=== PATIENT | female | born 1955 | race Caucasian/White ===

== ENCOUNTER 2019-04-15 08:22 | Outpatient (CLI) | payer MEDICARE, SELFPAY ==
[2019-04-15 09:02] LABS: Basophils Absolute Auto 0.1 K/mm3 (0.0-0.1); Basophils Percent Auto 0.4 % (0.2-1.2); Eosinophils Absolute Auto 0.4 K/mm3 (0-0.3); Eosinophils Percent Auto 2.6 % (0-4.4); Hemoglobin 13.2 g/dL (12.0-15.0); Immature Granulocyte Absolute 0.07 K/mm3 (0.00-0.031); Immature Granulocyte Percent A 0.5 % (0-0.5); Lymphocytes Absolute Auto 3.87 K/mm3 (0.9-3.2); Mean Corpuscular Hemoglobin 28.9 pg (26-34); Mean Corpuscular Volume 87.5 fl (80-100); Mean Platelet Volume 9.9 fl (7.4-10.4); Monocytes Absolute Auto 1.7 K/mm3 (0.1-0.6); Monocytes Percent Auto 11.3 % (2.6-8.5); Neutrophils Absolute Auto 9.3 K/mm3 (1.3-6.7); Neutrophils Percent Auto 60.2 % (45.5-73.1); Platelet Count Result 388 k/mm3 (150-375); Red Blood Count 4.57 M/mm3 (4.2-5.4); Red Cell Distribution Width 14.6 % (11.5-14.5); White Blood Count 15.5 K/mm3 (4.5-10.0)
[2019-04-15 09:13] LABS: Alanine Aminotransferase 14 U/L (4-35); Alkaline Phosphatase 105 U/L (38-126); Aspartate Amino Transferase 22 U/L (14-36); Bilirubin,Total 0.4 mg/dL (0.2-1.3); Blood Urea Nitrogen 6 mg/dL (7-17); Calcium 9.5 mg/dL (8.4-10.2); Carbon Dioxide 29 mmol/L (22-30); Chloride 90 mmol/L (98-107); Cholesterol 146 mg/dL (0-200); Estimated Glomerular Filt Rate > 60; Glucose 102 mg/dL (65-105); HDL Direct 47 mg/dL; Potassium 4.2 mmol/L (3.4-5.0); Sodium 133 mmol/L (137-145); Triglycerides 129 mg/dL (<150)
[2019-04-15 09:24] LABS: LDL Cholesterol Direct 80 mg/dL
== END 2019-04-15 08:23 | disposition home or self-care (01) ==
PROVIDERS: PCP Internal Medicine; Visit Provider Internal Medicine
DX: E78.5 Hyperlipidemia, unspecified (principal); R73.03 Prediabetes; D75.1 Secondary polycythemia; I10 Essential (primary) hypertension; Z90.09 Acquired absence of other part of head and neck; Z79.899 Other long term (current) drug therapy
CPT/HCPCS: 36415; 80053; 80061; 83036; 84443; 85025

== ENCOUNTER 2019-05-07 08:54 | Outpatient (CLI) | payer MEDICARE, SELFPAY ==
--- NOTE | ~2019-05-07 | CT_ITS ---
EXAMINATION: CT chest wo con EXAM DATE: 05/07/2019 09:38 INDICATION: Lung nodule follow-up. TECHNIQUE: Spiral CT of the chest without contrast. Axial, coronal and sagittal images were reviewe d. Coronal maximum intensity pixel images of chest reviewed. The dose-length product (DLP) for this examination was 116.47 mGy-cm. The exposure was tailored according to patient size (auto mA exposur e control), and iterative reconstruction (ASIR) was used as additional dose reduction technique. Comp arison is made to prior examination from 12/14/2018. FINDINGS: Again there are scattered small pulmonary nodules up to 4 mm. The previously seen 1 cm med ial middle and lower lobe opacities have resolved. These were likely small foci of infection or posti nfectious. There is mild emphysema. There are no pleural or pericardial effusions. Tracheobronchia l tree is patent. There is no mediastinal, hilar or axillary lymphadenopathy. There is no pneumot horax. Heart normal in size. There is moderate coronary arterial calcification, arterial sclerosi s. Upper abdomen is unremarkable. There is moderate thoracic spondylosis without osteoblastic or o steolytic lesions identified. IMPRESSION: 1. Resolution of previously seen new larger pulmonary nodules. 2. Stable scattered granulomas. 3. Mild emphysema. Reviewed, dictated and finalized at location A.
[2019-05-07 10:03] LABS: Basophils Absolute Auto 0.1 K/mm3 (0.0-0.1); Basophils Percent Auto 0.3 % (0.2-1.2); Eosinophils Absolute Auto 0.2 K/mm3 (0-0.3); Eosinophils Percent Auto 1.4 % (0-4.4); Hematocrit 38.7 % (37.0-47.0); Hemoglobin 12.8 g/dL (12.0-15.0); Immature Granulocyte Absolute 0.09 K/mm3 (0.00-0.031); Immature Granulocyte Percent A 0.6 % (0-0.5); Lymphocytes Absolute Auto 4.68 K/mm3 (0.9-3.2); Lymphocytes Percent Auto 32.7 % (18.3-44.2); Mean Corpuscular HGB Conc 33.1 g/dl (32-36); Mean Corpuscular Hemoglobin 29.2 pg (26-34); Mean Corpuscular Volume 88.2 fl (80-100); Mean Platelet Volume 9.8 fl (7.4-10.4); Monocytes Absolute Auto 1.3 K/mm3 (0.1-0.6); Monocytes Percent Auto 8.9 % (2.6-8.5); Neutrophils Percent Auto 56.1 % (45.5-73.1); Platelet Count Result 417 k/mm3 (150-375); Red Blood Count 4.39 M/mm3 (4.2-5.4); Red Cell Distribution Width 14.6 % (11.5-14.5); White Blood Count 14.3 K/mm3 (4.5-10.0)
== END 2019-05-07 08:55 | disposition home or self-care (01) ==
PROVIDERS: PCP Internal Medicine; Visit Provider Nurse Practitioner Family
DX: D72.829 Elevated white blood cell count, unspecified (principal); R91.1 Solitary pulmonary nodule; J43.9 Emphysema, unspecified; R91.8 Other nonspecific abnormal finding of lung field
CPT/HCPCS: 36415; 71250; 85025

== ENCOUNTER 2019-08-21 10:11 | Outpatient (CLI) | payer MEDICARE, SELFPAY ==
[2019-08-21 11:01] LABS: Albumin Level 4.1 g/dL (3.5-5.1); Blood Urea Nitrogen 7 mg/dL (7-17); Calcium 9.3 mg/dL (8.4-10.2); Carbon Dioxide 29 mmol/L (22-30); Chloride 98 mmol/L (98-107); Estimated Glomerular Filt Rate > 60; Glucose 93 mg/dL (65-105); Phosphorus 3.9 mg/dL (2.5-4.5); Potassium 3.8 mmol/L (3.4-5.0); Sodium 134 mmol/L (137-145)
[2019-08-21 13:28] LABS: Creatinine Urine 125.2 mg/dL; Total Protein Urine Random 23 mg/dL
== END 2019-08-21 10:12 | disposition home or self-care (01) ==
LOC: ANHLAB 10:14
PROVIDERS: PCP Internal Medicine; Visit Provider Internal Medicine Nephrology
DX: E87.1 Hypo-osmolality and hyponatremia (principal); I10 Essential (primary) hypertension
CPT/HCPCS: 36415; 80069; 82570; 84156

== ENCOUNTER 2019-11-02 10:19 | Outpatient (CLI) | payer MEDICARE, SELFPAY ==
[2019-11-02 11:00] LABS: Cholesterol 172 mg/dL (0-200); HDL Direct 42 mg/dL; Triglycerides 185 mg/dL (<150)
[2019-11-02 11:24] LABS: LDL Cholesterol Direct 103 mg/dL
== END 2019-11-02 10:20 | disposition home or self-care (01) ==
PROVIDERS: PCP Internal Medicine; Visit Provider Internal Medicine
DX: E78.5 Hyperlipidemia, unspecified (principal)
CPT/HCPCS: 36415; 80061

== ENCOUNTER 2020-04-25 08:20 | Outpatient (CLI) | payer MEDICARE, SELFPAY ==
[2020-04-25 09:45] LABS: Alanine Aminotransferase 12 U/L (4-35); Albumin Level 3.9 g/dL (3.5-5.1); Alkaline Phosphatase 88 U/L (38-126); Aspartate Amino Transferase 19 U/L (14-36); Bilirubin,Total 0.3 mg/dL (0.2-1.3); Cholesterol 170 mg/dL (0-200); HDL Direct 42 mg/dL; Triglycerides 184 mg/dL (<150)
[2020-04-25 09:57] LABS: LDL Cholesterol Direct 99 mg/dL
[2020-04-25 11:04] LABS: Vitamin D 25 Hydroxy > 126.0 ng/mL
== END 2020-04-25 08:21 | disposition home or self-care (01) ==
LOC: ANHLAB 08:30
PROVIDERS: PCP Internal Medicine; Visit Provider Internal Medicine
DX: E78.5 Hyperlipidemia, unspecified (principal); Z90.09 Acquired absence of other part of head and neck; Z79.899 Other long term (current) drug therapy; E55.9 Vitamin D deficiency, unspecified
CPT/HCPCS: 36415; 80061; 80076; 82306; 84443

== ENCOUNTER 2020-07-29 10:07 | Outpatient (CLI) | payer MEDICARE, SELFPAY ==
--- NOTE | ~2020-07-29 | US_ITS ---
EXAMINATION: US carotid duplex BI DATE: 07/29/2020 10:44 INDICATION: Disturbance of skin sensation with right upper extremity numbness. TECHNIQUE: Grayscale, color Doppler, and pulsed Doppler images of the cervical carotid arteries were obtained. The degree of vessel stenosis is placed in one of the following categories: normal, <50%, 5 0-69%, >=70% but less than near-occlusion, near-occlusion, or total occlusion. Note that percent sten osis relative to normal distal artery lumen diameter is indirectly measured from velocity measurement s as described by Hung, et al. Radiology 2003; 229:340-346. COMPARISON: None. FINDINGS: RIGHT: The right common carotid artery (CCA) peak systolic velocity (PSV) is 83 cm/s. The right internal car otid artery (ICA) PSV is 91 cm/s. The right ICA end-diastolic velocity (EDV) is 23 cm/s. The right IC A/CCA PSV ratio is 1.1. Grayscale and color Doppler images yield an estimate of <50% diameter reducti on from plaque in the ICA. The external carotid artery (ECA) PSV is 92 cm/s. There is antegrade flow in the right vertebral artery. LEFT: The left CCA PSV is 56 cm/s. The left ICA PSV is 83 cm/s. The left ICA EDV is 33 cm/s. The left ICA/C CA PSV ratio is 1.5. Grayscale and color Doppler images yield an estimate of <50% diameter reduction from plaque in the ICA. The ECA PSV is 41 cm/s. There is antegrade flow in the left vertebral artery. IMPRESSION: 1. <50% stenosis in the right internal carotid artery. 2. <50% stenosis in the left internal carotid artery. Reviewed, dictated and finalized at location A.
== END 2020-07-29 10:08 | disposition home or self-care (01) ==
PROVIDERS: PCP Internal Medicine; Visit Provider Nurse Practitioner
DX: R20.0 Anesthesia of skin (principal); I65.23 Occlusion and stenosis of bilateral carotid arteries
CPT/HCPCS: 93880

== ENCOUNTER 2020-09-01 08:24 | Outpatient (CLI) | payer MEDICARE, SELFPAY ==
[2020-09-01 08:59] LABS: Albumin Level 3.9 g/dL (3.5-5.1); Anion Gap 8 mmol/L (8-16); Blood Urea Nitrogen 5 mg/dL (7-17); Carbon Dioxide 28 mmol/L (22-30); Chloride 103 mmol/L (98-107); Estimated Glomerular Filt Rate > 60; Glucose 96 mg/dL (65-105); Phosphorus 3.7 mg/dL (2.5-4.5); Potassium 3.6 mmol/L (3.4-5.0); Sodium 139 mmol/L (137-145)
== END 2020-09-01 08:25 | disposition home or self-care (01) ==
LOC: ANHLAB 08:31
PROVIDERS: PCP Internal Medicine; Visit Provider Internal Medicine Nephrology
DX: E87.1 Hypo-osmolality and hyponatremia (principal)
CPT/HCPCS: 36415; 80069

== ENCOUNTER → 2020-10-14 10:07 | Outpatient (CLI) | payer MEDICARE, SELFPAY ==
--- NOTE | ~2020-10-14 | XR_ITS ---
XR finger 3rd LT min 2V DATE: 10/14/2020 10:44 INDICATION: Third digit pain TECHNIQUE: 5 views COMPARISON: None FINDINGS: There is probable old mild fracture deformity of the middle phalanx of the third digit. No recent fracture or dislocation, periosteal reaction or bone destruction, subcutaneous emphysema or radiopaque soft tissue foreign body is noted. Joint spaces are preserved. No erosive changes are not ed. IMPRESSION: Probable mild old healed fracture deformity of the proximal shaft of the middle phalanx o f the third digit; no acute significant finding Reviewed, dictated and finalized at location A. IMPRESSION: Probable mild old healed fracture deformity of the proximal shaft o f the middle phalanx of the third digit; no acute significant finding
== END ==
PROVIDERS: PCP Internal Medicine; Visit Provider Nurse Practitioner
DX: M79.645 Pain in left finger(s) (principal)
CPT/HCPCS: 73140

== ENCOUNTER 2020-10-27 08:32 | Outpatient (CLI) | payer MEDICARE, SELFPAY ==
--- NOTE | ~2020-10-27 | MM_ITS ---
EXAMINATION: MM screening [facility] BI w jaylon HISTORY: Screening TECHNIQUE: Craniocaudal and mediolateral oblique 3-D tomosynthesis images were obtained and synthetic 2-D images were generated. CAD analysis was submitted and interpreted. COMPARISON: Comparison to multiple prior studies sequentially, with oldest reviewed study dated 05/22. BREAST PARENCHYMAL COMPOSITION: There are scattered areas of fibroglandular density. FINDINGS: There is no evidence of suspicious mass, calcification, or architectural distortion to sugg est malignancy in either breast. There has been no suspicious interval change. IMPRESSION: 1. No mammographic evidence of malignancy. 2. Recommend routine screening mammography in one year. BI-RADS Category 1: Negative Reviewed, dictated and finalized at location A.
== END 2020-10-27 08:33 | disposition home or self-care (01) ==
LOC: ANHIMG 08:36
PROVIDERS: PCP Internal Medicine; Visit Provider Obstetrics & Gynecology
DX: Z12.31 Encounter for screening mammogram for malignant neoplasm of breast (principal)
CPT/HCPCS: 77063; 77067

== ENCOUNTER 2020-12-22 08:13 | Outpatient (CLI) | payer MEDICARE, SELFPAY ==
[2020-12-22 08:47] LABS: Alanine Aminotransferase 12 U/L (4-35); Albumin Level 4.1 g/dL (3.5-5.1); Alkaline Phosphatase 90 U/L (38-126); Anion Gap 8 mmol/L (8-16); Aspartate Amino Transferase 19 U/L (14-36); Bilirubin,Total 0.3 mg/dL (0.2-1.3); Blood Urea Nitrogen 13 mg/dL (7-17); Calcium 9.4 mg/dL (8.4-10.2); Carbon Dioxide 27 mmol/L (22-30); Chloride 100 mmol/L (98-107); Cholesterol 149 mg/dL (0-200); Estimated Glomerular Filt Rate > 60; Glucose 96 mg/dL (65-110); HDL Direct 48 mg/dL; Sodium 135 mmol/L (137-145); Triglycerides 156 mg/dL (<150)
[2020-12-22 08:58] LABS: LDL Cholesterol Direct 74 mg/dL
[2020-12-22 09:22] LABS: Vitamin D 25 Hydroxy 95.1 ng/mL
== END 2020-12-22 08:14 | disposition home or self-care (01) ==
LOC: ANHLAB 08:18
PROVIDERS: PCP Internal Medicine; Visit Provider Internal Medicine
DX: E87.1 Hypo-osmolality and hyponatremia (principal); R73.03 Prediabetes; Z79.899 Other long term (current) drug therapy; E78.5 Hyperlipidemia, unspecified; E55.9 Vitamin D deficiency, unspecified
CPT/HCPCS: 36415; 80053; 80061; 82306; 83036

== ENCOUNTER → 2021-01-26 04:03 | Outpatient (CLI) | payer MEDICARE, SELFPAY ==
[2021-01-26 13:19] LABS: Influenza Control Positive
[2021-01-26 20:05] LABS: SARS-CoV-2 RNA PCR Negative
== END ==
PROVIDERS: PCP Internal Medicine; Visit Provider Internal Medicine
DX: R09.89 Other specified symptoms and signs involving the circulatory and respiratory systems (principal); Z20.822 Contact with and (suspected) exposure to COVID-19
CPT/HCPCS: 87804; C9803; U0003; U0005

== ENCOUNTER 2021-04-26 07:35 | Outpatient (CLI) | payer MEDICARE, SELFPAY ==
[2021-04-26 08:34] LABS: Anion Gap 7 mmol/L (8-16); Blood Urea Nitrogen 24 mg/dL (7-17); Calcium 9.2 mg/dL (8.4-10.2); Carbon Dioxide 25 mmol/L (22-30); Chloride 104 mmol/L (98-107); Estimated Glomerular Filt Rate > 60; Glucose 101 mg/dL (65-110); Potassium 4.9 mmol/L (3.4-5.0); Sodium 136 mmol/L (137-145)
[2021-04-26 08:53] LABS: Vitamin D 25 Hydroxy 76.7 ng/mL
== END 2021-04-26 07:36 | disposition home or self-care (01) ==
LOC: ANHLAB 07:40
PROVIDERS: PCP Internal Medicine; Visit Provider Internal Medicine
DX: R73.03 Prediabetes (principal); Z79.899 Other long term (current) drug therapy; E55.9 Vitamin D deficiency, unspecified
CPT/HCPCS: 36415; 80048; 82306; 83036

== ENCOUNTER → 2021-04-30 03:34 | Outpatient (CLI) | payer MEDICARE, SELFPAY ==
[2021-04-30 11:17] LABS: Influenza A QL RT-PCR Negative (Negative); Influenza B QL RT-PCR Negative (Negative); SARS-CoV-2 RNA PCR Negative
== END ==
PROVIDERS: PCP Internal Medicine; Visit Provider Internal Medicine
DX: R68.89 Other general symptoms and signs (principal); Z20.822 Contact with and (suspected) exposure to COVID-19
CPT/HCPCS: 87502; C9803; U0003; U0005

== ENCOUNTER 2021-05-07 09:23 | Outpatient (CLI) | payer MEDICARE, SELFPAY ==
[2021-05-08 02:05] LABS: Rheumatoid Factor < 8.6 IU/ML (<12)
[2021-05-12 11:48] LABS: Anti Cyclic Citrullinated Pept <16 Units (<20)
== END 2021-05-07 09:24 | disposition home or self-care (01) ==
PROVIDERS: PCP Internal Medicine; Visit Provider Internal Medicine
DX: M19.041 Primary osteoarthritis, right hand (principal); M19.042 Primary osteoarthritis, left hand
CPT/HCPCS: 36415; 86200; 86430

== ENCOUNTER 2021-05-11 09:46 | Outpatient (CLI) | payer MEDICARE, SELFPAY ==
--- NOTE | ~2021-05-11 | DEXA_ITS ---
Bone Density Report Name: JOE BEJARANO I Age: 65 Sex: Female Ethnicity: White Date of : 1955 Indication: postmenopausal; height loss; prior fracture; asthma or emphysema; Referring Provider: RANJEET CRUZ Study: Bone densitometry was performed. Exam Date: May 11, 2021 Accession number: [id number] Bone Density: Region BMD T-score Z-score Classification AP Spine (L1-L4) 0.976 -0.6 1.2 Normal Femoral Neck (Left) 0.836 -0.1 1.5 Normal Total Hip (Left) 0.941 0.0 1.3 Normal Total Hip Bilateral Avg 0.923 -0.2 1.2 Normal Femoral Neck (Right) 0.798 -0.5 1.2 Normal Total Hip (Right) 0.905 -0.3 1.0 Normal World Health Organization criteria for BMD impression classify patients as: Normal (T-score at or above -1.0), Osteopenia (T-score between -1.0 and -2.5), or Osteoporosis (T-score at or below -2.5). 10-year Fracture Risk: FRAX not reported because: All T-scores for Spine Total, Hip Total, Femoral Neck at or above -1.0 Prior hip or vertebral fracture Clinical Information Provided by Patient: Have had a previous hip or vertebral fracture Has had a low trauma fracture Smokes Has the following medical conditions: Asthma or Emphysema Patient maximum height was 62 Menopause Age: 51 No regular weight bearing exercise Drinks caffeinated beverages Onset of menses at age 10 Number of children 1 Impression: The patient has normal bone mass. The patient has risk factors, including: smoking, previous fracture. Discussion: INCREASED RISK OF FRACTURE DUE TO HISTORY OF FRACTURE. The patient's previous fracture puts the patient at high risk of a future fracture. In untreated patients, the risk of osteoporotic fracture increases approximately two-fold for each 1.0 SD decrease in T-score. Low bone density is not the only risk factor for fracture; also consider factors such as patient's age, frailty or poor health, risk of falling, risk of injury, previous osteoporotic fracture, family history of osteoporosis, cigarette smoking, low body weight, etc. Not everyone with a low trauma fracture has osteoporosis; osteomalacia and other metabolic bone disorders should also be considered. Patients who have osteoporosis should be evaluated for specific diseases and conditions (secondary causes) that may cause or contribute to bone loss and fracture risk. National Osteoporosis Foundation (NOF) recommends pharmacologic intervention for patients with a prior hip or vertebral fracture regardless of BMD T-score. The patient should follow a healthful lifestyle (good nutrition with adequate calcium and vitamin D, and appropriate weight-bearing exercise). Follow-Up: Consider a repeat BMD and Vertebral Fracture Assessment (VFA) exam in 2 years or sooner if medically necessary, to reassess this patient's status. Reported by: DO on 05/11
== END 2021-05-11 09:47 | disposition home or self-care (01) ==
PROVIDERS: PCP Internal Medicine; Visit Provider Internal Medicine
DX: Z78.0 Asymptomatic menopausal state (principal)
CPT/HCPCS: 77080

== ENCOUNTER 2021-05-18 13:02 | Outpatient (CLI) | payer MEDICARE, SELFPAY ==
--- NOTE | ~2021-05-18 | CT_ITS ---
EXAMINATION: CT lung screening DATE: 05/18/2021 13:33 INDICATION: Personal history of nicotine dependence, current smoker with 30 pack year history TECHNIQUE: Computed tomography (CT) of the chest was performed without intravenous contrast. The dose -length product (DLP) was 106.80 mGy-cm. Automated exposure control and iterative reconstruction tech [employer] were employed. COMPARISON: 05/07/2019 FINDINGS: There are multiple stable pulmonary nodules scattered throughout the lungs. The largest sarah sures 5 mm in the right lower lobe. There is mild emphysema. The lungs are free of acute opacities. T here is no pleural effusion or pneumothorax. The left thyroid lobe surgically absent. No pathological ly enlarged thoracic lymph nodes are identified. The heart size is normal. Calcified coronary artery atherosclerosis is noted. There is moderate thoracic spondylosis. IMPRESSION: 1. Lung-RADS category 2: Benign appearance or behavior. Continue annual screening with noncontrast lo w-dose chest CT in 12 months. Reviewed, dictated and finalized at location B. IMPRESSION: 1. Lung-RADS category 2: Benign appearance or behavior. Continue annual screeni ng with noncontrast low-dose chest CT in 12 months.
--- NOTE | ~2021-05-18 | XR_ITS ---
XR hip LT min 2V 05/18/2021 13:28 Indication: Left hip pain Procedure: 2 views left hip Comparison: 01/25/2017 Findings: No fracture, subluxation or dislocation. No significant soft tissue abnormality. No foreign bodies. Impression: 1: No acute bone or joint abnormality. Reviewed, dictated and finalized at location A. Impression: 1: No acute bone or joint abnormality.
== END 2021-05-18 13:03 | disposition home or self-care (01) ==
PROVIDERS: PCP Internal Medicine; Visit Provider Internal Medicine
DX: Z12.2 Encounter for screening for malignant neoplasm of respiratory organs (principal); F17.210 Nicotine dependence, cigarettes, uncomplicated
CPT/HCPCS: 71271; 73502

== ENCOUNTER 2021-11-08 08:03 | Outpatient (CLI) | payer MEDICARE, SELFPAY ==
[2021-11-08 09:00] LABS: Alanine Aminotransferase 16 U/L (6-35); Albumin Level 3.9 g/dL (3.5-5.1); Alkaline Phosphatase 94 U/L (38-126); Anion Gap 9 mmol/L (8-16); Aspartate Amino Transferase 24 U/L (14-36); Bilirubin,Total 0.3 mg/dL (0.2-1.3); Blood Urea Nitrogen 14 mg/dL (7-17); Calcium 9.2 mg/dL (8.4-10.2); Carbon Dioxide 22 mmol/L (22-30); Chloride 97 mmol/L (98-107); Cholesterol 156 mg/dL (0-200); Estimated Glomerular Filt Rate > 60; Glucose 102 mg/dL (65-110); HDL Direct 37 mg/dL; Potassium 4.1 mmol/L (3.4-5.0); Sodium 128 mmol/L (137-145); Triglycerides 254 mg/dL (<150)
[2021-11-08 09:11] LABS: LDL Cholesterol Direct 77 mg/dL
== END 2021-11-08 08:04 | disposition home or self-care (01) ==
LOC: ANHLAB 08:05
PROVIDERS: PCP Internal Medicine; Visit Provider Internal Medicine
DX: E87.1 Hypo-osmolality and hyponatremia (principal); R73.03 Prediabetes; Z79.899 Other long term (current) drug therapy; E78.5 Hyperlipidemia, unspecified
CPT/HCPCS: 36415; 80053; 80061; 83036

== ENCOUNTER 2022-03-04 15:14 | Outpatient (CLI) | payer MEDICARE, SELFPAY ==
--- NOTE | ~2022-03-04 | MM_ITS ---
EXAMINATION: MM screening [facility] BI w jaylon HISTORY: Screening mammogram TECHNIQUE: Craniocaudal and mediolateral oblique 3-D tomosynthesis images were obtained and synthetic 2-D images were generated. CAD analysis was submitted and interpreted. COMPARISON: 10/27/2020, 12/12/2017, 11/16/2015 bilateral screening mammogram examinations BREAST PARENCHYMAL COMPOSITION: There are scattered areas of fibroglandular density. FINDINGS: Scattered bilateral benign calcifications are again noted. There is no evidence of suspicio us mass, calcification, or architectural distortion to suggest malignancy in either breast. There has been no suspicious interval change. IMPRESSION: 1. No mammographic evidence of malignancy. 2. Recommend routine screening mammography in one year. BI-RADS Category 2: Benign finding(s). Reviewed, dictated and finalized at location B. TENDER
== END 2022-03-04 15:15 | disposition home or self-care (01) ==
LOC: ANHIMG 15:17
PROVIDERS: PCP Internal Medicine; Visit Provider Obstetrics & Gynecology
DX: Z12.31 Encounter for screening mammogram for malignant neoplasm of breast (principal)
CPT/HCPCS: 77063; 77067

== ENCOUNTER 2022-04-30 09:18 | Outpatient (CLI) | payer MEDICARE, SELFPAY ==
[2022-04-30 09:54] LABS: Alanine Aminotransferase 17 U/L (6-35); Albumin Level 4.3 g/dL (3.5-5.1); Alkaline Phosphatase 90 U/L (38-126); Anion Gap 3 mmol/L (8-16); Aspartate Amino Transferase 21 U/L (14-36); Bilirubin,Total 0.4 mg/dL (0.2-1.3); Blood Urea Nitrogen 13 mg/dL (7-17); Calcium 9.2 mg/dL (8.4-10.2); Carbon Dioxide 27 mmol/L (22-30); Chloride 102 mmol/L (98-107); Cholesterol 171 mg/dL (0-200); Estimated Glomerular Filt Rate > 60; Glucose 97 mg/dL (65-110); HDL Direct 44 mg/dL; Sodium 132 mmol/L (137-145); Triglycerides 232 mg/dL (<150)
[2022-04-30 10:01] LABS: LDL Cholesterol Direct 83 mg/dL
[2022-04-30 10:05] LABS: Vitamin D 25 Hydroxy 57.2 ng/mL
[2022-04-30 11:18] LABS: Hemoglobin A1C 5.9 % (<5.7)
== END 2022-04-30 09:19 | disposition home or self-care (01) ==
PROVIDERS: PCP Internal Medicine; Visit Provider Nurse Practitioner
DX: E78.5 Hyperlipidemia, unspecified (principal); R73.03 Prediabetes; E55.9 Vitamin D deficiency, unspecified
CPT/HCPCS: 36415; 80053; 80061; 82306; 83036

== ENCOUNTER 2022-05-19 10:17 | Outpatient (CLI) | payer MEDICARE, SELFPAY ==
--- NOTE | ~2022-05-19 | CT_ITS ---
EXAMINATION: CT lung screening DATE: 05/19/2022 10:36 INDICATION: Personal history of nicotine dependence, current smoker with 40 pack year history TECHNIQUE: Computed tomography (CT) of the chest was performed without intravenous contrast. The dose -length product (DLP) was 101.36 mGy-cm. Automated exposure control and iterative reconstruction tech [employer] were employed. COMPARISON: 05/18/2021 FINDINGS: Again seen are multiple stable pulmonary nodules scattered throughout the lungs. The larges t measures 5 mm in the right lower lobe. There is mild emphysema. No pleural effusion or pneumothorax . The lungs are free of acute opacities. There are changes of left hemithyroidectomy. No pathological ly enlarged thoracic lymph nodes are identified. The heart size is normal. Calcified coronary artery atherosclerosis is noted. There is moderate thoracic spondylosis. IMPRESSION: 1. Lung-RADS category 2: Benign appearance or behavior. Continue annual screening with noncontrast lo w-dose chest CT in 12 months. Reviewed, dictated and finalized at location L. IMPRESSION: 1. Lung-RADS category 2: Benign appearance or behavior. Continue annual screeni ng with noncontrast low-dose chest CT in 12 months.
== END 2022-05-19 10:18 | disposition home or self-care (01) ==
PROVIDERS: PCP Internal Medicine; Visit Provider Physician Assistant
DX: Z12.2 Encounter for screening for malignant neoplasm of respiratory organs (principal); F17.210 Nicotine dependence, cigarettes, uncomplicated
CPT/HCPCS: 71271

== ENCOUNTER 2022-11-16 14:20 | Outpatient (CLI) | payer MEDICARE, SELFPAY ==
[2022-11-16 14:57] LABS: Basophils Absolute Auto 0.1 K/mm3 (0.0-0.1); Basophils Percent Auto 0.5 % (0.2-1.2); Eosinophils Absolute Auto 0.3 K/mm3 (0-0.3); Eosinophils Percent Auto 2.3 % (0-4.4); Hematocrit 38.2 % (37.0-47.0); Hemoglobin 11.8 g/dL (12.0-15.0); Immature Granulocyte Absolute 0.06 K/mm3 (0.00-0.031); Immature Granulocyte Percent A 0.4 % (0-0.5); Lymphocytes Absolute Auto 4.43 K/mm3 (0.9-3.2); Lymphocytes Percent Auto 32.8 % (18.3-44.2); Mean Corpuscular HGB Conc 30.9 g/dl (32-36); Mean Corpuscular Hemoglobin 26.9 pg (26-34); Mean Platelet Volume 10.8 fl (7.4-10.4); Monocytes Absolute Auto 1.3 K/mm3 (0.1-0.6); Monocytes Percent Auto 9.3 % (2.6-8.5); Neutrophils Absolute Auto 7.4 K/mm3 (1.3-6.7); Neutrophils Percent Auto 54.7 % (45.5-73.1); Platelet Count Result 402 k/mm3 (150-375); Red Blood Count 4.39 M/mm3 (4.2-5.4); Red Cell Distribution Width 15.5 % (11.5-14.5); White Blood Count 13.5 K/mm3 (4.5-10.0)
[2022-11-16 15:23] LABS: CRP < 0.5 mg/dL (<1.0)
[2022-11-16 15:40] LABS: Erythrocyte Sedimentation Rate 17 mm/hr (0-20)
== END 2022-11-16 14:21 | disposition home or self-care (01) ==
LOC: ANHLAB 14:21
PROVIDERS: PCP Family Medicine; Visit Provider Student in an Organized Health Care Education/Training Program
DX: R51.9 Headache, unspecified (principal)
CPT/HCPCS: 36415; 85025; 85652; 86140; 86334

== ENCOUNTER 2022-12-03 08:14 | Outpatient (CLI) | payer MEDICARE, SELFPAY ==
--- NOTE | ~2022-12-03 | MR_ITS ---
EXAMINATION: MR brain/brain stem wo/w con DATE: 12/03/2022 09:09 INDICATION: Left temporal headache. TECHNIQUE: Magnetic resonance imaging (MRI) of the brain and brainstem was performed without and with 17 mL MultiHance intravenous contrast. COMPARISON: Brain MRI 02/14/2006 FINDINGS: There are scattered areas of nonspecific increased T2-weighted signal intensity in the cere bral white matter and katharine. There is no intracranial hemorrhage, acute infarction, or abnormal intrac ranial mass lesion. The ventricles are normal in size. There are likely changes of ocular lens replac ement surgeries. The mastoid air cells are normal. The paranasal sinuses are clear. IMPRESSION: 1. Mild nonspecific cerebral white matter disease and pontine disease, which likely represents chroni c small vessel ischemic disease. Reviewed, dictated and finalized at location A. IMPRESSION: 1. Mild nonspecific cerebral white matter disease and pontine disease, which sean wilson represents chronic small vessel ischemic disease.
== END 2022-12-03 08:15 | disposition home or self-care (01) ==
PROVIDERS: PCP Family Medicine; Visit Provider Student in an Organized Health Care Education/Training Program
DX: R51.9 Headache, unspecified (principal); R90.82 White matter disease, unspecified; G93.89 Other specified disorders of brain
CPT/HCPCS: 70553; A9577

== ENCOUNTER 2022-12-22 08:03 | Outpatient (CLI) | payer MEDICARE, SELFPAY ==
[2022-12-22 09:01] LABS: Alanine Aminotransferase 13 U/L (6-35); Albumin Level 4.2 g/dL (3.5-5.1); Alkaline Phosphatase 83 U/L (38-126); Anion Gap 8 mmol/L (8-16); Aspartate Amino Transferase 21 U/L (14-36); Bilirubin,Total 0.4 mg/dL (0.2-1.3); Blood Urea Nitrogen 20 mg/dL (7-17); Calcium 9.4 mg/dL (8.4-10.2); Carbon Dioxide 24 mmol/L (22-30); Chloride 101 mmol/L (98-107); Estimated Glomerular Filt Rate > 60; Glucose 104 mg/dL (65-110); Potassium 4.2 mmol/L (3.4-5.0); Sodium 133 mmol/L (137-145)
== END 2022-12-22 08:04 | disposition home or self-care (01) ==
PROVIDERS: PCP Family Medicine; Visit Provider Family Medicine
DX: E87.1 Hypo-osmolality and hyponatremia (principal)
CPT/HCPCS: 36415; 80053

== ENCOUNTER 2023-02-02 16:39 | Outpatient (CLI) | payer MEDICARE, SELFPAY ==
[2023-02-02 18:54] LABS: Strep Group A RT-PCR NOT DETECTED (Negative)
== END 2023-02-02 16:40 | disposition home or self-care (01) ==
PROVIDERS: PCP Family Medicine; Visit Provider Nurse Practitioner Family
DX: J02.9 Acute pharyngitis, unspecified (principal)
CPT/HCPCS: 87651; 87880

== ENCOUNTER 2023-04-06 11:50 | Outpatient (CLI) | payer MEDICARE, SELFPAY ==
--- NOTE | ~2023-04-06 | MM_ITS ---
EXAMINATION: MM screening [facility] BI w jaylon HISTORY: Screening mammogram TECHNIQUE: Craniocaudal and mediolateral oblique 3-D tomosynthesis images were obtained and synthetic 2-D images were generated. CAD analysis was submitted and interpreted. COMPARISON: 03/04/2022, 10/27/2020 bilateral screening mammogram examinations BREAST PARENCHYMAL COMPOSITION: There are scattered areas of fibroglandular density. FINDINGS: Scattered benign calcifications are again noted. There is no evidence of suspicious mass, c alcification, or architectural distortion to suggest malignancy in either breast. There has been no s uspicious interval change. IMPRESSION: 1. No mammographic evidence of malignancy. 2. Recommend routine screening mammography in one year. BI-RADS Category 2: Benign finding(s). Reviewed, dictated and finalized at location A. GER FRAUD
== END 2023-04-06 11:51 | disposition home or self-care (01) ==
PROVIDERS: PCP Family Medicine; Visit Provider Obstetrics & Gynecology
DX: Z12.31 Encounter for screening mammogram for malignant neoplasm of breast (principal)
CPT/HCPCS: 77063; 77067

== ENCOUNTER 2023-05-22 13:43 | Outpatient (CLI) | payer MEDICARE, SELFPAY ==
--- NOTE | ~2023-05-22 | CT_ITS ---
EXAMINATION: CT lung screening DATE: 05/22/2023 14:00 INDICATION: Personal history nicotine dependence, current smoker with 40 pack year history TECHNIQUE: Computed tomography (CT) of the chest was performed without intravenous contrast. The dose -length product (DLP) was 97.73 mGy-cm. Automated exposure control and iterative reconstruction techn [employer] were employed. COMPARISON: 05/19/2022 FINDINGS: Multiple stable pulmonary nodules are again seen scattered throughout the lungs. The larges t measures 5 mm in the right lower lobe. There is mild emphysema. No new pulmonary nodules are identi fied. No pleural effusion or pneumothorax. Lungs are free of focal airspace opacities. No pathologica lly enlarged thoracic lymph nodes are identified. The heart size is normal. There are changes of left hemithyroidectomy. There is moderate thoracic spondylosis. Calcified coronary artery atherosclerosis is noted. IMPRESSION: 1. Lung-RADS category 2: Benign appearance or behavior. Continue annual screening with noncontrast lo w-dose chest CT in 12 months. Reviewed, dictated and finalized at location F. IMPRESSION: 1. Lung-RADS category 2: Benign appearance or behavior. Continue annual screeni ng with noncontrast low-dose chest CT in 12 months.
== END 2023-05-22 13:44 | disposition home or self-care (01) ==
LOC: ANHIMG 13:45
PROVIDERS: PCP Family Medicine; Visit Provider Physician Assistant
DX: Z12.2 Encounter for screening for malignant neoplasm of respiratory organs (principal); Z87.891 Personal history of nicotine dependence
CPT/HCPCS: 71271

== ENCOUNTER 2023-05-29 08:28 | Outpatient (CLI) | payer MEDICARE, SELFPAY ==
[2023-05-29 09:07] LABS: Basophils Absolute Auto 0.1 K/mm3 (0.0-0.1); Basophils Percent Auto 0.5 % (0.2-1.2); Eosinophils Absolute Auto 0.2 K/mm3 (0-0.3); Eosinophils Percent Auto 2.1 % (0-4.4); Hematocrit 38.5 % (37.0-47.0); Hemoglobin 11.9 g/dL (12.0-15.0); Immature Granulocyte Absolute 0.04 K/mm3 (0.00-0.031); Immature Granulocyte Percent A 0.4 % (0-0.5); Lymphocytes Absolute Auto 4.01 K/mm3 (0.9-3.2); Lymphocytes Percent Auto 38.4 % (18.3-44.2); Mean Corpuscular HGB Conc 30.9 g/dl (32-36); Mean Corpuscular Hemoglobin 26.2 pg (26-34); Mean Corpuscular Volume 84.6 fl (80-100); Mean Platelet Volume 10.4 fl (7.4-10.4); Monocytes Absolute Auto 0.8 K/mm3 (0.1-0.6); Monocytes Percent Auto 7.9 % (2.6-8.5); Neutrophils Absolute Auto 5.3 K/mm3 (1.3-6.7); Neutrophils Percent Auto 50.7 % (45.5-73.1); Platelet Count Result 415 k/mm3 (150-375); Red Blood Count 4.55 M/mm3 (4.2-5.4); Red Cell Distribution Width 16.1 % (11.5-14.5); White Blood Count 10.5 K/mm3 (4.5-10.0)
[2023-05-29 09:18] LABS: Alanine Aminotransferase 14 U/L (6-35); Albumin Level 4.1 g/dL (3.5-5.1); Alkaline Phosphatase 72 U/L (38-126); Anion Gap 5 mmol/L (4-12); Aspartate Amino Transferase 20 U/L (14-36); Bilirubin,Total 0.3 mg/dL (0.2-1.3); Blood Urea Nitrogen 18 mg/dL (7-17); Calcium 9.5 mg/dL (8.4-10.2); Carbon Dioxide 28 mmol/L (22-30); Chloride 107 mmol/L (98-107); Cholesterol 225 mg/dL (0-200); Estimated Glomerular Filt Rate > 60; Glucose 106 mg/dL (65-110); HDL Direct 38 mg/dL; Sodium 140 mmol/L (137-145); Triglycerides 233 mg/dL (<150)
[2023-05-29 09:29] LABS: LDL Cholesterol Direct 145 mg/dL
[2023-05-29 10:50] LABS: Hemoglobin A1C 6.3 % (<5.7)
== END 2023-05-29 08:29 | disposition home or self-care (01) ==
PROVIDERS: PCP Family Medicine; Visit Provider Family Medicine
DX: R91.8 Other nonspecific abnormal finding of lung field (principal); E78.2 Mixed hyperlipidemia; Z79.899 Other long term (current) drug therapy
CPT/HCPCS: 36415; 80053; 80061; 83036; 85025

== ENCOUNTER 2023-06-03 07:49 | Outpatient (CLI) | payer MEDICARE, SELFPAY ==
--- NOTE | ~2023-06-03 | DEXA_ITS ---
Bone Density Report Name: JOE BEJARANO I Age: 68 Sex: Female Ethnicity: White Date of : 1955 Indication: postmenopausal; screening for osteoporosis; height loss; inflammatory bowel disease; history of glucocorticoids; prior fracture; cancer; asthma or emphysema; Referring Provider: FABI VUONG Study: Bone densitometry was performed. Exam Date: June 03, 2023 Accession number: [id number] Bone Density: Region BMD T-score Z-score Classification AP Spine(L1-L4) 0.987 -0.5 1.5 Normal Femoral Neck (Left) 0.775 -0.7 1.1 Normal Total Hip (Left) 0.918 -0.2 1.2 Normal Femoral Neck (Right) 0.817 -0.3 1.5 Normal Total Hip (Right) 0.981 0.3 1.8 Normal Total Hip Mean 0.949 0.1 1.5 Normal World Health Organization criteria for BMD impression classify patients as: Normal (T-score at or above -1.0), Osteopenia (T-score between -1.0 and -2.5), or Osteoporosis (T-score at or below -2.5). 10-year Fracture Risk: FRAX not reported because: All T-scores for Spine Total, Hip Total, Femoral Neck at or above -1.0 Prior hip or vertebral fracture Clinical Information Provided by Patient: Have had a previous hip or vertebral fracture Has had a low trauma fracture Smokes Has taken Glucocorticoids Has the following medical conditions: Asthma or Emphysema, Cancer, Inflammatory bowel diseases Patient maximum height was 62 Menopause Age: 51 No regular weight bearing exercise Drinks caffeinated beverages Onset of menses at age 10 Number of children 1 Missed period for more than 6 months in a row Impression: The patient has normal bone mass. The patient has risk factors, including: smoking, previous fracture, history of glucocorticoid therapy. Discussion: INCREASED RISK OF FRACTURE DUE TO HISTORY OF FRACTURE. The patient's previous fracture puts the patient at high risk of a future fracture. In untreated patients, the risk of osteoporotic fracture increases approximately two-fold for each 1.0 SD decrease in T-score. Low bone density is not the only risk factor for fracture; also consider factors such as patient's age, frailty or poor health, risk of falling, risk of injury, previous osteoporotic fracture, family history of osteoporosis, cigarette smoking, low body weight, etc. Not everyone with a low trauma fracture has osteoporosis; osteomalacia and other metabolic bone disorders should also be considered. Patients who have osteoporosis should be evaluated for specific diseases and conditions (secondary causes) that may cause or contribute to bone loss and fracture risk. National Osteoporosis Foundation (NOF) recommends pharmacologic intervention for patients with a prior hip or vertebral fracture regardless of BMD T-score. The patient should follow a healthful lifestyle (good nutrition with adequate calciu
== END 2023-06-03 07:50 | disposition home or self-care (01) ==
PROVIDERS: PCP Family Medicine; Visit Provider Family Medicine
DX: Z13.820 Encounter for screening for osteoporosis (principal); R29.890 Loss of height; Z78.0 Asymptomatic menopausal state; F17.210 Nicotine dependence, cigarettes, uncomplicated; Z92.241 Personal history of systemic steroid therapy; Z85.9 Personal history of malignant neoplasm, unspecified
CPT/HCPCS: 77080

== ENCOUNTER 2023-07-08 09:57 | Outpatient (CLI) | payer MEDICARE, SELFPAY ==
--- NOTE | ~2023-07-08 | XR_ITS ---
XR cervical spine 4-5V DATE: 07/08/2023 10:36 INDICATION: Chronic pain. No injury. TECHNIQUE: AP, open-mouth, lateral views COMPARISON: None FINDINGS: C1 and C2 are normally aligned and the odontoid process is intact. No fracture or dislocati on or locked facet or prevertebral soft tissue swelling is evident. Moderately severe degenerative disc disease at C5-6 and particularly C6-7. IMPRESSION: Moderately severe degenerative disease at C5-6 and particularly C6-7 Reviewed, dictated and finalized at location A. IMPRESSION: Moderately severe degenerative disease at C5-6 and particularly C6- 7
--- NOTE | ~2023-07-08 | XR_ITS ---
XR lumbar spine 2-3V DATE: 07/08/2023 10:36 INDICATION: Back pain. Radiculopathy. No injury. TECHNIQUE: AP, lateral, cone-down lateral lumbosacral views COMPARISON: 01/25/2017 lumbar spine FINDINGS: Osteopenia. Normal alignment of the lumbar spine. . The included lower thoracic and lumbar pedicles are intact. There is moderate degenerative disc disease at L3-4. There appears to be fusion at L5-S1, not definitely changed upon comparison with 01/25/2017. The sacroiliac joints are intact. There is extensive calcification of the abdominal aorta, without evidence of aneurysm. IMPRESSION: Fusion is suggested at the L5-S1 intervertebral disc space Moderately severe degenerative disc disease at L3-4 Osteopenia Reviewed, dictated and finalized at location A.
--- NOTE | ~2023-07-08 | XR_ITS ---
XR thoracic spine 3V DATE: 07/08/2023 10:36 INDICATION: Chronic pain. Radiculopathy. Clinical TECHNIQUE: AP, lateral, swimmer views COMPARISON: 01/25/2017 thoracic spine FINDINGS: Mild thoracic dextroscoliosis. There is [id number] degenerative spurring of the thoracic spine. No fracture or dislocation or bone destruction. The thoracic pedicles are intact. No paraspinal soft tissue thickening. IMPRESSION: Mild thoracic dextro scoliosis Minor degenerative spurring No fracture or bone destruction is evident Reviewed, dictated and finalized at location A.
== END 2023-07-08 09:58 | disposition home or self-care (01) ==
PROVIDERS: PCP Family Medicine; Visit Provider Pain Medicine Interventional Pain Medicine
DX: M47.22 Other spondylosis with radiculopathy, cervical region (principal); M47.23 Other spondylosis with radiculopathy, cervicothoracic region; F41.1 Generalized anxiety disorder; F33.1 Major depressive disorder, recurrent, moderate; J44.9 Chronic obstructive pulmonary disease, unspecified; G89.4 Chronic pain syndrome; M85.88 Other specified disorders of bone density and structure, other site; Z98.1 Arthrodesis status; M51.36 Other intervertebral disc degeneration, lumbar region; M50.323 Other cervical disc degeneration at C6-C7 level
CPT/HCPCS: 72050; 72072; 72100

== ENCOUNTER 2023-09-26 13:53 | Outpatient (CLI) | payer MEDICARE, SELFPAY ==
[2023-09-26 14:29] LABS: Anion Gap 12 mmol/L (4-12); Blood Urea Nitrogen 22 mg/dL (7-17); Calcium 9.1 mg/dL (8.4-10.2); Carbon Dioxide 22 mmol/L (22-30); Chloride 89 mmol/L (98-107); Estimated Glomerular Filt Rate 49; Glucose 99 mg/dL (65-110); Potassium 4.7 mmol/L (3.4-5.0); Sodium 123 mmol/L (137-145)
[2023-09-26 14:31] LABS: Appearance Urine Clear (Clear); Bacteria Urine None Seen /hpf; Bilirubin Urine Negative (Negative); Blood Urine Negative (Negative); Color Urine Yellow (Yellow); Glucose Urine UA Negative (Negative); Ketones Urine Negative (Negative); Leukocyte Esterase Ur Trace LEU/UL (Negative); Nitrate Urine Negative (Negative); Non Pathogenic Casts 0-2; Protein Urine Negative (Negative); RBC Urine 0-2 /hpf (0-2); Specific Grav Ur 1.012 (1.001-1.035); Squamous Epithelial Cell Urine None Seen /hpf (Few); Urobilinogen Urine 0.2 mg/dL (<2.0); pH Urine 5.5 (5.0-9.0)
[2023-09-26 14:34] LABS: Add Urine Microscopic? YES
== END 2023-09-26 13:54 | disposition home or self-care (01) ==
LOC: ANHLAB 13:56
PROVIDERS: PCP Family Medicine; Visit Provider Family Medicine
DX: N30.90 Cystitis, unspecified without hematuria (principal); E87.1 Hypo-osmolality and hyponatremia
CPT/HCPCS: 36415; 80048; 81001; 87086

== ENCOUNTER 2023-10-05 10:53 | Outpatient (CLI) | payer MEDICARE, SELFPAY ==
[2023-10-05 11:53] LABS: Anion Gap 11 mmol/L (4-12); Blood Urea Nitrogen 12 mg/dL (7-17); Calcium 9.4 mg/dL (8.4-10.2); Carbon Dioxide 22 mmol/L (22-30); Chloride 101 mmol/L (98-107); Estimated Glomerular Filt Rate 55; Glucose 107 mg/dL (65-110); Potassium 4.2 mmol/L (3.4-5.0); Sodium 134 mmol/L (137-145)
== END 2023-10-05 10:54 | disposition home or self-care (01) ==
LOC: ANHLAB 10:56
PROVIDERS: PCP Family Medicine; Visit Provider Family Medicine
DX: E87.1 Hypo-osmolality and hyponatremia (principal)
CPT/HCPCS: 36415; 80048

== ENCOUNTER 2023-10-27 07:21 | Outpatient (CLI) | payer MEDICARE, SELFPAY ==
[2023-10-27 08:05] LABS: Add Urine Microscopic? YES; Appearance Urine Cloudy (Clear); Bacteria Urine None Seen /hpf; Bilirubin Urine Negative (Negative); Blood Urine Negative (Negative); Color Urine Yellow (Yellow); Glucose Urine UA Negative (Negative); Ketones Urine Negative (Negative); Leukocyte Esterase Ur 2+ LEU/UL (Negative); Nitrate Urine Negative (Negative); Non Pathogenic Casts 0-2; Protein Urine Negative (Negative); RBC Urine 0-2 /hpf (0-2); Specific Grav Ur 1.012 (1.001-1.035); Squamous Epithelial Cell Urine Occasional /hpf (Few); WBC Urine 21-50 /hpf (0-3)
[2023-10-27 08:17] LABS: Anion Gap 10 mmol/L (4-12); Blood Urea Nitrogen 13 mg/dL (7-17); Calcium 8.8 mg/dL (8.4-10.2); Carbon Dioxide 24 mmol/L (22-30); Chloride 103 mmol/L (98-107); Estimated Glomerular Filt Rate > 60; Glucose 94 mg/dL (65-110); Sodium 137 mmol/L (137-145)
== END 2023-10-27 07:22 | disposition home or self-care (01) ==
PROVIDERS: PCP Family Medicine; Visit Provider Family Medicine
DX: N30.90 Cystitis, unspecified without hematuria (principal); E87.1 Hypo-osmolality and hyponatremia; Z79.899 Other long term (current) drug therapy
CPT/HCPCS: 36415; 80048; 81001; 87086

== ENCOUNTER 2023-11-13 08:17 | Outpatient (CLI) | payer MEDICARE, SELFPAY ==
[2023-11-13 08:41] LABS: Add Urine Microscopic? YES; Appearance Urine Clear (Clear); Bacteria Urine Rare /hpf; Bilirubin Urine Negative (Negative); Blood Urine Negative (Negative); Color Urine Yellow (Yellow); Glucose Urine UA Negative (Negative); Ketones Urine Negative (Negative); Leukocyte Esterase Ur 3+ LEU/UL (Negative); Nitrate Urine Negative (Negative); Non Pathogenic Casts 0-2; Protein Urine Negative (Negative); RBC Urine 0-2 /hpf (0-2); Specific Grav Ur 1.008 (1.001-1.035); Squamous Epithelial Cell Urine Occasional /hpf (Few); Urobilinogen Urine 0.2 mg/dL (<2.0); WBC Urine 51-100 /hpf (0-3); pH Urine 6.5 (5.0-9.0)
[2023-11-13 08:52] LABS: Anion Gap 7 mmol/L (4-12); Blood Urea Nitrogen 14 mg/dL (7-17); Calcium 9.2 mg/dL (8.4-10.2); Carbon Dioxide 29 mmol/L (22-30); Chloride 101 mmol/L (98-107); Estimated Glomerular Filt Rate > 60; Glucose 116 mg/dL (65-110); Sodium 137 mmol/L (137-145)
== END 2023-11-13 08:18 | disposition home or self-care (01) ==
LOC: ANHLAB 08:22
PROVIDERS: PCP Family Medicine; Visit Provider Family Medicine
DX: E87.1 Hypo-osmolality and hyponatremia (principal); D72.829 Elevated white blood cell count, unspecified; N30.90 Cystitis, unspecified without hematuria; Z79.899 Other long term (current) drug therapy
CPT/HCPCS: 36415; 80048; 81001; 83036; 87086

== ENCOUNTER 2023-12-12 11:14 | Outpatient (CLI) | payer MEDICARE, SELFPAY ==
[2023-12-12 11:44] LABS: Hematocrit 39.5 % (37.0-47.0); Hemoglobin 12.7 g/dL (12.0-15.0); Mean Corpuscular HGB Conc 32.2 g/dl (32-36); Mean Corpuscular Hemoglobin 28.4 pg (26-34); Mean Corpuscular Volume 88.4 fl (80-100); Mean Platelet Volume 10.3 fl (7.4-10.4); Platelet Count Result 450 k/mm3 (150-375); Red Blood Count 4.47 M/mm3 (4.2-5.4); Red Cell Distribution Width 15.5 % (11.5-14.5); White Blood Count 17.1 K/mm3 (4.5-10.0)
[2023-12-12 12:06] LABS: Alanine Aminotransferase 11 U/L (6-35); Albumin Level 4.5 g/dL (3.5-5.1); Alkaline Phosphatase 84 U/L (38-126); Anion Gap 11 mmol/L (4-12); Aspartate Amino Transferase 23 U/L (14-36); Bilirubin,Total 0.4 mg/dL (0.2-1.3); Blood Urea Nitrogen 19 mg/dL (7-17); Calcium 9.5 mg/dL (8.4-10.2); Carbon Dioxide 24 mmol/L (22-30); Chloride 99 mmol/L (98-107); Estimated Glomerular Filt Rate > 60; Glucose 102 mg/dL (65-110); Potassium 4.4 mmol/L (3.4-5.0); Sodium 134 mmol/L (137-145)
[2023-12-12 12:20] LABS: Add Urine Microscopic? YES; Appearance Urine Clear (Clear); Bacteria Urine None Seen /hpf; Bilirubin Urine Negative (Negative); Blood Urine Negative (Negative); Color Urine Yellow (Yellow); Glucose Urine UA Negative (Negative); Ketones Urine Negative (Negative); Leukocyte Esterase Ur Trace LEU/UL (Negative); Nitrate Urine Negative (Negative); Non Pathogenic Casts 0-2; Protein Urine Negative (Negative); RBC Urine 0-2 /hpf (0-2); Specific Grav Ur 1.007 (1.001-1.035); Squamous Epithelial Cell Urine None Seen /hpf (Few); Urobilinogen Urine 0.2 mg/dL (<2.0); WBC Urine 0-5 /hpf (0-3); pH Urine 5.5 (5.0-9.0)
== END 2023-12-12 11:15 | disposition home or self-care (01) ==
LOC: ANHLAB 11:17
PROVIDERS: PCP Family Medicine; Visit Provider Family Medicine
DX: N30.90 Cystitis, unspecified without hematuria (principal); Z79.899 Other long term (current) drug therapy; D75.1 Secondary polycythemia; E87.1 Hypo-osmolality and hyponatremia; I10 Essential (primary) hypertension; K21.9 Gastro-esophageal reflux disease without esophagitis; R91.8 Other nonspecific abnormal finding of lung field
CPT/HCPCS: 36415; 80053; 81001; 85027; 87086

== ENCOUNTER 2024-01-11 07:53 | Outpatient (CLI) | payer MEDICARE, SELFPAY | END 2024-01-11 07:54 | disposition home or self-care (01) | PROVIDERS: PCP Family Medicine; Visit Provider Family Medicine | DX: N30.90 Cystitis, unspecified without hematuria (principal); Z79.899 Other long term (current) drug therapy | CPT/HCPCS: 87086 ==

== ENCOUNTER 2024-03-26 15:05 | Outpatient (CLI) | payer MEDICARE, SELFPAY ==
--- OUTSIDE RECORDS SUMMARY | 2024-03-26 15:35 | XMS_ITS | Encounter Summary ---
Author Organization [facility] Address [address], [place] [address] Phone Care Team Providers Care Assistant Warehouse Manager Name Role Phone Tito Hoyos MD Primary Care Provider [phone] Reason for Visit * Reason Comments Med Refill Encounter Details Date Type Department Care Team (Late st Contact Info) Description 11/29/2019 Refill [facility] Nephrology and Hypertension [address] [place] [address], [address] [place], [place] [id number] Lisette Cao MD [address], [address] [place] [address] Social History Tobacco Use Types Packs/Day Years Used Date Smoking Tobacco: Every Day Smokeless Tobacco: Never Comments:Smoking History Pac ks/day: 1 pack a day Alcohol Use Standard Drinks/Week Comments No 0 (1 standard drink = 0.6 oz pur e alcohol) Sex and Gender Information Value Date Recorded Sex Assigned at Not on file Gender Identity Not on file Sexual Orientation Not on file documented as of this encounter Plan of Treatment Not on file documented as of this encounter Visit Diagnoses Not on filedocumented in this encounter Care Teams Assistant Warehouse Manager Relationship Specialty Start Date End Date Tito Hoyos MD [address] [place] [address] PCP - General Family Medicine 12/05/18 documented as of this encounter
--- OUTSIDE RECORDS SUMMARY | 2024-03-26 15:35 | XMS_ITS | Encounter Summary ---
Author Organization [facility] Address [address] [place] [address] Phone Care Team Providers Care Manufacturing Production Technician Name Role Phone Tito Hoyos MD Primary Care Provider [phone] Reason for Visit * Reason Comments Med Refill Encounter Details Date Type Department Care Team (Late st Contact Info) Description 06/28/2018 Refill [facility] Nephrology and Hypertension [facility], [place] [address] Lisette Cao MD [facility] [place] [place], [address] [place] [id number] Social History Tobacco Use Types Packs/Day Years [...] on filedocumented in this encounter Care Teams Manufacturing Production Technician Relationship Specialty Start Date End Date Tito Hoyos MD [address] [place] [address] PCP - General Family Medicine 12/05/18 documented as of this encounter
--- OUTSIDE RECORDS SUMMARY | 2024-03-26 15:35 | XMS_ITS | Clinical Summary ---
Author Organization [facility] Address [address] [place] [address] Phone Care Team Providers Care Extension Service Specialist Name Role Phone Farhad Marshall MD Primary Care Provider [phone] Rupal Taveras APRN, TELEPHONE ADVICE NURSE Unavailable [phone] Allergies Active Allergy Reactions Criticality Noted Date Comments Amoxicillin Unknown 12/29/2022 Cashew Nut (Anacardium Occid entale) Skin Test Unknown 12/29/2022 Citalopram Unknown 12/29/2022 Dexamethasone Unknown 12/29/2022 Ibuprofen Unknown 12/29/2022 Loratadine Unknown 12/29/2022 Peanut (Diagnostic) Unknown 12/29/2022 Penicillins Unknown 12/29/2022 Prednisone Unknown 12/29/2022 Pregabalin Unknown 12/29/2022 Varenicline Tartrate Hives 12/29/2022 Medications Topiramate 50 MG Tablet Take 50 mg by mouth 2 times daily. Active Metoprolol Succinate 50 MG Capsule ER 24 Hour Sprinkle Take by mouth. A ctive tiotropium (Spiriva HandiHaler) 18 MCG Capsule take 1 Puff by inhalation daily. Active furosemide (LASIX) 20 MG Tablet Take 20 mg by mouth daily. Active lisinopril (PRINIVIL, ZESTRIL) 20 MG Tablet Take 20 mg by mouth daily. Active aspirin 325 MG Tablet Take 325 mg by mouth daily. Active pantoprazole (PROTONIX) 40 MG Tablet Delayed Response Take 40 mg by mouth daily. Active montelukast (SINGULAIR) 10 MG Tablet Take 10 mg by mouth every evening. Active sodium chloride 1 GM Tablet Take 1 g by mouth daily. Active ALBUTEROL IN take by inhalation. Active HYDROcodone-magda taminophen (NORCO) 10-325 MG Tablet Take 1 Tablet by mouth every 6 hours as needed. Active ALPRAZolam (XANAX) 1 MG Tablet Take 1 mg by mouth 3 times daily. Active Family History Medical History Relation Name Comments Diabetes Father Diabetes Mother Relation Name Status Comments Father Mother Social History Tobacco Use Types Packs/Day Years Used Date Smoking Tobacco: Every Day Cigarettes 0.3 40 Smokeless Tobacco: Never Tobacco Cessation:Ready to Q uit: Yes Comments:6 daily Alcohol Use Standard Drinks/Week Comments Never 0 (1 standard drink = 0.6 oz pur e alcohol) Comments Unknown Sex and Gender Information Value Date Recorded Sex Assigned at Not on file Legal Sex Female 9:13 AM CDT Gender Identity Not on file Sexual Orientation Not on file Last Filed Vital Signs Vital Sign Reading Time Taken Comments Blood Pressure 120/74 04/17/2023 9:28 AM BUNGY JUMP MASTER Pulse 91 04/17/2023 9:28 AM BUNGY JUMP MASTER Temperature 36.4 ??C (97.6 ??F) 04/17/2023 9:28 AM CS T Respiratory Rate 18 04/17/2023 9:28 AM BUNGY JUMP MASTER Oxygen Saturation 96% 04/17/2023 9:28 AM BUNGY JUMP MASTER Inhaled Oxygen Concentration - - Weight 82.7 kg (182 lb 6.4 oz) 04/17/2023 9:28 A M BUNGY JUMP MASTER Height 154.9 cm (5' 1 ) 04/17/2023 9:28 AM BUNGY JUMP MASTER Body Mass Index 34.46 04/17/2023 9:28 AM BUNGY JUMP MASTER Plan of Treatment Health Maintenance Due Date Last Done Comments DEXA Bone Density 1955 Hepatitis C Virus (HCV) Screening 1955 Colonoscopy 05/19/1999 Colorectal Cancer Screening 05/19/1999 Cologuard 2004 Immunochemical Fecal Occult Blood 2004 Mammogram 2004 Pneumococcal Immunization (50+ years) (2 of 2 - PPSV23) 01/04/2016 11/09/2015 Zoster Immunization (2 of 2) 12/22/2022 10/27/2022 Influenza Immunization (#1) 2023 SARS-COV-2 Immunization ( season) 2023 11/20/2021, 06/11/2021, 12/07/2020, Additional history exists Respiratory Syncytial Virus (RSV) Immunization (Adult) (1 - 1-dose 75+ series) 2029 DTaP/Tdap/Td Immunization Discontinued 09/01/2022, 02/2010 TdaP Immunization Completed 09/01/2022 Hepatitis B Immunization Aged Out No longer eligible based on patient's age to complete this topic Meningococcal Immunization (ACWY) Aged Out No longer eligible based on patient's age to complete this topic Rotavirus Immunization Aged Out No lo nger eligible based on patient's age to complete this topic Insurance MEDICARE C [employer] Care Teams Extension Service Specialist Relationship Specialty Start Date End Date Farhad Marshall MD PCP - General Family Medicine 12/22/22 Rupal Taveras APRN, TELEPHONE ADVICE NURSE [address] [place] [address] Nurse Practitioner Advanced Practice Nurse 12/22/22
--- OUTSIDE RECORDS SUMMARY | 2024-03-26 15:35 | XMS_ITS | Clinical Summary ---
Author Organization [facility] Address [address], [place] [address] Phone Care Team Providers Care Trailer Mechanic Name Role Phone Tito Hoyos MD Primary Care Provider [phone] Allergies Active Allergy Reactions Criticality Noted Date Comments Dexamethasone Ibuprofen Penicillins Prednisone Pregabalin Varenicline Medications Medication Sig Dispensed Refills Start Date End Date Status atorvastatin (LIPITOR) 20 MG tablet 1 tab/cap qday 0 11/09/2015 Active aspirin 325 MG EC tablet 1 tab/cap qday 0 11/09/2015 Active albuterol HFA (PROAIR HFA) 108 (90 Base) MCG/ACT inhaler 2 puffs q 4 - 6hr PRN 0 11/09/2015 Active montelukast (SINGULAIR) 10 MG tablet 1 tab/cap qday 0 11/09/2015 Active ALPRAZolam (XANAX) 1 MG tablet 1 tab/cap qid 0 11/09/2015 Active sodium chloride 1 g tablet 1 tab/cap tid 0 11/09/2015 Active lisinopril (PRINIVIL,ZESTRIL) 10 MG tablet TAKE 1 TABLET BY MOUTH EVERY DAY 30 tablet 06/13/2018 Active raNITIdine (ZANTAC) 150 MG capsule 1 09/26/2018 Active carisoprodol (SOMA) 350 MG tablet TK 1 T PO TID 08/12/2019 Active famotidine (PEPCID) 40 MG tablet TK 1 T PO D 07/05/2019 Active HYDROcodone-acetamino phen (LORCET PLUS) 10-325 MG per tablet TK 1 T PO Q 4 H PRN P 08/12/2019 Active metoprolol tartrate (LOPRESSOR) 50 MG tablet TK 1 T PO Q 12 H 06/03/2019 Active furosemide (LASIX) 20 MG tablet TAKE 1 TABLET(20 MG) BY MOUTH TWICE DAILY 30 tablet 03/19/2021 Active Active Problems Problem Noted Date Diagnosed Date Chronic back pain 12/05/2018 Diabetes mellitus 12/05/2018 Hyponatremia 12/05/2018 Obesity 12/05/2018 Thyroid nodule 12/05/2018 Other fatigue 02/01/2017 Smoker 05/10/2016 Mixed anxiety and depressive disorder 03/07/2016 Hypo-osmolality and hyponatremia 11/09/2015 Chronic obstructive pulmonary disease 11/09/2015 Essential (primary) hypertension 11/09/2015 Other depressive episodes 11/09/2015 Overview (05/12/2018): Converted unresolved ICD9, potential mismatch. Gastro-esophageal reflux disease without esophag itis 11/09/2015 Fibromyalgia 11/09/2015 Other hyperlipidemia 11/09/2015 Overview (05/12/2018): Converted unresolved ICD9, potential mismatch. Other intervertebral disc degeneration of lumbar region 11/09/2015 Type 2 diabetes mellitus without complication Immunizations Name Administration Dates Next Due DTaP, Unspecified 02/27/2010 Pneumococcal Conjugate 13-Valent 11/09/2015 Family History Medical History Relation Comments Coronary arteriosclerosis Father Hypertensive disorder Father Cerebrovascular accident Mother Coronary arteriosclerosis Mother Diabetes mellitus Mother Hypertensive disorder Mother Coronary arteriosclerosis Sibling Hypertensive disorder Sibling Kidney disease Neg Hx Kidney stone Neg Hx Relation Status Comments Father Mother Sibling Social History Tobacco Use Types Packs/Day Years Used Date Smoking Tobacco: Every Day Smokeless Tobacco: Never Tobacco Cessation:Ready to Q uit: No; Counseling Given: Yes Comments:Smoking History Packs/day: 1 pack a day Alcohol Use Standard Drinks/Week Comments No 0 (1 standard drink = 0.6 oz pur e alcohol) Sex and Gender Information Value Date Recorded Sex Assigned at Not on file Gender Identity Not on file Sexual Orientation Not on file Last Filed Vital Signs Vital Sign Reading Time Taken Comments Blood Pressure 136/78 08/26/2019 11:28 AM CDT Pulse - - Temperature 36 ??C (96.8 ??F) 08/26/2019 11:28 AM CDT Respiratory Rate 18 08/26/2019 11:28 AM CDT Oxygen Saturation - - Inhaled Oxygen Concentration - - Weight 81.2 kg (179 lb) 08/26/2019 11:28 AM CDT Height 157.5 cm (5' 2 ) 08/26/2019 11:28 AM CDT Body Mass Index 32.74 08/26/2019 11:28 AM CDT Plan of Treatment Health Maintenance Due Date Last Done Comments Pneumococcal PPSV23/PCV13 65 + Years / Low and Medium Risk (2 of 3 - PPSV23 or PCV20) 05/19/2019 11/09/2015 Influenza Vaccine (#1) 2023 Advance Directives For more information, please contact: [phone] (Available ) Documents on File Type Date Recorded Patient Hand Ii Tube Bender Expl anation Power of Metal Patternmaker Apprentice 06/16/2018 3:03 PM Ely [email or web address] Care Teams Trailer Mechanic Relationship Specialty Start Date End Date Tito Hoyos MD [address] [place] [address] PCP - General Family Medicine 12/05/18
--- OUTSIDE RECORDS SUMMARY | 2024-03-26 15:35 | XMS_ITS | Encounter Summary ---
Author Organization [facility] Address [address], [place] [address] Phone Care Team Providers Care Pharmacy Picking Tech Name Role Phone Tito Hoyos MD Primary Care Provider [phone] Reason for Visit * Reason Comments Med Refill Encounter Details Date Type Department Care Team (Late st Contact Info) Description 03/18/2021 Refill [facility] Nephrology and Hypertension [address] [place] [address], [address] [place], [place] [id number] Lisette Cao MD [address] [facility], [address] [place] [address] Social History Tobacco Use Types Packs/Day Years [...] on filedocumented in this encounter Care Teams Pharmacy Picking Tech Relationship Specialty Start Date End Date Tito Hoyos MD [address] [place] [address] PCP - General Family Medicine 12/05/18 documented as of this encounter
--- OUTSIDE RECORDS SUMMARY | 2024-03-26 15:35 | XMS_ITS | Continuity of Care Document ---
Author Organization [facility] Address [address] [facility] [address] [place] [address] Phone Care Team Providers Care Flue Dust Laborer Name Role Phone Birch OD, Turner Unavailable Unavailable Procedures Procedure Date Eye Exam & Treatment Refraction Advance Directives Directive Yes / No Effective Date File Name No Information Encounters Encounter Description Practice Location Reason(s) For Visit Diagnoses Date Provider Providers Copied on Encounter Formerly [facility], [address], [place], [place], [id number], [place] tel:[phone] [facility] No Information [phone] Birch OD Turner. [address] , [address], [place], [address], [place]. tel:[phone] Family History Family Member Type Diagnosis Age At Onset No Information Payers Payer name Insurance type Covered libertarian ID Authoriza tion(s) Medicare [facility] [id number] Social History Type Description Quantity Date Captured [...]
--- OUTSIDE RECORDS SUMMARY | 2024-03-26 15:35 | XMS_ITS | Encounter Summary ---
Author Organization [facility] Address [address], [place] [address] Phone Care Team Providers Care Senior Ui Developer Name Role Phone Tito Hoyos MD Primary Care Provider [phone] Reason for Visit * Reason Comments Med Refill Encounter Details Date Type Department Care Team (Late st Contact Info) Description 06/13/2018 Refill [facility] Nephrology and Hypertension [address] [place] [address], [address] [place], [place] [id number] Lisette Cao MD [address] [facility], [address] [place] [address] Social History Tobacco Use Types Packs/Day Years [...] on filedocumented in this encounter Care Teams Senior Ui Developer Relationship Specialty Start Date End Date Tito Hoyos MD [address] [place] [address] PCP - General Family Medicine 12/05/18 documented as of this encounter
--- OUTSIDE RECORDS SUMMARY | 2024-03-26 15:35 | XMS_ITS | Clinical Summary ---
Author Organization [facility] Address [address] [place] [address] Care Team Providers Care Painting Supervisor Name Role Phone Farhad Marshall MD Primary Care Provider [phone] Allergies Active Allergy Reactions Criticality Noted Date Comments Cashew Nut Other (See Comments) 03/19/2024 Allergy skin test Citalopram Rash,Nausea and Vomiting Low 12/29/2022 Dexamethasone Rash,Nausea and Vomiting Low 12/30/19 Ibuprofen Rash,Nausea and Vomiting Low 12/29/2022 Loratadine Rash,Nausea and Vomiting Low 12/29/2022 Peanut Other (See Comments) 03/19/2024 Allergy skin test Penicillins Rash,Nausea and Vomiting Low 12/29/2022 Pregabalin Rash,Nausea and Vomiting Low 12/29/2022 Varenicline Hives High 12/29/2022 Medications metoprolol tartrate (LOPRESSOR) 50 mg tablet Take 50 mg by mouth 2 times daily. Active furosemide (LASIX) 20 mg tablet Take 20 mg by mouth daily. Active lisinopriL (PRINIVIL) 20 mg tablet Take 20 mg by mouth daily. Active aspirin (ECOTRIN EC) 325 mg Tablet, Delayed Release (E.C.) Take 325 mg by mouth daily. Active pantoprazole (PROTONIX) 40 mg Tablet, Delayed Release (E.C.) Take 40 mg by mouth daily. Active montelukast (SINGULAIR) 10 mg tablet Take 10 mg by mouth daily at bedtime. Active sodium chloride for inhalation (SODIUM CHLORIDE INHALATION) Take by inhalation. Active HYDROcodone-acet aminophen (NORCO) 10-325 mg Tablet Take 1 Tablet by mouth every 4 hours as needed for Pain, Moderate. Active ALPRAZolam (XANAX XR) 1 mg Extended Release 24 hour tablet Take 1 mg by mouth daily. Active atorvastatin (LIPITOR) 20 mg tablet Take 20 mg by mouth daily. Active topiramate (TOPAMAX) 100 mg tablet Take 100 mg by mouth 2 times daily. Active Active Problems No known active problems Encounters Date Type Department Care Team Description 03/21/2024 External Device Data STL ABSTRACTION Provider, Abstract 03/19/2024 1:30 PM DRAWER FITTER Office Visit [facility] Oncology and Hematology [place] [address] [place] [address] Eric Ricardo MD Leukocytosis, unspecified type (Primary Dx) from Last 3 Months Family History Medical History Relation Name Comments Cancer - Other Brother 1 Heart Disease Brother 1 Heart Disease Brother 2 Heart Disease Brother 3 Heart Disease Child Heart Disease Father Diabetes Mother Heart Disease Mother Relation Name Status Comments Brother 1 Brother 2 Brother 3 Alive Child Alive Father Mother Social History Tobacco Use Types Packs/Day Years Used Date Smoking Tobacco: Every Day Cigarettes 0.5 43 Smokeless Tobacco: Never Comments:On and off have danni t for years and months during the last 43 yrs of smoking Alcohol Use Standard Drinks/Week Comments Never 0 (1 standard drink = 0.6 oz pur e alcohol) Comments Unknown Sex and Gender Information Value Date Recorded Sex Assigned at Not on file Legal Sex Female 12:27 PM DRAWER FITTER Gender Identity Not on file Sexual Orientation Not on file Last Filed Vital Signs Vital Sign Reading Time Taken Comments Blood Pressure 121/81 03/19/2024 1:59 PM DRAWER FITTER Pulse 102 03/19/2024 1:59 PM DRAWER FITTER Temperature 36.8 ??C (98.3 ??F) 03/19/2024 1:59 PM CS T Respiratory Rate - - Oxygen Saturation 95% 03/19/2024 1:59 PM DRAWER FITTER Inhaled Oxygen Concentration - - Weight 71.2 kg (157 lb) 03/19/2024 1:59 PM DRAWER FITTER Height 154.9 cm (5' 1 ) 03/19/2024 1:59 PM DRAWER FITTER Body Mass Index 29.66 03/19/2024 1:59 PM DRAWER FITTER Plan of Treatment Upcoming Encounters Date Type Department Care Team (Late st Contact Info) Description 04/17/2024 10:00 AM DRAWER FITTER Office Visit [facility] Oncology and Hematology - [place] [address] [facility] [address] [place] [address] Eric Ricardo MD [address] [facility] [address] [place] [address] Health Maintenance Due Date Last Done Comments DIABETES ANNUAL FOOT EXAM 1972 DIABETES ANNUAL RETINAL EXAM 1972 DIABETES HBA1C Q 6 MONTHS 1972 DIABETES MICROALBUMIN ANNUAL SCREEN 1972 LDL CHOLESTEROL ANNUAL 1972 BREAST CANCER SCREENING 1994 COLORECTAL SCREENING 05/19/1999 Colorectal Cancer Screening 05/19/1999 FIT-DNA Q 3 years 05/19/1999 FIT/FOBT Q 1 year 05/19/1999 Flex Sig/CT Colonography Q 5 years 05/19/1999 Lung Cancer Screening 2004 ZOSTER VACCINE (1 of 2) 2004 DTAP/TDAP/TD VACCINES (1 - Tdap) 02/28/2010 02/27/19 11 RSV VACCINE (60+ or ) (1 - Risk 60-74 years 1-dose series) 2014 PNEUMOCOCCAL VACCINE 65+ YEARS (2 of 2 - PPSV23) 01/0311/09/2015 OSTEOPOROSIS SCREENING 05/19/2019 INFLUENZA VACCINE (#1) 2023 [place] Prev entative Visit/Annual Wellness Visit 02/28/2024 Insurance [facility] [address] [facility] Care Teams Painting Supervisor Relationship Specialty Start Date End Date Farhad Marshall MD [address] [place] [address] PCP - General Family Practice 01/19/24
--- OUTSIDE RECORDS SUMMARY | 2024-03-26 15:35 | XMS_ITS | Encounter Summary ---
Author Organization [facility] Address [address] [address] Phone Care Team Providers Care Leadership Program Associate Name Role Phone Tito Hoyos MD Primary Care Provider [phone] Reason for Visit * Reason Comments Med Refill Encounter Details Date Type Department Care Team (Late st Contact Info) Description 03/18/2021 Refill [facility] Nephrology and Hypertension [address] [place] [address], [address] [place], [place] [id number] Lisette Cao MD [address] [facility], [address] [place] [address] Social History Tobacco Use Types Packs/Day Years [...] on filedocumented in this encounter Care Teams Leadership Program Associate Relationship Specialty Start Date End Date Tito Hoyos MD [address] [place] [address] PCP - General Family Medicine 12/05/18 documented as of this encounter
--- OUTSIDE RECORDS SUMMARY | 2024-03-26 15:35 | XMS_ITS | Encounter Summary ---
Author Organization [facility] Address [address], [place] [address] Phone Care Team Providers Care Balancer Scale Name Role Phone Tito Hyoos MD Primary Care Provider [phone] Reason for Visit * Reason Comments Med Refill Encounter Details Date Type Department Care Team (Late st Contact Info) Description 12/26/2020 Refill [facility] Nephrology and Hypertension [address] [place] [address], [address] [place], [place] [phone] Lisette Cao MD [address] [facility], [address] [place] [address] Social History Tobacco Use Types Packs/Day Years [...] on filedocumented in this encounter Care Teams Balancer Scale Relationship Specialty Start Date End Date Tito Hoyos MD [address] [place] [address] PCP - General Family Medicine 12/05/18 documented as of this encounter
--- OUTSIDE RECORDS SUMMARY | 2024-03-26 15:35 | XMS_ITS | Encounter Summary ---
Author Organization [facility] Address [address] [address] Phone Care Team Providers Care Remote Medical Coder Name Role Phone Tito Hoyos MD Primary Care Provider [phone] Reason for Visit * Reason Comments Med Refill Encounter Details Date Type Department Care Team (Late st Contact Info) Description 07/18/2018 Refill [facility] Nephrology and Hypertension [address] [place] [address], [address] [place], [place] [phone] Lisette Cao MD [address] [facility], [address] [place] [address] Social History Tobacco Use Types Packs/Day Years [...] on filedocumented in this encounter Care Teams Remote Medical Coder Relationship Specialty Start Date End Date Tito Hoyos MD [address] [place] [address] PCP - General Family Medicine 12/05/18 documented as of this encounter
--- OUTSIDE RECORDS SUMMARY | 2024-03-26 15:35 | XMS_ITS | Encounter Summary ---
Author Organization [facility] Address [address] [place] [address] Phone Care Team Providers Care Hunter Skin Diver Name Role Phone Tito Hoyos MD Primary Care Provider [phone] Reason for Visit * Reason Comments Med Refill Encounter Details Date Type Department Care Team (Late st Contact Info) Description 06/29/2018 Refill [facility]pert[facility], [place] [address] Lisette Cao MD [facility], [address] [place] [address] Social History Tobacco Use Types Packs/Day Years [...] on filedocumented in this encounter Care Teams Hunter Skin Diver Relationship Specialty Start Date End Date Tito Hoyos MD [address] [place] [address] PCP - General Family Medicine 12/05/18 documented as of this encounter
--- OUTSIDE RECORDS SUMMARY | 2024-03-26 15:35 | XMS_ITS | Encounter Summary ---
Author Organization [facility] Address [address], [place] [address] Phone Care Team Providers Care Edger Tailer Name Role Phone Tito Hoyos MD Primary Care Provider [phone] Reason for Visit * Reason Comments Med Refill Encounter Details Date Type Department Care Team (Late st Contact Info) Description 07/05/2021 Refill [facility] Nephrology and Hypertension [address] [place] [address], [address] [place], [place] [phone] Lisette Cao MD [address] [facility], [address] [place] [address] Social History Tobacco Use Types Packs/Day Years [...] on filedocumented in this encounter Care Teams Edger Tailer Relationship Specialty Start Date End Date Tito Hoyos MD [address] [place] [address] PCP - General Family Medicine 12/05/18 documented as of this encounter
[2024-03-26 16:13] LABS: Basophils Absolute Auto 0.1 K/mm3 (0.0-0.1); Basophils Percent Auto 0.4 % (0.2-1.2); Eosinophils Absolute Auto 0.1 K/mm3 (0-0.3); Hematocrit 40.1 % (37.0-47.0); Hemoglobin 12.5 g/dL (12.0-15.0); Immature Granulocyte Absolute 0.03 K/mm3 (0.00-0.031); Immature Granulocyte Percent A 0.2 % (0-0.5); Lymphocytes Absolute Auto 3.84 K/mm3 (0.9-3.2); Lymphocytes Percent Auto 30.5 % (18.3-44.2); Mean Corpuscular HGB Conc 31.2 g/dl (32-36); Mean Corpuscular Hemoglobin 27.1 pg (26-34); Mean Platelet Volume 10.5 fl (7.4-10.4); Monocytes Absolute Auto 1.1 K/mm3 (0.1-0.6); Monocytes Percent Auto 8.5 % (2.6-8.5); Neutrophils Absolute Auto 7.5 K/mm3 (1.3-6.7); Neutrophils Percent Auto 59.4 % (45.5-73.1); Platelet Count Result 465 k/mm3 (150-375); Red Blood Count 4.61 M/mm3 (4.2-5.4); Red Cell Distribution Width 15.2 % (11.5-14.5); White Blood Count 12.6 K/mm3 (4.5-10.0)
[2024-03-26 17:14] LABS: Alanine Aminotransferase 14 U/L (6-35); Albumin Level 4.3 g/dL (3.5-5.1); Alkaline Phosphatase 82 U/L (38-126); Anion Gap 10 mmol/L (4-12); Aspartate Amino Transferase 23 U/L (14-36); Bilirubin,Total 0.3 mg/dL (0.2-1.3); Blood Urea Nitrogen 19 mg/dL (7-17); CRP < 0.5 mg/dL (<1.0); Calcium 9.8 mg/dL (8.4-10.2); Carbon Dioxide 24 mmol/L (22-30); Chloride 105 mmol/L (98-107); Estimated Glomerular Filt Rate > 60; Glucose 128 mg/dL (65-110); Potassium 4.4 mmol/L (3.4-5.0); Sodium 139 mmol/L (137-145)
[2024-03-26 17:19] LABS: Erythrocyte Sedimentation Rate 16 mm/hr (0-20)
== END 2024-03-26 15:06 | disposition home or self-care (01) ==
PROVIDERS: PCP Family Medicine; Visit Provider Internal Medicine Hematology & Oncology
DX: D72.829 Elevated white blood cell count, unspecified (principal)
CPT/HCPCS: 36415; 80053; 85025; 85652; 86140; 88184

== ENCOUNTER 2024-05-09 13:52 | Outpatient (CLI) | payer MEDICARE, SELFPAY ==
--- NOTE | ~2024-05-09 | MM_ITS ---
EXAMINATION: MM screening [facility] BI w jaylon HISTORY: Screening mammogram TECHNIQUE: Craniocaudal and mediolateral oblique 3-D tomosynthesis images were obtained and synthetic 2-D images were generated. CAD analysis was submitted and interpreted. COMPARISON: 04/06/2023, 03/04/2022, 10/27/2020 BREAST PARENCHYMAL COMPOSITION:Not Dense. There are scattered areas of fibroglandular density. FINDINGS: No suspicious mass, calcification, or architectural distortion are identified in either susanne ast to suggest malignancy. There has been no suspicious interval change. IMPRESSION: No mammographic evidence of malignancy. Recommend routine screening mammography in one year. BI-RADS Category 1: Negative Reviewed, dictated and finalized at location .
--- OUTSIDE RECORDS SUMMARY | 2024-05-09 15:42 | XMS_ITS | Encounter Summary ---
Author Organization [facility] Address [address], [place] [address] Phone Care Team Providers Care Rcis Name Role Phone Tito Hoyos MD Primary Care Provider [phone] Reason for Visit * Reason Comments Med Refill Encounter Details Date Type Department Care Team (Late st Contact Info) Description 06/13/2018 Refill [facility] Nephrology and Hypertension [address] [place] [address], [address] [place], [place] [phone] Lisette Cao MD [address] [facility], [address] [place] [address] Social History Tobacco Use Types Packs/Day Years [...] on filedocumented in this encounter Care Teams Rcis Relationship Specialty Start Date End Date Tito Hoyos MD [address] [place] [address] PCP - General Family Medicine 12/05/18 documented as of this encounter
--- OUTSIDE RECORDS SUMMARY | 2024-05-09 15:42 | XMS_ITS | Encounter Summary ---
Author Organization [facility] Address [address] [place] [address] Phone Care Team Providers Care Signaling Project Engineer Name Role Phone Tito Hoyos MD Primary Care Provider [phone] Reason for Visit * Reason Comments Med Refill Encounter Details Date Type Department Care Team (Late st Contact Info) Description 06/29/2018 Refill [facility] Nephrology and Hypertension [facility], [place] [address] Lisette Cao MD [facility], [address] [place] [address] Social History Tobacco Use Types Packs/Day Years [...] on filedocumented in this encounter Care Teams Signaling Project Engineer Relationship Specialty Start Date End Date Tito Hoyos MD [address] [place] [address] PCP - General Family Medicine 12/05/18 documented as of this encounter
--- OUTSIDE RECORDS SUMMARY | 2024-05-09 15:42 | XMS_ITS | Encounter Summary ---
Author Organization [facility] Address [address], [place] [address] Phone Care Team Providers Care Band Booker Name Role Phone Tito Hoyos MD Primary Care Provider [phone] Reason for Visit * Reason Comments Med Refill Encounter Details Date Type Department Care Team (Late st Contact Info) Description 03/18/2021 Refill [facility] Nephrology and Hypertension [address] [place] [address], [address] [place], [place] [id number] Lisette Cao MD [address] [facility], [address] [place] [address] Social History Tobacco Use Types Packs/Day Years [...] on filedocumented in this encounter Care Teams Band Booker Relationship Specialty Start Date End Date Tito Hoyos MD [address] [place] [address] PCP - General Family Medicine 12/05/18 documented as of this encounter
--- OUTSIDE RECORDS SUMMARY | 2024-05-09 15:42 | XMS_ITS | Encounter Summary ---
Author Organization [facility] Address [address], [place] [address] Phone Care Team Providers Care Operations Label Clerk Name Role Phone Tito Hoyos MD Primary Care Provider [phone] Reason for Visit * Reason Comments Med Refill Encounter Details Date Type Department Care Team (Late st Contact Info) Description 03/18/2021 Refill [facility] Nephrology and Hypertension [address] [place] [address], [address] [place], [place] [id number] Lisette Cao MD [address] [facility], [address] [place] [address] Social History Tobacco Use Types Packs/Day Years [...] on filedocumented in this encounter Care Teams Operations Label Clerk Relationship Specialty Start Date End Date Tito Hoyos MD [address] [place] [address] PCP - General Family Medicine 12/05/18 documented as of this encounter
--- OUTSIDE RECORDS SUMMARY | 2024-05-09 15:42 | XMS_ITS | Encounter Summary ---
Author Organization [facility] Address [address], [place] [address] Phone Care Team Providers Care Metal Mold Dresser Name Role Phone Tito Hoyos MD Primary Care Provider [phone] Reason for Visit * Reason Comments Med Refill Encounter Details Date Type Department Care Team (Late st Contact Info) Description 12/26/2020 Refill [facility] Nephrology and Hypertension [address] [place] [address], [address] [place], [place] [phone] Lisette Cao MD [address] [facility], [address] [place] [address] Social History Tobacco Use Types Packs/Day Years [...] on filedocumented in this encounter Care Teams Metal Mold Dresser Relationship Specialty Start Date End Date Tito Hoyos MD [address] [place] [address] PCP - General Family Medicine 12/05/18 documented as of this encounter
--- OUTSIDE RECORDS SUMMARY | 2024-05-09 15:42 | XMS_ITS | Clinical Summary ---
Author Organization [facility] Address [address] [place] [address] Care Team Providers Care Transplant Immunologist Name Role Phone Farhad Marshall MD Primary Care Provider [phone] Allergies Active Allergy Reactions Criticality Noted Date [...] Encounters Date Type Department Care Team Description 05/07/2024 External Device Data STL ABSTRACTION Provider, Abstract 05/04/2024 External Device Data STL ABSTRACTION Provider, Abstract 05/01/2024 External Device Data STL ABSTRACTION Provider, Abstract 05/01/2024 External Device Data STL ABSTRACTION Provider, Abstract 04/17/2024 10:00 AM TOOL AND DIE ASSEMBLER Telephone Check Up [facility] Oncology and Hematology - [address] [place] [address] Eric Ricardo MD Leukocytosis, unspecified type (Primary Dx) 04/17/2024 External Device Data STL ABSTRACTION Provider, Abstract 04/16/2024 Abstract [facility] Oncology and Hematology - D[address] [place] [address] Eric Ricardo MD 04/16/2024 Orders Only [facility] Oncology and Hematology - Dm [address] [place] [address] Eric Ricardo MD 03/29/2024 Orders Only [facility] Oncology and Hematology - Dm [address] [place] [address] Eric Ricardo MD 03/28/2024 Abstract [facility] Oncology and Hematology - D[address] [place] [address] Eric Ricardo MD 03/27/2024 External Device Data STL ABSTRACTION Provider, Abstract 03/27/2024 Orders Only [facility] Oncology and Hematology - D[address] [place] [address] Eric Ricardo MD 03/26/2024 External Device Data STL ABSTRACTION Provider, Abstract 03/21/2024 External Device Data STL ABSTRACTION Provider, Abstract 03/19/2024 1:30 PM TOOL AND DIE ASSEMBLER Office Visit [facility] Oncology and Hematology [address] [place] [address] Eric Ricardo MD Leukocytosis, unspecified [...] on file Legal Sex Female 12:27 PM TOOL AND DIE ASSEMBLER Gender Identity Not on file Sexual Orientation Not on file Last Filed Vital Signs Vital Sign Reading Time Taken Comments Blood Pressure 121/81 03/19/2024 1:59 PM TOOL AND DIE ASSEMBLER Pulse 102 03/19/2024 1:59 PM TOOL AND DIE ASSEMBLER Temperature 36.8 C (98.3 F) 03/19/2024 1:59 PM TOOL AND DIE ASSEMBLER Respiratory Rate - - Oxygen Saturation 95% 03/19/2024 1:59 PM TOOL AND DIE ASSEMBLER Inhaled Oxygen Concentration - - Weight 71.2 kg (157 lb) 03/19/2024 1:59 PM TOOL AND DIE ASSEMBLER Height 154.9 cm (5' 1 ) 03/19/2024 1:59 PM TOOL AND DIE ASSEMBLER Body Mass Index 29.66 03/19/2024 1:59 PM TOOL AND DIE ASSEMBLER Plan of Treatment Upcoming Encounters Date Type Department Care Team (Late st Contact Info) Description 07/19/2024 9:30 AM CDT Office Visit [facility] Oncology and Hematology [address] [place] [address] Eric Ricardo MD [address] [facility] [address] [place] [address] Health Maintenance Due Date Last [...] 60-74 years 1-dose series) 2014 PNEUMOCOCCAL VACCINE 50+ YEARS (2 of 2 - PPSV23) 01/0311/09/2015 OSTEOPOROSIS SCREENING 05/19/2019 INFLUENZA VACCINE (#1) 2023 [place] Prev entative Visit/Annual Wellness Visit 02/28/2024 Procedures Procedure Name Priority Date/Time Associated Diagnosis Comments FLOW CYTOMETRY REPORT Routine 03/27/2024 10:43 AM TOOL AND DIE ASSEMBLER COMPREHENSIVE METABOLIC PANEL Routine 03/27/2024 10:36 AM TOOL AND DIE ASSEMBLER COMPREHENSIVE METABOLIC PANEL Routine 03/26/2024 1:20 PM TOOL AND DIE ASSEMBLER CBC WITH DIFFERENTIAL Routine 03/26/2024 1:10 PM TOOL AND DIE ASSEMBLER COMPREHENSIVE METABOLIC PANEL Routine 03/26/2024 12:38 PM TOOL AND DIE ASSEMBLER from Last 3 Months Results * FLOW CYTOMETRY REPORT (03/27/2024 10:43 AM TOOL AND DIE ASSEMBLER) us Eric Ricardo MD PATHOLOGY/CYTOLOGY ORDERABLES F inal Result * COMPREHENSIVE METABOLIC PANEL (03/27/2024 10:36 AM TOOL AND DIE ASSEMBLER) Only the most recent of3 resultswithin the time period is included. Blood us Eric Ricardo MD CHEMISTRY ORDERABLES Final Resu lt * CBC WITH DIFFERENTIAL (03/26/2024 1:10 PM TOOL AND DIE ASSEMBLER) Blood us Eric Ricardo MD HEMATOLOGY ORDERABLES Final Res ult from Last 3 Months Insurance [facility] MCR Care Teams Transplant Immunologist Relationship Specialty Start Date End Date Farhad Marshall MD [address] [place] [address] PCP - General Family Practice 01/19/24
--- OUTSIDE RECORDS SUMMARY | 2024-05-09 15:42 | XMS_ITS | Encounter Summary ---
Author Organization [facility] Address [address], [place] [address] Phone Care Team Providers Care Trench Digger Helper Name Role Phone Tito Hoyos MD Primary Care Provider [phone] Reason for Visit * Reason Comments Med Refill Encounter Details Date Type Department Care Team (Late st Contact Info) Description 07/05/2021 [address]ill [facility] Nephrology and Hypertension [address] [place] [address], [address] [place], [place] [address] Lisette Cao MD [address] [facility], [address] [place] [address] Social History Tobacco Use Types Packs/Day Years [...] on filedocumented in this encounter Care Teams Trench Digger Helper Relationship Specialty Start Date End Date Tito Hoyos MD [address] [place] [address] PCP - General Family Medicine 12/05/18 documented as of this encounter
--- OUTSIDE RECORDS SUMMARY | 2024-05-09 15:42 | XMS_ITS | Encounter Summary ---
Author Organization [facility] Address [address], [place] [address] Phone Care Team Providers Care Perl Developer Name Role Phone Tito Hoyos MD Primary Care Provider [phone] Reason for Visit * Reason Comments Med Refill Encounter Details Date Type Department Care Team (Late st Contact Info) Description 07/18/2018 Refill [facility] Nephrology and Hypertension [address] [place] [address], [address] [place], [place] [address] Lisette Cao MD [address] [facility], [address] [place] [address] Social History Tobacco Use Types Packs/Day Years [...] on filedocumented in this encounter Care Teams Perl Developer Relationship Specialty Start Date End Date Tito Hoyos MD [address] [place] [address] PCP - General Family Medicine 12/05/18 documented as of this encounter
--- OUTSIDE RECORDS SUMMARY | 2024-05-09 15:42 | XMS_ITS | Clinical Summary ---
Author Organization [facility] Address [address] [place] [address] Phone Care Team Providers Care Enrollment Specialist Name Role Phone Farhad Marshall MD Primary Care Provider [phone] Rupal Taveras APRN, COMPRESS TRUCKER Unavailable [phone] Allergies Active Allergy Reactions Criticality Noted Date [...] Comments Blood Pressure 120/74 04/17/2023 9:28 AM AUTO FORMER MACHINE OPERATOR Pulse 91 04/17/2023 9:28 AM AUTO FORMER MACHINE OPERATOR Temperature 36.4 C (97.6 F) 04/17/2023 9:28 AM AUTO FORMER MACHINE OPERATOR Respiratory Rate 18 04/17/2023 9:28 AM AUTO FORMER MACHINE OPERATOR Oxygen Saturation 96% 04/17/2023 9:28 AM AUTO FORMER MACHINE OPERATOR Inhaled Oxygen Concentration - - Weight 82.7 kg (182 lb 6.4 oz) 04/17/2023 9:28 A M AUTO FORMER MACHINE OPERATOR Height 154.9 cm (5' 1 ) 04/17/2023 9:28 AM AUTO FORMER MACHINE OPERATOR Body Mass Index 34.46 04/17/2023 9:28 AM AUTO FORMER MACHINE OPERATOR Plan of Treatment Health Maintenance Due Date Last Done Comments DEXA Bone Density 1954 Hepatitis C Virus (HCV) Screening 1955 Mammogram 1954 Colonoscopy 05/19/1999 Colorectal Cancer Screening 05/19/1999 Cologuard 2004 Immunochemical Fecal Occult Blood 2004 Pneumococcal Immunization (50+ years) (2 of [...] topic Insurance MEDICARE C [employer] Care Teams Enrollment Specialist Relationship Specialty Start Date End Date Farhad Marshall MD PCP - General Family Medicine 12/22/22 Rupal Taveras, CYBER SOFTWARE ENGINEER, COMPRESS TRUCKER [address] [place] [address] Nurse Practitioner Advanced Practice Nurse 12/22/22
--- OUTSIDE RECORDS SUMMARY | 2024-05-09 15:42 | XMS_ITS | Continuity of Care Document ---
Author Organization [facility] Address [address] [facility] [address] [place] [address] Phone Care Team Providers Care Equipment Maintenance Superintendent Name Role Phone Birch OD, Turner Unavailable Unavailable Procedures Procedure Date Eye Exam & Treatment Refraction Advance Directives Directive Yes / No Effective Date File Name No Information Encounters Encounter Description Practice Location Reason(s) For Visit Diagnoses Date Provider Providers Copied on Encounter [facility] [address], [place], [place], [id number], [place] tel:[phone] [facility] No Information [phone] Birch OD Turner. [address] , [address], [place], [address], [place]. tel:[phone] Family History Family Member Type Diagnosis Age At Onset No Information Payers Payer name Insurance type Covered libertarian ID Authoriza tion(s) Medicare [facility] [id number] Social History Type Description Quantity Date Captured [...]
--- OUTSIDE RECORDS SUMMARY | 2024-05-09 15:42 | XMS_ITS | Encounter Summary ---
Author Organization [facility] Address [address], [place] [address] Phone Care Team Providers Care Boiler Blower Name Role Phone Tito Hoyos MD Primary Care Provider [phone] Reason for Visit * Reason Comments Med Refill Encounter Details Date Type Department Care Team (Late st Contact Info) Description 11/29/2019 Refill [facility] Nephrology and Hypertension [address] [place] [address], [address] [place], [place] [address] Lisette Cao MD [address] [facility], [address] [place] [address] Social History Tobacco Use Types Packs/Day Years [...] on filedocumented in this encounter Care Teams Boiler Blower Relationship Specialty Start Date End Date Tito Hoyos MD [address] [place] [address] PCP - General Family Medicine 12/05/18 documented as of this encounter
--- OUTSIDE RECORDS SUMMARY | 2024-05-09 15:42 | XMS_ITS | Clinical Summary ---
Author Organization [facility] Address [address], [place] [address] Phone Care Team Providers Care Corporate Learning Consultant Name Role Phone Tito Hoyos MD Primary Care Provider [phone] Allergies Active Allergy Reactions Criticality Noted Date [...] AM CDT Pulse - - Temperature 36 C (96.8 F) 08/26/2019 11:28 AM CDT Respiratory Rate 18 [...] Advance Directives For more information, please contact: [phone] (Available ) Documents on File Type Date Recorded Patient Power Electronics Engineer Expl anation Power of Deckhand Sponge Boat 06/16/2018 3:03 PM Ely [email or web address] Care Teams Corporate Learning Consultant Relationship Specialty Start Date End Date Tito Hoyos MD [address] [place] [address] PCP - General Family Medicine 12/05/18
--- OUTSIDE RECORDS SUMMARY | 2024-05-09 15:42 | XMS_ITS | Encounter Summary ---
Author Organization [facility] Address [address] [place] [address] Care Team Providers Care Aircraft Cylinder Mechanic Name Role Phone Farhad Marshall MD Primary Care Provider [phone] Encounter Details Date Type Department Care Team (Late st Contact Info) Description 05/07/2024 External Device Data STL ABSTRACTION Provider, Abstract NO ADDRESS ON FILE Social History Tobacco Use Types Packs/Day Years [...] on file Legal Sex Female 12:27 PM CONSTRUCTION QUALITY CONTROL MANAGER Gender Identity Not on file Sexual Orientation Not on file documented as of this encounter Plan of Treatment Upcoming Encounters Date Type Department Care Team (Late st Contact Info) Description 07/19/2024 9:30 AM CDT Office Visit [facility] Oncology and H[place]ology [place] [address] [place] [address] [facility] [address] [place] [address] Eric Ricardo MD [address] [facility] [address] [place] [address] documented as of this encounter Visit Diagnoses Not on filedocumented in this encounter Care Teams Aircraft Cylinder Mechanic Relationship Specialty Start Date End Date Farhad Marshall MD [address] [place] [id number] PCP - General Family Practice 01/19/24 documented as of this encounter
--- OUTSIDE RECORDS SUMMARY | 2024-05-09 15:42 | XMS_ITS | Encounter Summary ---
Author Organization [facility] Address [address] [place] [address] Phone Care Team Providers Care Citrix Consultant Name Role Phone Tito Hoyos MD Primary Care Provider [phone] Reason for Visit * Reason Comments Med Refill Encounter Details Date Type Department Care Team (Late st Contact Info) Description 06/28/2018 Refill [facility] Nephrology and Hypertension [facility], [place] [address] Lisette Cao MD [facility], [address] [place] [address] Social History Tobacco Use Types Packs/Day Years [...] on filedocumented in this encounter Care Teams Citrix Consultant Relationship Specialty Start Date End Date Tito Hoyos MD [address] [place] [address] PCP - General Family Medicine 12/05/18 documented as of this encounter
== END 2024-05-09 13:53 | disposition home or self-care (01) ==
PROVIDERS: PCP Family Medicine; Visit Provider Family Medicine
DX: Z12.31 Encounter for screening mammogram for malignant neoplasm of breast (principal)
CPT/HCPCS: 77063; 77067

== ENCOUNTER 2024-05-20 09:04 | Outpatient (CLI) | payer MEDICARE, SELFPAY ==
--- NOTE | ~2024-05-20 | US_ITS ---
EXAMINATION: US arterial duplex LE LT DATE: 05/20/2024 10:48 INDICATION: Peripheral vascular disease TECHNIQUE: Multiple grayscale and Doppler ultrasound images of the arteries of the bilateral lower li mbs were obtained. COMPARISON: None FINDINGS: Triphasic waveform with brisk systolic upstroke in the left external iliac, common femoral, profunda femoral and proximal to mid superficial femoral arteries. There is prominent atherosclerotic plaque i n the left common femoral artery with prominent increase in the peak systolic velocity of 165 cm/s re lative to the immediately more proximal external iliac artery peak systolic velocity of 75 cm/s indic ative of a hemodynamically significant stenosis. There is additional prominent atherosclerotic plaque at the proximal and mid left superficial femoral artery with further increase in peak systolic veloc ity to 321 cm/s in the proximal left superficial femoral artery, decreasing to 15 cm/s distal to the stenosis. Waveforms in the more distal left femoral, popliteal, posterior tibial, anterior tibial, pe roneal and dorsalis pedis arteries are monophasic with progressive delay in the systolic upstrokes li steve related to the more proximal stenosis. There are also progressively decreasing peak systolic ashu ocities measuring 24 cm/s in the mid superficial femoral artery, 65 cm/s in the distal superficial fe moral artery and progressively decreasing from 20 cm/s at the popliteal artery to 10 cm/s the dorsali s pedis artery. IMPRESSION: 1. Prominent atherosclerotic plaque and a few locations on grayscale imaging with associated prominen t increase in the peak systolic velocities in the left common femoral and proximal left superficial f emoral arteries consistent with hemodynamically significant stenosis. Reviewed, dictated and finalized at location B. IMPRESSION: 1. Prominent atherosclerotic plaque and a few locations on grayscale imaging wi th associated prominent increase in the peak systolic velocities in the left co mmon femoral and proximal left superficial femoral arteries consistent with hem odynamically significant stenosis.
--- NOTE | ~2024-05-20 | US_ITS ---
ULTRASOUND ANKLE BRACHIAL INDEX Ordering provider: Una Salvador APRN History: . I73.9 - Peripheral vascular disease, unspecified . Comparison: None. FINDINGS: Right brachial systolic blood pressure: 121 mmHg Left brachial systolic blood pressure: 128 mmHg Right ankle systolic blood pressure: 119 mmHg Left ankle systolic blood pressure: 53 mmHg Right ankle/arm index (COLTON): 0.93 Left ankle/arm index (COLTON): 0.41 Note regarding COLTON: --Normal= 1.0 or slightly greater. --Claudication (moderate stenosis or occlusive state)= 0.6 to 0.9. --Rest pain (severe occlusive states)= 0.5 or less. IMPRESSION: Normal right COLTON. Severe occlusive state in the left side. Reviewed, dictated and finalized at location A.
--- OUTSIDE RECORDS SUMMARY | 2024-05-20 09:52 | XMS_ITS | Encounter Summary ---
Author Organization [facility] Address [address] [address] Phone Care Team Providers Care Executive Chairman Name Role Phone Tito Hoyos MD Primary Care Provider [phone] Reason for Visit * Reason Comments Med Refill Encounter Details Date Type Department Care Team (Late st Contact Info) Description 07/05/2021 Refill [facility] Nephrology and Hypertension [address] [place] [address], [address] [place], [place] [address] Lisette Cao MD [address] [facility], [address] [place] [address] Social History Tobacco Use Types Packs/Day Years [...] on filedocumented in this encounter Care Teams Executive Chairman Relationship Specialty Start Date End Date Tito Hoyos MD [address] [place] [address] PCP - General Family Medicine 12/05/18 documented as of this encounter
--- OUTSIDE RECORDS SUMMARY | 2024-05-20 09:52 | XMS_ITS | Clinical Summary ---
Author Organization [facility] Address [address] [place] [address] Phone Care Team Providers Care Canopy Inspector Name Role Phone Farhad Marshall MD Primary Care Provider [phone] Ruapl Taveras APRN, ALTERATION WORKROOM SUPERVISOR Unavailable [phone] Allergies Active Allergy Reactions Criticality Noted Date [...] Comments Blood Pressure 120/74 04/17/2023 9:28 AM REHAB NURSING TECH Pulse 91 04/17/2023 9:28 AM REHAB NURSING TECH Temperature 36.4 C (97.6 F) 04/17/2023 9:28 AM REHAB NURSING TECH Respiratory Rate 18 04/17/2023 9:28 AM REHAB NURSING TECH Oxygen Saturation 96% 04/17/2023 9:28 AM REHAB NURSING TECH Inhaled Oxygen Concentration - - Weight 82.7 kg (182 lb 6.4 oz) 04/17/2023 9:28 A M REHAB NURSING TECH Height 154.9 cm (5' 1 ) 04/17/2023 9:28 AM REHAB NURSING TECH Body Mass Index 34.46 04/17/2023 9:28 AM REHAB NURSING TECH Plan of Treatment Health Maintenance Due Date [...] topic Insurance MEDICARE C [employer] Care Teams Canopy Inspector Relationship Specialty Start Date End Date Farhad Marshall MD PCP - General Family Medicine 12/22/22 Rupal Taveras, SENIOR JAVASCRIPT DEVELOPER, ALTERATION WORKROOM SUPERVISOR [address] [place] [address] Nurse Practitioner Advanced Practice Nurse 12/22/22
--- OUTSIDE RECORDS SUMMARY | 2024-05-20 09:52 | XMS_ITS | Encounter Summary ---
Author Organization [facility] Address [address], [place] [address] Phone Care Team Providers Care Sand Cutting Machine Operator Name Role Phone Tito Hoyos MD Primary Care Provider [phone] Reason for Visit * Reason Comments Med Refill Encounter Details Date Type Department Care Team (Late st Contact Info) Description 11/29/2019 Refill [facility] Nephrology and Hypertension [address] [place] [address], [address] [place], [place] [address] Lisette Cao MD [address] [facility], [address] [place] [address] Social History Tobacco Use Types Packs/Day Years [...] on filedocumented in this encounter Care Teams Sand Cutting Machine Operator Relationship Specialty Start Date End Date Tito Hoyos MD [address] [place] [address] PCP - General Family Medicine 12/05/18 documented as of this encounter
--- OUTSIDE RECORDS SUMMARY | 2024-05-20 09:52 | XMS_ITS | Encounter Summary ---
Author Organization [facility] Address [address], [place] [address] Phone Care Team Providers Care Director Internal Audit Name Role Phone Tito Hoyos MD Primary Care Provider [phone] Reason for Visit * Reason Comments Med Refill Encounter Details Date Type Department Care Team (Late st Contact Info) Description 03/18/2021 Refill [facility] Nephrology and Hypertension [address] [place] [address], [address] [place], [place] [address] Lisette Cao MD [address] [facility], [address] [place] [address] Social History Tobacco Use Types Packs/Day Years [...] on filedocumented in this encounter Care Teams Director Internal Audit Relationship Specialty Start Date End Date Tito Hoyos MD [address] [place] [address] PCP - General Family Medicine 12/05/18 documented as of this encounter
--- OUTSIDE RECORDS SUMMARY | 2024-05-20 09:52 | XMS_ITS | Encounter Summary ---
Author Organization [facility] Address [address] [place] [address] Phone Care Team Providers Care Press Operator Name Role Phone Tito Hoyos MD Primary Care Provider [phone] Reason for Visit * Reason Comments Med Refill Encounter Details Date Type Department Care Team (Late st Contact Info) Description 06/28/2018 Refill [facility] Nephrology and Hypertension [facility], [place] [address] Lisette Cao MD [facility], [address] [place] [address] Social History Tobacco Use Types Packs/Day Years [...] on filedocumented in this encounter Care Teams Press Operator Relationship Specialty Start Date End Date Tito Hoyos MD [address] [place] [address] PCP - General Family Medicine 12/05/18 documented as of this encounter
--- OUTSIDE RECORDS SUMMARY | 2024-05-20 09:52 | XMS_ITS | Encounter Summary ---
Author Organization [facility] Address [address], [place] [address] Phone Care Team Providers Care Wiper Blender Name Role Phone Tito Hoyos MD Primary Care Provider [phone] Reason for Visit * Reason Comments Med Refill Encounter Details Date Type Department Care Team (Late st Contact Info) Description 06/13/2018 Refill [facility]phrology and Hypertension [address] [place] [address], [address] [place], [place] [phone] Lisette Cao MD [address] [facility], [address] [place] [address] Social History Tobacco Use Types Packs/Day Years [...] on filedocumented in this encounter Care Teams Wiper Blender Relationship Specialty Start Date End Date Tito Hoyos MD [address] [place] [address] PCP - General Family Medicine 12/05/18 documented as of this encounter
--- OUTSIDE RECORDS SUMMARY | 2024-05-20 09:52 | XMS_ITS | Encounter Summary ---
Author Organization [facility] Address [address] [address] Phone Care Team Providers Care Animal Physiologist Name Role Phone Tito Hoyos MD Primary Care Provider [phone] Reason for Visit * Reason Comments Med Refill Encounter Details Date Type Department Care Team (Late st Contact Info) Description 03/18/2021 Refill [facility] Nephrology and Hypertension [address] [place] [address], [address] [place], [place] [id number] Lisette Cao MD [address] [facility], [address] [place] [address] Social History Tobacco Use Types Packs/Day Years [...] on filedocumented in this encounter Care Teams Animal Physiologist Relationship Specialty Start Date End Date Tito Hoyos MD [address] [place] [address] PCP - General Family Medicine 12/05/18 documented as of this encounter
--- OUTSIDE RECORDS SUMMARY | 2024-05-20 09:52 | XMS_ITS | Encounter Summary ---
Author Organization [facility] Address [address], [place] [address] Phone Care Team Providers Care Bench Scientist Name Role Phone Tito Hoyos MD Primary Care Provider [phone] Reason for Visit * Reason Comments Med Refill Encounter Details Date Type Department Care Team (Late st Contact Info) Description 12/26/2020 Refill [facility] Nephrology and Hypertension [address] [place] [address], [address] [place], [place] [id number] Lisette Cao MD [address] [facility], [address] [place] [address] Social History Tobacco Use Types Packs/Day Years [...] on filedocumented in this encounter Care Teams Bench Scientist Relationship Specialty Start Date End Date Tito Hoyos MD [address] [place] [address] PCP - General Family Medicine 12/05/18 documented as of this encounter
--- OUTSIDE RECORDS SUMMARY | 2024-05-20 09:52 | XMS_ITS | Continuity of Care Document ---
Author Organization [facility] Address [address] [facility] [address] [place] [address] Phone Care Team Providers Care Welt Rougher Name Role Phone Birch OD, Turner Unavailable Unavailable Procedures Procedure Date Eye Exam & Treatment Refraction Advance Directives Directive Yes / No Effective Date File Name No Information Encounters Encounter Description Practice Location Reason(s) For Visit Diagnoses Date Provider Providers Copied on Encounter [facility], [id number] [place] [address] [address], [place], [place], [id number], [place] tel:[phone] [facility] No Information 0 [phone] Birch OD Turner. [address] , [address], [place], [address], [place]. tel:[phone] Family History Family Member Type Diagnosis Age At Onset No Information Payers Payer name Insurance type Covered republican ID Authoriza tion(s) Medicare [facility] [id number] Social History Type Description Quantity Date Captured [...]
--- OUTSIDE RECORDS SUMMARY | 2024-05-20 09:52 | XMS_ITS | Encounter Summary ---
Author Organization [facility] Address [address] [address] Phone Care Team Providers Care Nuclear Waste Process Operator Name Role Phone Tito Hoyos MD Primary Care Provider [phone] Reason for Visit * Reason Comments Med Refill Encounter Details Date Type Department Care Team (Late st Contact Info) Description 07/18/2018 Refill [facility] Nephrology and Hypertension [address] [place] [address], [address] [place], [place] [id number] Lisette Cao MD [address] [facility], [address] [place] [address] Social History Tobacco Use Types Packs/Day Years [...] on filedocumented in this encounter Care Teams Nuclear Waste Process Operator Relationship Specialty Start Date End Date Tito Hoyos MD [address] [place] [address] PCP - General Family Medicine 12/05/18 documented as of this encounter
--- OUTSIDE RECORDS SUMMARY | 2024-05-20 09:52 | XMS_ITS | Clinical Summary ---
Author Organization [facility] Address [address] [place] [address] Care Team Providers Care Insulation Supervisor Name Role Phone Farhad Marshall MD Primary Care Provider [phone] Allergies Active Allergy Reactions Criticality Noted Date Comments Cashew Nut Other (See Comments) 03/19/2024 Allergy skin test Citalopram Rash,Nausea and Vomiting Low 12/29/2022 Dexamethasone Rash,Nausea and Vomiting Low 12/30/19 23 Ibuprofen Rash,Nausea and Vomiting Low 12/29/2022 Loratadine [...] Encounters Date Type Department Care Team Description 05/15/2024 External Device Data STL ABSTRACTION Provider, Abstract 05/08/2024 External Device Data STL ABSTRACTION Provider, Abstract 05/07/2024 External Device Data STL ABSTRACTION Provider, Abstract 05/04/2024 External Device Data STL ABSTRACTION Provider, Abstract 05/01/2024 External Device Data STL ABSTRACTION Provider, Abstract 05/01/2024 External Device Data STL ABSTRACTION Provider, Abstract 04/17/2024 10:00 AM WEB UI DEVELOPER Telephone Check Up [facility] Oncology and Hematology [facility] [address] [place] [address] Eric Ricardo MD Leukocytosis, unspecified type (Primary Dx) 04/17/2024 External Device Data STL ABSTRACTION Provider, Abstract 04/16/2024 Abstract [facility] Oncology and Hematology - [address] [place] [address] Eric Ricardo MD 04/16/2024 Orders Only [facility] Oncology and Hematology - [address] [place] [address] Eric Ricardo MD 03/29/2024 Orders Only [facility] Oncology and Hematology - [address] [place] [address] Eric Ricardo MD 03/28/2024 Abstract [facility] Oncology and Hematology - [address] [place] [address] Eric Ricardo MD 03/27/2024 External Device Data STL ABSTRACTION Provider, Abstract 03/27/2024 Orders Only [facility] Oncology and Hematology - [address] [place] [address] Eric Ricardo MD 03/26/2024 External Device Data STL ABSTRACTION Provider, Abstract 03/21/2024 External Device Data STL ABSTRACTION Provider, Abstract 03/19/2024 1:30 PM WEB UI DEVELOPER Office Visit [facility] Oncology and Hematology [facility] [address] [facility] [address] [place] [address] Eric Ricardo MD Leukocytosis, unspecified [...] on file Legal Sex Female 12:27 PM WEB UI DEVELOPER Gender Identity Not on file Sexual Orientation Not on file Last Filed Vital Signs Vital Sign Reading Time Taken Comments Blood Pressure 121/81 03/19/2024 1:59 PM WEB UI DEVELOPER Pulse 102 03/19/2024 1:59 PM WEB UI DEVELOPER Temperature 36.8 C (98.3 F) 03/19/2024 1:59 PM WEB UI DEVELOPER Respiratory Rate - - Oxygen Saturation 95% 03/19/2024 1:59 PM WEB UI DEVELOPER Inhaled Oxygen Concentration - - Weight 71.2 kg (157 lb) 03/19/2024 1:59 PM WEB UI DEVELOPER Height 154.9 cm (5' 1 ) 03/19/2024 1:59 PM WEB UI DEVELOPER Body Mass Index 29.66 03/19/2024 1:59 PM WEB UI DEVELOPER Plan of Treatment Upcoming Encounters Date Type Department Care Team (Late st Contact Info) Description 07/19/2024 9:30 AM CDT Office Visit [facility] Oncology and Hematology [address] [facility] [facility] [address] [place] [address] Eric Ricardo MD [address] [facility] [address] [place] [address] Health Maintenance Due Date Last [...] 05/19/2019 INFLUENZA VACCINE (#1) 2023 [place]) Prev entative Visit/Annual Wellness Visit 02/28/2024 Procedures Procedure Name Priority Date/Time Associated Diagnosis Comments FLOW CYTOMETRY REPORT Routine 03/27/2024 10:43 AM WEB UI DEVELOPER COMPREHENSIVE METABOLIC PANEL Routine 03/27/2024 10:36 AM WEB UI DEVELOPER COMPREHENSIVE METABOLIC PANEL Routine 03/26/2024 1:20 PM WEB UI DEVELOPER CBC WITH DIFFERENTIAL Routine 03/26/2024 1:10 PM WEB UI DEVELOPER COMPREHENSIVE METABOLIC PANEL Routine 03/26/2024 12:38 PM WEB UI DEVELOPER from Last 3 Months Results * FLOW CYTOMETRY REPORT (03/27/2024 10:43 AM WEB UI DEVELOPER) us Eric Ricardo MD PATHOLOGY/CYTOLOGY ORDERABLES F inal Result * COMPREHENSIVE METABOLIC PANEL (03/27/2024 10:36 AM WEB UI DEVELOPER) Only the most recent of3 resultswithin the time period is included. Blood us Eric Ricardo MD CHEMISTRY ORDERABLES Final Resu lt * CBC WITH DIFFERENTIAL (03/26/2024 1:10 PM WEB UI DEVELOPER) Blood Eric Ricardo MD HEMATOLOGY ORDERABLES Final Res ult from Last 3 Months Insurance [facility] MCR Care Teams Insulation Supervisor Relationship Specialty Start Date End Date Farhad Marshall MD [address] [place] [address] PCP - General Family Practice 01/19/24
--- OUTSIDE RECORDS SUMMARY | 2024-05-20 09:52 | XMS_ITS | Encounter Summary ---
Author Organization [facility] Address [address] [place] [address] Phone Care Team Providers Care Program Professional Name Role Phone Tito Hoyos MD Primary Care Provider [phone] Reason for Visit * Reason Comments Med Refill Encounter Details Date Type Department Care Team (Late st Contact Info) Description 06/29/2018 Refill [facility] Nephrology and Hypertension [facility] [facility], [place] [address] Lisette Cao MD [facility] [facility], [address] [place] [address] Social History Tobacco Use Types Packs/Day Years [...] on filedocumented in this encounter Care Teams Program Professional Relationship Specialty Start Date End Date Tito Hoyos MD [address] [place] [address] PCP - General Family Medicine 12/05/18 documented as of this encounter
--- OUTSIDE RECORDS SUMMARY | 2024-05-20 09:52 | XMS_ITS | Clinical Summary ---
Author Organization [facility] Address [address], [place] [address] Phone Care Team Providers Care Sales Representative Uniforms Name Role Phone Tito Hoyos MD Primary Care Provider Allergies Active Allergy Reactions Criticality Noted Date [...] Advance Directives For more information, please contact: [phone] (Available ) Documents on File Type Date Recorded Patient Lever Miller Expl anation Power of Supervisor Cab 06/16/2018 3:03 PM Ely [id number].[email or web address] Care Teams Sales Representative Uniforms Relationship Specialty Start Date End Date Tito Hoyos MD [address] [place] [address] PCP - General Family Medicine 12/05/18
== END 2024-05-20 09:05 | disposition home or self-care (01) ==
PROVIDERS: PCP Family Medicine; Visit Provider Nurse Practitioner Family
DX: I73.9 Peripheral vascular disease, unspecified (principal)
CPT/HCPCS: 93922; 93926

== ENCOUNTER 2024-05-22 09:04 | Outpatient (CLI) | payer MEDICARE, SELFPAY ==
--- NOTE | ~2024-05-22 | CT_ITS ---
EXAMINATION: CT lung screening DATE: 05/22/2024 09:24 INDICATION: Personal history of nicotine dependence TECHNIQUE: Computed tomography (CT) of the chest was performed without intravenous contrast. The dose -length product was 60.04 mGy-cm. Automated exposure control and iterative reconstruction technique w ere employed. COMPARISON: CT dated 05/22/2023 and 05/19/2022 FINDINGS: There is atherosclerosis of the aorta and coronary arteries. Heart size normal. No signific ant pleural or pericardial effusion. No thoracic lymphadenopathy. No endobronchial lesions. No pneumo thorax. There are small right lower lobe nodules measuring 5 mm or less. There is a 3 mm right middle lobe nodule unchanged. There are small scattered upper lobe nodules measuring 2 mm or less stable. N o new pulmonary nodules or masses. Moderate thoracic spondylosis. No lytic or blastic lesions. IMPRESSION: 1. Lung-RADS category 2: Benign appearance or behavior. Continue annual screening with noncontrast lo w-dose chest CT in 12 months. Reviewed, dictated and finalized at location A. IMPRESSION: 1. Lung-RADS category 2: Benign appearance or behavior. Continue annual screeni ng with noncontrast low-dose chest CT in 12 months.
--- OUTSIDE RECORDS SUMMARY | 2024-05-22 09:42 | XMS_ITS | Clinical Summary ---
Author Organization [facility] Address [address] [place] [address] Phone Care Team Providers Care Director Sales Training Name Role Phone Farhad Marshall MD Primary Care Provider [phone] Rupal Taveras APRN, FLAT SURFACER Unavailable [phone] Allergies Active Allergy Reactions Criticality Noted Date [...] Comments Blood Pressure 120/74 04/17/2023 9:28 AM ELECTRICAL CONTINUITY TESTER Pulse 91 04/17/2023 9:28 AM ELECTRICAL CONTINUITY TESTER Temperature 36.4 C (97.6 F) 04/17/2023 9:28 AM ELECTRICAL CONTINUITY TESTER Respiratory Rate 18 04/17/2023 9:28 AM ELECTRICAL CONTINUITY TESTER Oxygen Saturation 96% 04/17/2023 9:28 AM ELECTRICAL CONTINUITY TESTER Inhaled Oxygen Concentration - - Weight 82.7 kg (182 lb 6.4 oz) 04/17/2023 9:28 A M ELECTRICAL CONTINUITY TESTER Height 154.9 cm (5' 1 ) 04/17/2023 9:28 AM ELECTRICAL CONTINUITY TESTER Body Mass Index 34.46 04/17/2023 9:28 AM ELECTRICAL CONTINUITY TESTER Plan of Treatment Health Maintenance Due Date [...] topic Insurance MEDICARE C [employer] Care Teams Director Sales Training Relationship Specialty Start Date End Date Farhad Marshall MD PCP - General Family Medicine 12/22/22 Rupal Taveras, ROLL EDGE STITCHER HAND, FLAT SURFACER [address] [place] [address] Nurse Practitioner Advanced Practice Nurse 12/22/22
--- OUTSIDE RECORDS SUMMARY | 2024-05-22 09:42 | XMS_ITS | Clinical Summary ---
Author Organization [facility] Address [address] [place] [address] Care Team Providers Care Skidder Loader Name Role Phone Farhad Marshall MD Primary Care Provider [phone] Allergies Active Allergy Reactions Criticality Noted Date [...] STL ABSTRACTION Provider, Abstract 04/17/2024 10:00 AM POKER DEALER Telephone Check Up [facility] Oncology and Hematology [facility] [address] [place] [address] Eric Ricardo MD Leukocytosis, unspecified type (Primary Dx) 04/17/2024 External Device Data STL ABSTRACTION Provider, Abstract 04/16/2024 Abstract [facility] Oncology and Hematology - [address] [place] [address] Eric Ricardo MD 04/16/2024 Orders Only [facility] Oncology and Hematology - [address] [place] [address] Eric Ricardo MD 03/29/2024 Orders Only [facility] Oncology and Hematology - [address] [place] [address] Eric Ricardo MD 03/28/2024 Abstract [facility] Oncology and Hematology - [address] [place] [address] Eric Ricardo MD 03/27/2024 External Device Data STL ABSTRACTION Provider, Abstract 03/27/2024 Orders Only [facility] Oncology and Hematology - [address] [place] [address] Eric Ricardo MD 03/26/2024 External Device Data STL ABSTRACTION Provider, Abstract 03/21/2024 External Device Data STL ABSTRACTION Provider, Abstract 03/19/2024 1:30 PM POKER DEALER Office Visit [facility] Oncology and Hematology [facility] [address] [facility] [facility] [address] [place] [address] Eric Ricardo MD Leukocytosis, unspecified [...] on file Legal Sex Female 12:27 PM POKER DEALER Gender Identity Not on file Sexual Orientation Not on file Last Filed Vital Signs Vital Sign Reading Time Taken Comments Blood Pressure 121/81 03/19/2024 1:59 PM POKER DEALER Pulse 102 03/19/2024 1:59 PM POKER DEALER Temperature 36.8 C (98.3 F) 03/19/2024 1:59 PM POKER DEALER Respiratory Rate - - Oxygen Saturation 95% 03/19/2024 1:59 PM POKER DEALER Inhaled Oxygen Concentration - - Weight 71.2 kg (157 lb) 03/19/2024 1:59 PM POKER DEALER Height 154.9 cm (5' 1 ) 03/19/2024 1:59 PM POKER DEALER Body Mass Index 29.66 03/19/2024 1:59 PM POKER DEALER Plan of Treatment Upcoming Encounters Date Type Department Care Team (Late st Contact Info) Description 07/19/2024 9:30 AM CDT Office Visit [facility]cology and [facility]ematology [address] [facility] [address] [place] [address] Eric Ricardo MD [address] [facility] [address] [place] [address] Health Maintenance Due Date Last [...] 05/19/2019 INFLUENZA VACCINE (#1) 2023 [place]) Prev entative Visit/Annual Wellness Visit 02/28/2024 Procedures Procedure Name Priority Date/Time Associated Diagnosis Comments FLOW CYTOMETRY REPORT Routine 03/27/2024 10:43 AM POKER DEALER COMPREHENSIVE METABOLIC PANEL Routine 03/27/2024 10:36 AM POKER DEALER COMPREHENSIVE METABOLIC PANEL Routine 03/26/2024 1:20 PM POKER DEALER CBC WITH DIFFERENTIAL Routine 03/26/2024 1:10 PM POKER DEALER COMPREHENSIVE METABOLIC PANEL Routine 03/26/2024 12:38 PM POKER DEALER from Last 3 Months Results * FLOW CYTOMETRY REPORT (03/27/2024 10:43 AM POKER DEALER) us Eric Ricardo MD PATHOLOGY/CYTOLOGY ORDERABLES F inal Result * COMPREHENSIVE METABOLIC PANEL (03/27/2024 10:36 AM POKER DEALER) Only the most recent of3 resultswithin the time period is included. Blood us Eric Ricardo MD CHEMISTRY ORDERABLES Final Resu lt * CBC WITH DIFFERENTIAL (03/26/2024 1:10 PM POKER DEALER) Blood Eric Ricardo MD HEMATOLOGY ORDERABLES Final Res ult from Last 3 Months Insurance [facility] MCR Care Teams Skidder Loader Relationship Specialty Start Date End Date Farhad Marshall MD [address] [place] [address] PCP - General Family Practice 01/19/24
--- OUTSIDE RECORDS SUMMARY | 2024-05-22 09:42 | XMS_ITS | Encounter Summary ---
Author Organization [facility] Address [address] [address] Phone Care Team Providers Care Client Service Executive Name Role Phone Tito Hoyos MD Primary Care Provider [phone] Reason for Visit * Reason Comments Med Refill Encounter Details Date Type Department Care Team (Late st Contact Info) Description 07/18/2018 Refill [facility] Nephrology and Hypertension [address] [place] [address], [address] [place], [place] [id number] Lisette Cao MD [address] [facility], [address] [place] [address] Social History Tobacco Use Types Packs/Day Years [...] on filedocumented in this encounter Care Teams Client Service Executive Relationship Specialty Start Date End Date Tito Hoyos MD [address] [place] [address] PCP - General Family Medicine 12/05/18 documented as of this encounter
--- OUTSIDE RECORDS SUMMARY | 2024-05-22 09:42 | XMS_ITS | Encounter Summary ---
Author Organization [facility] Address [address], [place] [address] Phone Care Team Providers Care Lock Tender Name Role Phone Tito Hoyos MD Primary Care Provider [phone] Reason for Visit * Reason Comments Med Refill Encounter Details Date Type Department Care Team (Late st Contact Info) Description 03/18/2021 Refill [facility] Nephrology and Hypertension [address] [place] [address], [address] [place], [place] [address] Lisette Cao MD [address] [facility], [address] [place] [address] Social History Tobacco Use Types Packs/Day Years [...] on filedocumented in this encounter Care Teams Lock Tender Relationship Specialty Start Date End Date Tito Hoyos MD [address] [place] [address] PCP - General Family Medicine 12/05/18 documented as of this encounter
--- OUTSIDE RECORDS SUMMARY | 2024-05-22 09:42 | XMS_ITS | Encounter Summary ---
Author Organization [facility] Address [address], [place] [address] Phone Care Team Providers Care Electronic Gluer Name Role Phone Tito Hoyos MD Primary Care Provider [phone] Reason for Visit * Reason Comments Med Refill Encounter Details Date Type Department Care Team (Late st Contact Info) Description 06/13/[address] [facility] Nephrology and Hypertension [address] [place] [address], [address] [place], [place] [phone] Lisette Cao MD [address] [facility], [address] [place] [address] Social History Tobacco Use Types Packs/Day Years [...] on filedocumented in this encounter Care Teams Electronic Gluer Relationship Specialty Start Date End Date Tito Hoyos MD [address] [place] [address] PCP - General Family Medicine 12/05/18 documented as of this encounter
--- OUTSIDE RECORDS SUMMARY | 2024-05-22 09:42 | XMS_ITS | Encounter Summary ---
Author Organization [facility] Address [address] [place] [address] Phone Care Team Providers Care Wellness Instructor Name Role Phone Tito Hoyos MD Primary Care Provider [phone] Reason for Visit * Reason Comments Med Refill Encounter Details Date Type Department Care Team (Late st Contact Info) Description 06/29/2018 Refill [facility] Nephrology and Hypertension [facility], [place] [address] Lisette Cao MD [facility]4 [facility], [address] [place] [address] Social History Tobacco Use Types Packs/Day Years [...] on filedocumented in this encounter Care Teams Wellness Instructor Relationship Specialty Start Date End Date Tito Hoyos MD [address] [place] [address] PCP - General Family Medicine 12/05/18 documented as of this encounter
--- OUTSIDE RECORDS SUMMARY | 2024-05-22 09:42 | XMS_ITS | Encounter Summary ---
Author Organization [facility] Address [address] [address] Phone Care Team Providers Care Clock And Watch Hands Dipper Name Role Phone Tito Hoyos MD Primary Care Provider [phone] Reason for Visit * Reason Comments Med Refill Encounter Details Date Type Department Care Team (Late st Contact Info) Description 07/05/2021 Refill [facility] Nephrology and Hypertension [address] [place] [address], [address] [place], [place] [phone] Lisette Cao MD [address] [facility], [address] [place] [address] Social History Tobacco Use Types Packs/Day Years [...] on filedocumented in this encounter Care Teams Clock And Watch Hands Dipper Relationship Specialty Start Date End Date Tito Hoyos MD [address] [place] [address] PCP - General Family Medicine 12/05/18 documented as of this encounter
--- OUTSIDE RECORDS SUMMARY | 2024-05-22 09:42 | XMS_ITS | Encounter Summary ---
Author Organization [facility] Address [address], [place] [address] Phone Care Team Providers Care Solution Maker Name Role Phone Tito Hoyos MD Primary Care Provider [phone] Reason for Visit * Reason Comments Med Refill Encounter Details Date Type Department Care Team (Late st Contact Info) Description 03/18/2021 Refill [facility] Nephrology and Hypertension [address] [place] [address], [address] [place], [place] [phone] Lisette Cao MD [address] [facility], [address] [place] [address] Social History Tobacco Use Types Packs/Day Years [...] on filedocumented in this encounter Care Teams Solution Maker Relationship Specialty Start Date End Date Tito Hoyos MD [address] [place] [address] PCP - General Family Medicine 12/05/18 documented as of this encounter
--- OUTSIDE RECORDS SUMMARY | 2024-05-22 09:42 | XMS_ITS | Encounter Summary ---
Author Organization [facility] Address [address] [address] Phone Care Team Providers Care Ground Systems Engineer Name Role Phone Tito Hoyos MD Primary Care Provider [phone] Reason for Visit * Reason Comments Med Refill Encounter Details Date Type Department Care Team (Late st Contact Info) Description 11/29/2019 [address]ill [facility] Nephrology and Hypertension [address] [place] [address], [address] [place], [place] [phone] Lisette Cao MD [address] [facility], [address] [place] [address] Social History Tobacco Use Types Packs/Day Years [...] on filedocumented in this encounter Care Teams Ground Systems Engineer Relationship Specialty Start Date End Date Tito Hoyos MD [address] [place] [address] PCP - General Family Medicine 12/05/18 documented as of this encounter
--- OUTSIDE RECORDS SUMMARY | 2024-05-22 09:42 | XMS_ITS | Clinical Summary ---
Author Organization [facility] Address [address] [address] Phone Care Team Providers Care Order Entry Administrator Name Role Phone Tito Hoyos MD Primary Care Provider [phone] Allergies Active Allergy Reactions Criticality Noted Date [...] Advance Directives For more information, please contact: [phone] (Available ) Documents on File Type Date Recorded Patient Trim Setter Expl anation Power of Bill Clerk 06/16/2018 3:03 PM Ely [id number] Care Teams Order Entry Administrator Relationship Specialty Start Date End Date Tito Hoyos MD [address] [place] [address] PCP - General Family Medicine 12/05/18
--- OUTSIDE RECORDS SUMMARY | 2024-05-22 09:42 | XMS_ITS | Encounter Summary ---
Author Organization [facility] Address [address] [place] [address] Phone Care Team Providers Care Corporate Quality Engineer Name Role Phone Tito Hoyos MD Primary Care Provider [phone] Reason for Visit * Reason Comments Med Refill Encounter Details Date Type Department Care Team (Late st Contact Info) Description 06/28/2018 Refill [facility] Nephrology and Hypertension [facility], [place] [address] Lisette Cao MD [facility], [address] [place] [address] Social History Tobacco Use Types Packs/Day Years [...] on filedocumented in this encounter Care Teams Corporate Quality Engineer Relationship Specialty Start Date End Date Tito Hoyos MD [address] [place] [address] PCP - General Family Medicine 12/05/18 documented as of this encounter
--- OUTSIDE RECORDS SUMMARY | 2024-05-22 09:42 | XMS_ITS | Encounter Summary ---
Author Organization [facility] Address [address], [place] [address] Phone Care Team Providers Care Quality Assurance Supervisor Body Name Role Phone Tito Hoyos MD Primary Care Provider [phone] Reason for Visit * Reason Comments Med Refill Encounter Details Date Type Department Care Team (Late st Contact Info) Description 12/26/2020 Refill [facility] Nephrology and Hypertension [address] [place] [address], [address] [place], [place] [phone] Lisette Cao MD [address] [facility], [address] [place] [address] Social History Tobacco Use Types Packs/Day Years [...] on filedocumented in this encounter Care Teams Quality Assurance Supervisor Body Relationship Specialty Start Date End Date Tito Hoyos MD [address] [place] [address] PCP - General Family Medicine 12/05/18 documented as of this encounter
--- OUTSIDE RECORDS SUMMARY | 2024-05-22 09:42 | XMS_ITS | Continuity of Care Document ---
Author Organization [facility] Address [address] [facility] [address] [place] [address] Phone Care Team Providers Care Knot Borer Name Role Phone Birch OD, Turner Unavailable Unavailable Procedures Procedure Date Eye Exam & Treatment Refraction Advance Directives Directive Yes / No Effective Date File Name No Information Encounters Encounter Description Practice Location Reason(s) For Visit Diagnoses Date Provider Providers Copied on Encounter [facility], [address] [place] [address] [address], [place], [place], [id number], [place] tel:[phone] [facility] [place] No Information [phone] 4-201 0 Birch OD Turner. [address] , [address], [place], [address], [place]. tel:[phone] Family History Family Member Type Diagnosis Age At Onset No Information Payers Payer name Insurance type Covered alliance party ID Authoriza tion(s) Medicare [facility] [id number] Social History Type Description Quantity Date Captured [...]
== END 2024-05-22 09:05 | disposition home or self-care (01) ==
PROVIDERS: PCP Family Medicine; Visit Provider Physician Assistant
DX: Z12.2 Encounter for screening for malignant neoplasm of respiratory organs (principal); Z87.891 Personal history of nicotine dependence; R68.89 Other general symptoms and signs
CPT/HCPCS: 71271

== ENCOUNTER 2024-05-24 10:05 | Outpatient (CLI) | payer MEDICARE, MEDICAID, SELFPAY ==
--- NOTE | ~2024-05-24 | CT_ITS ---
EXAMINATION: CTA LE LT DATE: 05/24/2024 11:31 INDICATION: Peripheral vascular disease. Open wound to the left foot. TECHNIQUE: Computed tomographic angiography (CTA) of the abdominal, pelvis, and both lower extremitie s was performed with 150 mL Omnipaque 350 intravenous contrast. The dose-length product was mGy-cm. COMPARISON: None. FINDINGS: ABDOMINAL AORTA AND PELVIC VASCULATURE: Nonhemodynamically significant atherosclerotic plaque along the normal caliber abdominal aorta. Penet rating atherosclerotic ulcer with small curvilinear dissection flap along the right side of the infra renal abdominal aorta. Scattered atherosclerotic plaque with no hemodynamically significant stenosis along the lateral common, external and left internal iliac arteries. There is moderate stenosis at th e origin of the right internal iliac artery. RIGHT LOWER EXTREMITY: <50% stenosis along the right common femoral artery. 50% stenosis at the origin of the right superfic ial femoral artery with scattered mild <50% stenosis more distally along the right femoral artery. No significant stenosis along the right profunda femoral artery. Moderate 50-70% stenosis at the juncti on of the right superficial to proximal popliteal artery. Scattered mild <50% stenosis along the more distal popliteal, tibioperoneal trunk and posterior tibial artery. Atherosclerotic plaque which appe ars minimally significant at the origin of the right peroneal artery but which is too small for quant itative assessment which becomes atretic or distally with contrast becoming essentially indiscernible just peripheral to the ankle. There is probably ankle with the right anterior tibial and posterior t ibial arteries the former supplying the contrast enhanced dorsalis pedis artery. LEFT LOWER EXTREMITY: Moderate 50-70% stenosis at the distal left common femoral artery. Scattered mild plaque with <50% st enosis on the left profunda femoral artery. Multifocal plaque along the left superficial femoral goldie ry with 70% stenosis proximally and in the mid artery with intervening mild associated percent stenos is. There is L4-5 centimeters complete segmental occlusion of the distal left femoral artery which be gins 20 cm above level of the knee joint line which reconstitutes more distally via collaterals. Scat tered mild <50% stenosis along the [id number] left popliteal artery. There is a high bifurcation of the popliteal artery which occurs couple centimeters above level of the knee joint line. There is scattered atherosclerotic plaque with <50% stenosis at the tibioperoneal trunk and the anterior tibia l, posterior tibial and peroneal arteries with three-vessel runoff below the ankle. ADDITIONAL FINDINGS: Low-attenuation cysts at the lower poles of both kidneys larger on the right measuring 1.3 cm. Visual ized portions of bowels are normal. Bladder is normal. 2 cm fibroid versus thickened endometrial comp emilee at the fundus of the atrophic uterus. Bilateral adnexa are unremarkable. No free fluid in the pel vis. No pathologically enlarged or abdominal, pelvic or bilateral inguinal lymphadenopathy. Anterior fusion at L5-S1 and moderate spondylosis in the visualized cephalad lumbar spine. Severe lower lumbar facet osteoarthritis. IMPRESSION: 1. Access of atherosclerotic disease in the arteries of the upper abdomen, pelvis and bilateral lowe r limbs. This is most notable for regions of mild and moderate stenosis in both lower limbs as detail ed above and a 4 cm segmental occlusion of the distal left superficial femoral artery. 2. Penetrating atherosclerotic ulcer with small dissection flap at the right-sided the infrarenal abd ominal aorta. 3. 2 cm fibroid versus thickened endometrial complex at the fundus of the atrophic uterus. Correlate for abnormal vaginal bleeding and consider pelvic ultrasound for further evaluation. Reviewed, dictated and finalized at location B. IMPRESSION: 1. Access of atherosclerotic disease in the arteries of the upper abdomen, pel vis and bilateral lower limbs. This is most notable for regions of mild and mod erate stenosis in both lower limbs as detailed above and a 4 cm segmental occlu moni of the distal left superficial femoral artery. 2. Penetrating atherosclerotic ulcer with small dissection flap at the right-si ded the infrarenal abdominal aorta. 3. 2 cm fibroid versus thickened endometrial complex at the fundus of the atrop hic uterus. Correlate for abnormal vaginal bleeding and consider pelvic ultraso und for further evaluation.
--- NOTE | ~2024-05-24 | XR_ITS ---
XR toe 4th LT min 2V 05/24/2024 10:49 Indication: Left fourth toe wound Procedure: 4 views left fourth toe Comparison: No prior studies for comparison. Findings: There is anatomic alignment. No fracture or traumatic malalignment. Osteopenia. No erosive changes. There is mild soft tissue swelling of the fourth and fifth toes. Impression: 1: No acute bone or joint abnormality. If there is concern for osteomyelitis, further evaluation with MRI without and with contrast recommended. Reviewed, dictated and finalized at location A. Impression: 1: No acute bone or joint abnormality. If there is concern for osteomyelitis, f urther evaluation with MRI without and with contrast recommended.
[2024-05-24 10:52] LABS: Hematocrit 40.5 % (37.0-47.0); Mean Corpuscular HGB Conc 32.1 g/dl (32-36); Mean Corpuscular Hemoglobin 27.3 pg (26-34); Mean Corpuscular Volume 85.1 fl (80-100); Mean Platelet Volume 10.5 fl (7.4-10.4); Platelet Count Result 426 k/mm3 (150-375); Red Blood Count 4.76 M/mm3 (4.2-5.4); Red Cell Distribution Width 15.8 % (11.5-14.5); White Blood Count 14.7 K/mm3 (4.5-10.0)
[2024-05-24 11:01] LABS: Cholesterol 118 mg/dL (0-200); HDL Direct 56 mg/dL; Triglycerides 85 mg/dL (<150)
--- OUTSIDE RECORDS SUMMARY | 2024-05-24 11:01 | XMS_ITS | Encounter Summary ---
Author Organization [facility] Address [address] [address] Phone Care Team Providers Care Bus Mechanic Name Role Phone Tito Hoyos MD Primary Care Provider [phone] Reason for Visit * Reason Comments Med Refill Encounter Details Date Type Department Care Team (Late st Contact Info) Description 03/18/2021 Refill [facility] Nephrology and Hypertension [address] [place] [address], [address] [place], [place] [phone] Lisette Cao MD [address] [facility], [address] [place] [address] Social History Tobacco Use Types Packs/Day Years [...] on filedocumented in this encounter Care Teams Bus Mechanic Relationship Specialty Start Date End Date Tito Hoyos MD [address] [place] [address] PCP - General Family Medicine 12/05/18 documented as of this encounter
--- OUTSIDE RECORDS SUMMARY | 2024-05-24 11:01 | XMS_ITS | Encounter Summary ---
Author Organization [facility] Address [address] [address] Phone Care Team Providers Care Hospitality Team Member Name Role Phone Tito Hoyos MD Primary Care Provider [phone] Reason for Visit * Reason Comments Med Refill Encounter Details Date Type Department Care Team (Late st Contact Info) Description 11/29/2019 Refill [facility] Nephrology and Hypertension [address] [place] [address], [address] [place], [place] [phone] Lisette Cao MD [address] [facility], [address] [place] [address] Social History Tobacco Use Types Packs/Day Years [...] on filedocumented in this encounter Care Teams Hospitality Team Member Relationship Specialty Start Date End Date Tito Hoyos MD [address] [place] [address] PCP - General Family Medicine 12/05/18 documented as of this encounter
--- OUTSIDE RECORDS SUMMARY | 2024-05-24 11:01 | XMS_ITS | Encounter Summary ---
Author Organization [facility] Address [address], [place] [address] Phone Care Team Providers Care Compliance Administrator Name Role Phone Tito Hoyos MD Primary Care Provider [phone] Reason for Visit * Reason Comments Med Refill Encounter Details Date Type Department Care Team (Late st Contact Info) Description 03/18/2021 Refill [facility] Nephrology and Hypertension [address] [place] [address], [address] [place], [place] [phone] Lisette Cao MD [address] [facility], [address] [place] [address] Social History Tobacco Use Types Packs/Day Years [...] on filedocumented in this encounter Care Teams Compliance Administrator Relationship Specialty Start Date End Date Tito Hoyos MD [address] [place] [address] PCP - General Family Medicine 12/05/18 documented as of this encounter
--- OUTSIDE RECORDS SUMMARY | 2024-05-24 11:01 | XMS_ITS | Encounter Summary ---
Author Organization [facility] Address [address] [place] [address] Phone Care Team Providers Care Bible Teacher Name Role Phone Tito Hoyos MD Primary Care Provider [phone] Reason for Visit * Reason Comments Med Refill Encounter Details Date Type Department Care Team (Late st Contact Info) Description 06/28/2018 Refill [facility] Nephrology and Hypertension [facility], [place] [address] Lisette Cao MD [facility], [address] [place] [address] Social History Tobacco Use Types Packs/Day Years [...] on filedocumented in this encounter Care Teams Bible Teacher Relationship Specialty Start Date End Date Tito Hoyos MD [address] [place] [address] PCP - General Family Medicine 12/05/18 documented as of this encounter
--- OUTSIDE RECORDS SUMMARY | 2024-05-24 11:01 | XMS_ITS | Encounter Summary ---
Author Organization [facility] Address [address] [address] Phone Care Team Providers Care Home Health Occupational Therapist Name Role Phone Tito Hoyos MD Primary Care Provider [phone] Reason for Visit * Reason Comments Med Refill Encounter Details Date Type Department Care Team (Late st Contact Info) Description 07/18/2018 Refill [facility] Nephrology and Hypertension [address] [place] [address], [address] [place], [place] [address] Lisette Cao MD [address] [facility], [address] [place] [address] Social History Tobacco Use Types Packs/Day Years [...] on filedocumented in this encounter Care Teams Home Health Occupational Therapist Relationship Specialty Start Date End Date Tito Hoyos MD [address] [place] [address] PCP - General Family Medicine 12/05/18 documented as of this encounter
--- OUTSIDE RECORDS SUMMARY | 2024-05-24 11:01 | XMS_ITS | Encounter Summary ---
Author Organization [facility] Address [address], [place] [address] Phone Care Team Providers Care Title Agent Name Role Phone Tito Hoyos MD Primary Care Provider [phone] Reason for Visit * Reason Comments Med Refill Encounter Details Date Type Department Care Team (Late st Contact Info) Description 06/13/2018 Refill [facility] Nephrology and Hypertension [address] [place] [address], [address] [place], [place] [address] Lisette Cao MD [address] [facility], [address] [place] [address] Social History Tobacco Use Types Packs/Day Years [...] on filedocumented in this encounter Care Teams Title Agent Relationship Specialty Start Date End Date Tito Hoyos MD [address] [place] [address] PCP - General Family Medicine 12/05/18 documented as of this encounter
--- OUTSIDE RECORDS SUMMARY | 2024-05-24 11:01 | XMS_ITS | Clinical Summary ---
Author Organization [facility] Address [address] [address] Care Team Providers Care Materials Specialist Name Role Phone Farhad Marshall MD Primary Care Provider [phone] Allergies Active Allergy Reactions Criticality Noted Date [...] STL ABSTRACTION Provider, Abstract 04/17/2024 10:00 AM CLIENT SUCCESS MANAGER Telephone Check Up [facility] Oncology and Hematology [facility] [address] [place] [address] Eric Ricardo MD Leukocytosis, unspecified type (Primary Dx) 04/17/2024 External Device Data STL ABSTRACTION Provider, Abstract 04/16/2024 Abstract [facility] Oncology and Hematology - [address] [place] [address] Eric Ricardo MD 04/16/2024 Orders Only [facility] Oncology and Hematology - [address] [place] [address] Eric Ricardo MD 03/29/2024 Orders Only [facility] Oncology and Hematology - [address] [place] [address] Eric Ricardo MD 03/28/2024 Abstract [facility] Oncology and Hematology - [address] [place] [address] Eric Ricardo MD 03/27/2024 External Device Data STL ABSTRACTION Provider, Abstract 03/27/2024 Orders Only [facility] Oncology and Hematology - [address] [place] [address] Eric Ricardo MD 03/26/2024 External Device Data STL ABSTRACTION Provider, Abstract 03/21/2024 External Device Data STL ABSTRACTION Provider, Abstract 03/19/2024 1:30 PM CLIENT SUCCESS MANAGER Office Visit [facility] Oncology and Hematology [facility] [address] [facility] [address] [place] [address] Eric Ricardo MD Leukocytosis, unspecified [...] on file Legal Sex Female 12:27 PM CLIENT SUCCESS MANAGER Gender Identity Not on file Sexual Orientation Not on file Last Filed Vital Signs Vital Sign Reading Time Taken Comments Blood Pressure 121/81 03/19/2024 1:59 PM CLIENT SUCCESS MANAGER Pulse 102 03/19/2024 1:59 PM CLIENT SUCCESS MANAGER Temperature 36.8 C (98.3 F) 03/19/2024 1:59 PM CLIENT SUCCESS MANAGER Respiratory Rate - - Oxygen Saturation 95% 03/19/2024 1:59 PM CLIENT SUCCESS MANAGER Inhaled Oxygen Concentration - - Weight 71.2 kg (157 lb) 03/19/2024 1:59 PM CLIENT SUCCESS MANAGER Height 154.9 cm (5' 1 ) 03/19/2024 1:59 PM CLIENT SUCCESS MANAGER Body Mass Index 29.66 03/19/2024 1:59 PM CLIENT SUCCESS MANAGER Plan of Treatment Upcoming Encounters Date Type Department Care Team (Late st Contact Info) Description 07/19/2024 9:30 AM CDT Office Visit [facility] Oncology and Hematology [address] [facility] [address] [place] [address] Eric Ricardo MD [address] [facility] [address] [place] [address] Health Maintenance Due Date Last [...] 05/19/2019 INFLUENZA VACCINE (#1) 2023 [place] Prev entative Visit/Annual Wellness Visit 02/28/2024 Procedures Procedure Name Priority Date/Time Associated Diagnosis Comments FLOW CYTOMETRY REPORT Routine 03/27/2024 10:43 AM CLIENT SUCCESS MANAGER COMPREHENSIVE METABOLIC PANEL Routine 03/27/2024 10:36 AM CLIENT SUCCESS MANAGER COMPREHENSIVE METABOLIC PANEL Routine 03/26/2024 1:20 PM CLIENT SUCCESS MANAGER CBC WITH DIFFERENTIAL Routine 03/26/2024 1:10 PM CLIENT SUCCESS MANAGER COMPREHENSIVE METABOLIC PANEL Routine 03/26/2024 12:38 PM CLIENT SUCCESS MANAGER from Last 3 Months Results * FLOW CYTOMETRY REPORT (03/27/2024 10:43 AM CLIENT SUCCESS MANAGER) us Eric Ricardo MD PATHOLOGY/CYTOLOGY ORDERABLES F inal Result * COMPREHENSIVE METABOLIC PANEL (03/27/2024 10:36 AM CLIENT SUCCESS MANAGER) Only the most recent of3 resultswithin the time period is included. Blood us Eric Ricardo MD CHEMISTRY ORDERABLES Final Resu lt * CBC WITH DIFFERENTIAL (03/26/2024 1:10 PM CLIENT SUCCESS MANAGER) Blood Eric Ricardo MD HEMATOLOGY ORDERABLES Final Res ult from Last 3 Months Insurance [facility] Address: [address] [address] Care Teams Materials Specialist Relationship Specialty Start Date End Date Farhad Marshall MD [address] [place] [address] PCP - General Family Practice 01/19/24
--- OUTSIDE RECORDS SUMMARY | 2024-05-24 11:01 | XMS_ITS | Encounter Summary ---
Author Organization [facility] Address [address], [place] [address] Phone Care Team Providers Care Dish Maker Name Role Phone Tito Hoyos MD Primary Care Provider [phone] Reason for Visit * Reason Comments Med Refill Encounter Details Date Type Department Care Team (Late st Contact Info) Description 07/05/[address] [facility] Nephrology and Hypertension [address] [place] [address], [address] [place], [place] [phone] Lisette Cao MD [address] [facility], [address] [place] [address] Social History Tobacco Use Types Packs/Day Years [...] on filedocumented in this encounter Care Teams Dish Maker Relationship Specialty Start Date End Date Tito Hoyos MD [address] [place] [address] PCP - General Family Medicine 12/05/18 documented as of this encounter
--- OUTSIDE RECORDS SUMMARY | 2024-05-24 11:01 | XMS_ITS | Continuity of Care Document ---
Author Organization [facility] Address [address] [facility] [address] [place] [address] Phone Care Team Providers Care Vpk Teacher Name Role Phone Birch OD, Turner Unavailable Unavailable Procedures Procedure Date Eye Exam & Treatment Refraction Advance Directives Directive Yes / No Effective Date File Name No Information Encounters Encounter Description Practice Location Reason(s) For Visit Diagnoses Date Provider Providers Copied on Encounter [facility], [address], [place], [place], [id number], [place] tel:[phone] [facility] No Information 0 4-201 0 Birch OD Turner. [address] , [address], [place], [address], [place]. tel:[phone] Family History Family Member Type Diagnosis Age At Onset No Information Payers Payer name Insurance type Covered green party ID Authoriza tion(s) Medicare [facility] [id number] Social History Type Description Quantity Date Captured [...]
--- OUTSIDE RECORDS SUMMARY | 2024-05-24 11:01 | XMS_ITS | Encounter Summary ---
Author Organization [facility] Address [address] [place] [address] Phone Care Team Providers Care Roll Scale Man Name Role Phone Tito Hoyos MD Primary Care Provider [phone] Reason for Visit * Reason Comments Med Refill Encounter Details Date Type Department Care Team (Late st Contact Info) Description 06/29/2018 Refill [facility] Nephrology and Hypertension [facility] [facility], [place] [address] Lsiette Cao MD [facility], [address] [place] [address] Social History Tobacco Use Types Packs/Day Years [...] on filedocumented in this encounter Care Teams Roll Scale Man Relationship Specialty Start Date End Date Tito Hoyos MD [address] [place] [address] PCP - General Family Medicine 12/05/18 documented as of this encounter
--- OUTSIDE RECORDS SUMMARY | 2024-05-24 11:01 | XMS_ITS | Encounter Summary ---
Author Organization [facility] Address [address], [place] [address] Phone Care Team Providers Care Therapist Phys Name Role Phone Tito Hoyos MD Primary Care Provider [phone] Reason for Visit * Reason Comments Med Refill Encounter Details Date Type Department Care Team (Late st Contact Info) Description 12/26/2020 Refill [facility] Nephrology and Hypertension [address] [place] [address], [address] [place], [place] [phone] Lisette Cao MD [address] [facility], [address] [place] [address] Social History Tobacco Use Types Packs/Day Years [...] on filedocumented in this encounter Care Teams Therapist Phys Relationship Specialty Start Date End Date Tito Hoyos MD [address] [place] [address] PCP - General Family Medicine 12/05/18 documented as of this encounter
--- OUTSIDE RECORDS SUMMARY | 2024-05-24 11:01 | XMS_ITS | Clinical Summary ---
Author Organization [facility] Address [address], [place] [address] Phone Care Team Providers Care Senior Cytogenetics Laboratory Director Name Role Phone Tito Hoyos MD Primary Care Provider [phone] Allergies Active Allergy Reactions Criticality Noted Date [...] Advance Directives For more information, please contact: [phone] (Available ) Documents on File Type Date Recorded Patient Regional Sales Executive Expl anation Power of Supervisor Metal [employer]ans 06/16/2018 3:03 PM Ely [id number] Care Teams Senior Cytogenetics Laboratory Director Relationship Specialty Start Date End Date Tito Hoyos MD [address] [place] [address] PCP - General Family Medicine 12/05/18
--- OUTSIDE RECORDS SUMMARY | 2024-05-24 11:01 | XMS_ITS | Clinical Summary ---
Author Organization [facility] - [facility]Y [facility] Address [address] [place] [address] Phone Care Team Providers Care Tobacco Dipper Name Role Phone Farhad Marshall MD Primary Care Provider [phone] Rupal Taveras APRN, OIL WELL GUN PERFORATOR OPERATOR Unavailable [phone] Allergies Active Allergy Reactions Criticality Noted Date [...] Comments Blood Pressure 120/74 04/17/2023 9:28 AM SINGE MACHINE OPERATOR Pulse 91 04/17/2023 9:28 AM SINGE MACHINE OPERATOR Temperature 36.4 C (97.6 F) 04/17/2023 9:28 AM SINGE MACHINE OPERATOR Respiratory Rate 18 04/17/2023 9:28 AM SINGE MACHINE OPERATOR Oxygen Saturation 96% 04/17/2023 9:28 AM SINGE MACHINE OPERATOR Inhaled Oxygen Concentration - - Weight 82.7 kg (182 lb 6.4 oz) 04/17/2023 9:28 A M SINGE MACHINE OPERATOR Height 154.9 cm (5' 1 ) 04/17/2023 9:28 AM SINGE MACHINE OPERATOR Body Mass Index 34.46 04/17/2023 9:28 AM SINGE MACHINE OPERATOR Plan of Treatment Health Maintenance [...] topic Insurance MEDICARE C WELLCARE Care Teams Tobacco Dipper Relationship Specialty Start Date End Date Farhad Marshall MD PCP - General Family Medicine 12/22/22 Rupal Taveras, EVP AND CHIEF OPERATING OFFICER, OIL WELL GUN PERFORATOR OPERATOR [address] [place] [address] Nurse Practitioner Advanced Practice Nurse 12/22/22
[2024-05-24 11:11] LABS: LDL Cholesterol Direct 40 mg/dL
[2024-05-24 11:14] LABS: Estimated Glomerular Filt Rate 55
== END 2024-05-24 10:06 | disposition home or self-care (01) ==
PROVIDERS: PCP Family Medicine; Visit Provider Nurse Practitioner Family
DX: R68.89 Other general symptoms and signs (principal); Z79.899 Other long term (current) drug therapy; S91.109A Unspecified open wound of unspecified toe(s) without damage to nail, initial encounter; X58.XXXA Exposure to other specified factors, initial encounter; I70.0 Atherosclerosis of aorta
CPT/HCPCS: 36415; 73660; 73706; 80061; 83036; 85027; Q9967

== ENCOUNTER 2024-05-28 09:25 | Outpatient (RCR) | payer MEDICARE, SELFPAY ==
[2024-05-28 10:00] VITALS: BMI 28.8
== END 2024-08-12 08:57 | disposition home or self-care (01) ==
LOC: ANHWOC 09:25
PROVIDERS: PCP Family Medicine; Visit Provider Family Medicine
DX: S91.109D Unspecified open wound of unspecified toe(s) without damage to nail, subsequent encounter (principal)
CPT/HCPCS: 99214; G0463

== ENCOUNTER 2024-06-17 13:19 | Outpatient (CLI) | payer MEDICARE, SELFPAY ==
--- NOTE | ~2024-06-17 | US_ITS ---
US transvaginal Ordering provider: Una Salvador APRN History: . R93.89 - Abnormal findings on diagnostic imaging of other... . Comparison: None. Technique: endovaginal ultrasound of the pelvis (Doppler ultrasound interrogation techniques used as needed for this exam.) FINDINGS: CERVIX: Normal. UTERUS: Measures 4.1x 2x 4.2 cm in length which is within normal limits and is anteverted. Fibroid i s seen measuring 1.6 cm with central hypoechoic area which may be a necrotic changes.. ENDOMETRIUM: C ystic area seen in the endometrium. The endometrium with a cystic area measures 14 mm. Without the cy stic area measures 9.2 mm. . CUL DE SAC: No free fluid. RIGHT OVARY: Normal in size measuring 1.8x 0.9x 1.6 cm. Normal echotexture. Doppler vascular flow pre sent. LEFT OVARY: Normal in size measuring 1.1x 0.7x 1.3 cm. Normal echotexture. Doppler vascular flow pres ent. ADNEXA: Normal. No mass. IMPRESSION: Hypoechoic area in the endometrium which may be a cyst or fluid. Further evaluation to exclude endome trial carcinoma is advised. Fibroid uterus seen posteriorly with cystic area which may indicate necro sis.. Otherwise, normal pelvic ultrasound. Reviewed, dictated and finalized at location A. IMPRESSION: Hypoechoic area in the endometrium which may be a cyst or fluid. Further evalua tion to exclude endometrial carcinoma is advised. Fibroid uterus seen posterior ly with cystic area which may indicate necrosis.. Otherwise, normal pelvic ultr asound.
--- OUTSIDE RECORDS SUMMARY | 2024-06-17 14:59 | XMS_ITS | Encounter Summary ---
Author Organization [facility] Address [address] [address] Phone Care Team Providers Care Raw Scales Operator Name Role Phone Tito Hoyos MD Primary Care Provider [phone] Reason for Visit * Reason Comments Med Refill Encounter Details Date Type Department Care Team (Late st Contact Info) Description 12/26/2020 Refill [facility] Nephrology and Hypertension [address] [place] [address], [address] [place], [place] [id number] Lisette Cao MD [facility], [address] [place] [address] Social History Tobacco Use Types Packs/Day Years Used Date Smoking Tobacco: Every Day Smokeless Tobacco: Never Comments:Smoking History Pac ks/day: 1 pack a day Alcohol Use Standard Drinks/Week Comments No 0 (1 standard drink = 0.6 oz pur e alcohol) Comments Unknown Sex and Gender Information Value Date Recorded Sex Assigned at Not on file Legal Sex Female 9:35 AM MST Gender Identity Not on file Sexual Orientation Not on file documented as of this encounter Plan of Treatment Not on file documented as of this encounter Visit Diagnoses Not on filedocumented in this encounter Care Teams Raw Scales Operator Relationship Specialty Start Date End Date Tito Hoyos MD [address] [place] [address] PCP - General Family Medicine 12/05/18 documented as of this encounter
--- OUTSIDE RECORDS SUMMARY | 2024-06-17 14:59 | XMS_ITS | Encounter Summary ---
Author Organization [facility] Address [address] [address] Phone Care Team Providers Care Electronics Specialist Name Role Phone Tito Hoyos MD Primary Care Provider [phone] Reason for Visit * Reason Comments Med Refill Encounter Details Date Type Department Care Team (Late st Contact Info) Description 03/18/2021 Refill [facility] Nephrology and Hypertension [address] [place] [address], [address] [place], [place] [id number] Lisette Cao MD [facility], [address] [place] [address] Social History Tobacco Use Types Packs/Day Years [...] on filedocumented in this encounter Care Teams Electronics Specialist Relationship Specialty Start Date End Date Tito Hoyos MD [address] [place] [address] PCP - General Family Medicine 12/05/18 documented as of this encounter
--- OUTSIDE RECORDS SUMMARY | 2024-06-17 14:59 | XMS_ITS | Clinical Summary ---
Author Organization [facility] Address [address] [place] [address] Phone Care Team Providers Care Electrocardiograph Technician Name Role Phone Farhad Marshall MD Primary Care Provider [phone] Rupal Taveras APRN, FIRE ALARM REPAIRER Unavailable [phone] Allergies Active Allergy Reactions Criticality Noted Date [...] Comments Blood Pressure 120/74 04/17/2023 9:28 AM BEAMER HAND Pulse 91 04/17/2023 9:28 AM BEAMER HAND Temperature 36.4 C (97.6 F) 04/17/2023 9:28 AM BEAMER HAND Respiratory Rate 18 04/17/2023 9:28 AM BEAMER HAND Oxygen Saturation 96% 04/17/2023 9:28 AM BEAMER HAND Inhaled Oxygen Concentration - - Weight 82.7 kg (182 lb 6.4 oz) 04/17/2023 9:28 A M BEAMER HAND Height 154.9 cm (5' 1 ) 04/17/2023 9:28 AM BEAMER HAND Body Mass Index 34.46 04/17/2023 9:28 AM BEAMER HAND Plan of Treatment Health Maintenance Due Date [...] topic Insurance MEDICARE C WELLCARE Care Teams Electrocardiograph Technician Relationship Specialty Start Date End Date Farhad Marshall MD PCP - General Family Medicine 12/22/22 Rupal Taveras, CAMP COUNSELOR, FIRE ALARM REPAIRER [address] [place] [address] Nurse Practitioner Advanced Practice Nurse 12/22/22
--- OUTSIDE RECORDS SUMMARY | 2024-06-17 15:00 | XMS_ITS | Continuity of Care Document ---
Author Organization [facility] Address [address] [place] [address] Phone Care Team Providers Care Test Hole Driller Name Role Phone Birch OD, Turner Unavailable Unavailable Procedures Procedure Date Eye Exam & Treatment Refraction Advance Directives Directive Yes / No Effective Date File Name No Information Encounters Encounter Description Practice Location Reason(s) For Visit Diagnoses Date Provider Providers Copied on Encounter [facility], [id number] [place] [address] [address], [place], [place], [id number], [place] tel:[phone] [facility] No Information [phone] Birch OD Turner. [address] , [address], [place], [address], [place]. tel:[phone] Family History Family Member Type Diagnosis Age At Onset No Information Payers Payer name Insurance type Covered democrat ID Authoriza tion(s) Medicare [facility] [id number] Social History Type Description Quantity Date Captured [...]
--- OUTSIDE RECORDS SUMMARY | 2024-06-17 15:00 | XMS_ITS | Encounter Summary ---
Author Organization [facility] Address [address], [place] [address] Phone Care Team Providers Care Ground Systems Engineer Name Role Phone Tito Hoyos MD Primary Care Provider [phone] Reason for Visit * Reason Comments Med Refill Encounter Details Date Type Department Care Team (Late st Contact Info) Description 06/13/2018 Refill [facility] Nephrology and Hypertension [address] [place] [address], [address] [place], [place] [phone] Lisette Cao MD [address] [facility], [address] [place] [address] Social History Tobacco Use Types Packs/Day Years [...] Date Tito Hoyos MD [address] [place] [address] PCP - General Family Medicine 12/05/18 documented as of this encounter
--- OUTSIDE RECORDS SUMMARY | 2024-06-17 15:00 | XMS_ITS | Encounter Summary ---
Author Organization [facility] Address [address] [address] Phone Care Team Providers Care Road Driver Name Role Phone Tito Hoyos MD Primary Care Provider [phone] Reason for Visit * Reason Comments Med Refill Encounter Details Date Type Department Care Team (Late st Contact Info) Description 11/29/2019 Refill [facility] Nephrology and Hypertension [address] [place] [address], [address] [place], [place] [phone] Lisette Cao MD [address] [facility], [address] [place] [address] Social History Tobacco Use Types Packs/Day Years [...] on filedocumented in this encounter Care Teams Road Driver Relationship Specialty Start Date End Date Tito Hoyos MD [address] [place] [address] PCP - General Family Medicine 12/05/18 documented as of this encounter
--- OUTSIDE RECORDS SUMMARY | 2024-06-17 15:00 | XMS_ITS | Encounter Summary ---
Author Organization [facility] Address [address], [place] [address] Phone Care Team Providers Care Senior Database Programmer Name Role Phone Tito Hoyos MD Primary Care Provider [phone] Reason for Visit * Reason Comments Med Refill Encounter Details Date Type Department Care Team (Late st Contact Info) Description 06/29/2018 Refill [facility] Nephrology and Hypertension [facility], [place] [address] Lisette Cao MD [facility], [address] [place] [address] Social History Tobacco Use Types Packs/Day Years [...] filedocumented in this encounter Care Teams Senior Database Programmer Relationship Specialty Start Date End Date Tito Hoyos MD [address] [place] [address] PCP - General Family Medicine 12/05/18 documented as of this encounter
--- OUTSIDE RECORDS SUMMARY | 2024-06-17 15:00 | XMS_ITS | Encounter Summary ---
Author Organization [facility] Address [address], [place] [address] Phone Care Team Providers Care Learning Program Manager Name Role Phone Tito Hoyos MD Primary Care Provider [phone] Reason for Visit * Reason Comments Med Refill Encounter Details Date Type Department Care Team (Late st Contact Info) Description 07/18/2018 Refill [facility] Nephrology and Hypertension [address] [place] [address], [address] [place], [place] [phone] Lisette Cao MD [address] [facility], [address] [place] [address] Social History Tobacco Use Types Packs/Day Years [...] on filedocumented in this encounter Care Teams Learning Program Manager Relationship Specialty Start Date End Date Tito Hoyos MD [address] [place] [address] PCP - General Family Medicine 12/05/18 documented as of this encounter
--- OUTSIDE RECORDS SUMMARY | 2024-06-17 15:00 | XMS_ITS | Encounter Summary ---
Author Organization [facility] Address [address], [place] [address] Phone Care Team Providers Care Religion Teacher Name Role Phone Tito Hoyos MD Primary Care Provider [phone] Reason for Visit * Reason Comments Med Refill Encounter Details Date Type Department Care Team (Late st Contact Info) Description 03/18/2021 Refill [facility] Nephrology and Hypertension [address] [place] [address], [address] [place], [place] [phone] Lisette Cao MD [facility], [address] [place] [address] Social History Tobacco Use Types Packs/Day Years [...] on filedocumented in this encounter Care Teams Religion Teacher Relationship Specialty Start Date End Date Tito Hoyos MD [address] [place] [address] PCP - General Family Medicine 12/05/18 documented as of this encounter
--- OUTSIDE RECORDS SUMMARY | 2024-06-17 15:00 | XMS_ITS | Encounter Summary ---
Author Organization [facility] Address [address], [place] [address] Phone Care Team Providers Care Independent Video Producer Name Role Phone Tito Hoyos MD Primary Care Provider [phone] Reason for Visit * Reason Comments Med Refill Encounter Details Date Type Department Care Team (Late st Contact Info) Description 07/05/2021 Refill [facility] Nephrology and Hypertension [address] [place] [address], [address] [place], [place] [address] Lisette Cao MD [facility]4 [facility], [address] [place] [address] Social History Tobacco Use Types Packs/Day Years [...] on filedocumented in this encounter Care Teams Independent Video Producer Relationship Specialty Start Date End Date Tito Hoyos MD [address] [place] [address] PCP - General Family Medicine 12/05/18 documented as of this encounter
--- OUTSIDE RECORDS SUMMARY | 2024-06-17 15:00 | XMS_ITS | Clinical Summary ---
Author Organization [facility] Address [address] [place] [address] Care Team Providers Care Beauty Specialist Name Role Phone Farhad Marshall MD Primary Care Provider [phone] Allergies Active Allergy Reactions Criticality Noted Date [...] STL ABSTRACTION Provider, Abstract 04/17/2024 10:00 AM CONTENT WRITER Telephone Check Up [facility] Oncology and Hematology [facility] [address] [place] [address] Eric Ricardo MD Leukocytosis, unspecified type (Primary Dx) 04/17/2024 External Device Data STL ABSTRACTION Provider, Abstract 04/16/2024 Abstract [facility] Oncology and Hematology - [address] [place] [address] Eric Ricardo MD 04/16/2024 Orders Only [facility] Oncology and Hematology - [address] [place] [address] Eric Ricardo MD 03/29/2024 Orders Only [facility] Oncology and Hematology - [address] [place] [address] Eric Ricardo MD 03/28/2024 Abstract [facility] Oncology and Hematology - [address] [place] [address] Eric Ricardo MD 03/27/2024 External Device Data STL ABSTRACTION Provider, Abstract 03/27/2024 Orders Only [facility] Oncology and Hematology - [address] [place] [address] Eric Ricardo MD 03/26/2024 External Device Data STL ABSTRACTION Provider, Abstract 03/21/2024 External Device Data STL ABSTRACTION Provider, Abstract 03/19/2024 1:30 PM CONTENT WRITER Office Visit [facility] Oncology and Hematology [facility] [address] [facility] [address] [facility] [address] [place] [address] Eric Ricardo MD Leukocytosis, unspecified [...] on file Legal Sex Female 12:27 PM CONTENT WRITER Gender Identity Not on file Sexual Orientation Not on file Last Filed Vital Signs Vital Sign Reading Time Taken Comments Blood Pressure 121/81 03/19/2024 1:59 PM CONTENT WRITER Pulse 102 03/19/2024 1:59 PM CONTENT WRITER Temperature 36.8 C (98.3 F) 03/19/2024 1:59 PM CONTENT WRITER Respiratory Rate - - Oxygen Saturation 95% 03/19/2024 1:59 PM CONTENT WRITER Inhaled Oxygen Concentration - - Weight 71.2 kg (157 lb) 03/19/2024 1:59 PM CONTENT WRITER Height 154.9 cm (5' 1 ) 03/19/2024 1:59 PM CONTENT WRITER Body Mass Index 29.66 03/19/2024 1:59 PM CONTENT WRITER Plan of Treatment Upcoming Encounters Date Type Department Care Team (Late st Contact Info) Description 07/19/2024 9:30 AM CDT Office Visit [facility] Oncology and Hematology [address] [facility] [address] [place] [address] Eric Ricardo MD [address] [facility] [address] [place] [address] Health Maintenance Due Date Last [...] 05/19/2019 INFLUENZA VACCINE (#1) 2023 [place] Prev entative Visit/Annual Wellness Visit 02/28/2024 Procedures Procedure Name Priority Date/Time Associated Diagnosis Comments FLOW CYTOMETRY REPORT Routine 03/27/2024 10:43 AM CONTENT WRITER COMPREHENSIVE METABOLIC PANEL Routine 03/27/2024 10:36 AM CONTENT WRITER COMPREHENSIVE METABOLIC PANEL Routine 03/26/2024 1:20 PM CONTENT WRITER CBC WITH DIFFERENTIAL Routine 03/26/2024 1:10 PM CONTENT WRITER COMPREHENSIVE METABOLIC PANEL Routine 03/26/2024 12:38 PM CONTENT WRITER from Last 3 Months Results * FLOW CYTOMETRY REPORT (03/27/2024 10:43 AM CONTENT WRITER) us Eric Ricardo MD PATHOLOGY/CYTOLOGY ORDERABLES F inal Result * COMPREHENSIVE METABOLIC PANEL (03/27/2024 10:36 AM CONTENT WRITER) Only the most recent of3 resultswithin the time period is included. Blood us Eric Ricardo MD CHEMISTRY ORDERABLES Final Resu lt * CBC WITH DIFFERENTIAL (03/26/2024 1:10 PM CONTENT WRITER) Blood Eric Ricardo MD HEMATOLOGY ORDERABLES Final Res ult from Last 3 Months Insurance [facility] MCR Care Teams Beauty Specialist Relationship Specialty Start Date End Date Farhad Marshall MD [address] [place] [address] PCP - General Family Practice 01/19/24
--- OUTSIDE RECORDS SUMMARY | 2024-06-17 15:00 | XMS_ITS | Clinical Summary ---
Author Organization [facility] Address [address], [place] [address] Phone Care Team Providers Care Artists' Booking Representative Name Role Phone Tito Hoyos MD Primary Care Provider [phone] Allergies Active Allergy Reactions Criticality Noted Date Comments Dexamethasone Ibuprofen Penicillins Prednisone Pregabalin Varenicline Medications atorvastatin (LIPITOR) 20 MG tablet 1 tab/cap [...] 1 tab/cap tid 0 11/09/2015 Active lisinopril (PRINIVIL,ZESTRI L) 10 MG tablet TAKE 1 TABLET BY MOUTH EVERY DAY 30 tablet 06/13/2018 Active raNITIdine (ZANTAC) 150 MG capsule 1 09/26/2018 Active carisoprodol (SOMA) 350 MG tablet TK 1 T PO TID 08/12/2019 Active famotidine (PEPCID) 40 MG tablet TK 1 T PO D 07/05/2019 Active HYDROcodone-acet aminophen (LORCET PLUS) 10-325 MG per tablet TK [...] Type 2 diabetes mellitus without complication Immunizations Immunization Administration Dates Next Due DTaP, Unspecified 02/27/2010 [...] on file Legal Sex Female 9:35 AM [facility] Gender Identity Not on file Sexual Orientation [...] and Medium Risk (2 of 3 - PPSV23) 11/08/2016 11/09/2015 Influenza Vaccine (Season Ended) 2024 Insurance MEDICARE Advance Directives For more information, please contact: [phone] (7AM - 4PM [facility], 7 days a week) Documents on File Type Date Recorded Patient Test Fixture Assembler Expl anation Power of Transcripter 06/16/2018 3:03 PM Ely [id number] Care Teams Artists' Booking Representative Relationship Specialty Start Date End Date Tito Hoyos MD [address] [place] [address] PCP - General Family Medicine 12/05/18
--- OUTSIDE RECORDS SUMMARY | 2024-06-17 15:00 | XMS_ITS | Encounter Summary ---
Author Organization [facility] Address [address], [place] [address] Phone Care Team Providers Care Glove Pairer Name Role Phone Tito Hoyos MD Primary Care Provider [phone] Reason for Visit * Reason Comments Med Refill Encounter Details Date Type Department Care Team (Late st Contact Info) Description 06/28/2018 Refill [facility] Nephrology and Hypertension [facility], [place] [address] Lisette Cao MD [facility], [address] [place] [address] Social History Tobacco Use Types Packs/Day Years [...] on filedocumented in this encounter Care Teams Glove Pairer Relationship Specialty Start Date End Date Tito Hoyos MD [address] [place] [address] PCP - General Family Medicine 12/05/18 documented as of this encounter
== END 2024-06-17 13:20 | disposition home or self-care (01) ==
PROVIDERS: PCP Family Medicine; Visit Provider Nurse Practitioner Family
DX: R93.89 Abnormal findings on diagnostic imaging of other specified body structures (principal)
CPT/HCPCS: 76830

== ENCOUNTER 2024-06-18 15:53 | Outpatient (CLI) | payer MEDICARE, SELFPAY ==
[2024-06-18 16:22] LABS: Hematocrit 36.8 % (37.0-47.0); Hemoglobin 11.7 g/dL (12.0-15.0); Mean Corpuscular HGB Conc 31.8 g/dl (32-36); Mean Corpuscular Hemoglobin 27.3 pg (26-34); Mean Platelet Volume 9.9 fl (7.4-10.4); Platelet Count Result 481 k/mm3 (150-375); Red Blood Count 4.28 M/mm3 (4.2-5.4); Red Cell Distribution Width 16.2 % (11.5-14.5)
[2024-06-18 16:25] LABS: Add Urine Microscopic? NO; Appearance Urine Clear (Clear); Bilirubin Urine Negative (Negative); Blood Urine Negative (Negative); Color Urine Yellow (Yellow); Glucose Urine UA Negative (Negative); Ketones Urine Negative (Negative); Leukocyte Esterase Ur Negative LEU/UL (Negative); Nitrate Urine Negative (Negative); Protein Urine Negative (Negative); Specific Grav Ur 1.014 (1.001-1.035)
[2024-06-18 16:32] LABS: Alanine Aminotransferase 16 U/L (6-35); Albumin Level 4.6 g/dL (3.5-5.1); Alkaline Phosphatase 78 U/L (38-126); Anion Gap 13 mmol/L (4-12); Aspartate Amino Transferase 23 U/L (14-36); Bilirubin,Total 0.2 mg/dL (0.2-1.3); Blood Urea Nitrogen 20 mg/dL (7-17); Calcium 9.6 mg/dL (8.4-10.2); Carbon Dioxide 20 mmol/L (22-30); Chloride 102 mmol/L (98-107); Estimated Glomerular Filt Rate 60; Glucose 101 mg/dL (65-110); Potassium 4.6 mmol/L (3.4-5.0); Sodium 135 mmol/L (137-145)
--- OUTSIDE RECORDS SUMMARY | 2024-06-18 17:55 | XMS_ITS | Encounter Summary ---
Author Organization [facility] Address [address] [address] Phone Care Team Providers Care Immunochemist Name Role Phone Tito Hoyos MD Primary Care Provider [phone] Reason for Visit * Reason Comments Med Refill Encounter Details Date Type Department Care Team (Late st Contact Info) Description 06/28/2018 Refill [facility] Nephrology and Hypertension [facility], [place] [address] Lisette Cao MD [facility], [address] [place] [address] Social History Tobacco Use Types Packs/Day Years [...] on filedocumented in this encounter Care Teams Immunochemist Relationship Specialty Start Date End Date Tito Hoyos MD [address] [place] [address] PCP - General Family Medicine 12/05/18 documented as of this encounter
--- OUTSIDE RECORDS SUMMARY | 2024-06-18 17:55 | XMS_ITS | Encounter Summary ---
Author Organization [facility] Address [address] [address] Phone Care Team Providers Care Vending Technician Name Role Phone Tito Hoyos MD Primary Care Provider [phone] Reason for Visit * Reason Comments Med Refill Encounter Details Date Type Department Care Team (Late st Contact Info) Description 07/18/[address] [facility] Nephrology and Hypertension [address] [place] [address], [address] [place], [place] [address] Lisette Cao MD [address] [facility], [address] [place] [address] Social History Tobacco Use Types Packs/Day Years [...] on filedocumented in this encounter Care Teams Vending Technician Relationship Specialty Start Date End Date Tito Hoyos MD [address] [place] [address] PCP - General Family Medicine 12/05/18 documented as of this encounter
--- OUTSIDE RECORDS SUMMARY | 2024-06-18 17:55 | XMS_ITS | Encounter Summary ---
Author Organization [facility] Address [address], [place] [address] Phone Care Team Providers Care Etl Analyst Name Role Phone Tito Hoyos MD Primary Care Provider [phone] Reason for Visit * Reason Comments Med Refill Encounter Details Date Type Department Care Team (Late st Contact Info) Description 11/29/2019 Refill [facility] Nephrology and Hypertension [address] [place] [address], [address] [place], [place] [address] Lisette Cao MD [address] [facility], [address] [place] [address] Social History Tobacco Use Types Packs/Day Years [...] on filedocumented in this encounter Care Teams Etl Analyst Relationship Specialty Start Date End Date Tito Hoyos MD [address] [place] [address] PCP - General Family Medicine 12/05/18 documented as of this encounter
--- OUTSIDE RECORDS SUMMARY | 2024-06-18 17:55 | XMS_ITS | Clinical Summary ---
Author Organization [facility] Address [address] [place] [address] Phone Care Team Providers Care Wheelabrator Operator Name Role Phone Farhad Marshall MD Primary Care Provider [phone] Rupal Taveras APRN, EQUIPMENT OR MACHINERY CLEANER Unavailable [phone] Allergies Active Allergy Reactions Criticality Noted Date [...] Comments Blood Pressure 120/74 04/17/2023 9:28 AM ZINC PLATING MACHINE OPERATOR Pulse 91 04/17/2023 9:28 AM ZINC PLATING MACHINE OPERATOR Temperature 36.4 C (97.6 F) 04/17/2023 9:28 AM ZINC PLATING MACHINE OPERATOR Respiratory Rate 18 04/17/2023 9:28 AM ZINC PLATING MACHINE OPERATOR Oxygen Saturation 96% 04/17/2023 9:28 AM ZINC PLATING MACHINE OPERATOR Inhaled Oxygen Concentration - - Weight 82.7 kg (182 lb 6.4 oz) 04/17/2023 9:28 A M ZINC PLATING MACHINE OPERATOR Height 154.9 cm (5' 1 ) 04/17/2023 9:28 AM ZINC PLATING MACHINE OPERATOR Body Mass Index 34.46 04/17/2023 9:28 AM ZINC PLATING MACHINE OPERATOR Plan of Treatment Health Maintenance [...] complete this topic Insurance [place] [address] Care Teams Wheelabrator Operator Relationship Specialty Start Date End Date Farhad Marshall MD PCP - General Family Medicine 12/22/22 Rupal Taveras, MEDICAL RECORD CONSULTANT, EQUIPMENT OR MACHINERY CLEANER [address] [place] [address] Nurse Practitioner Advanced Practice Nurse 12/22/22
--- OUTSIDE RECORDS SUMMARY | 2024-06-18 17:55 | XMS_ITS | Continuity of Care Document ---
Author Organization [facility] Address [address] [facility] [address] [place] [address] Phone Care Team Providers Care Gambling Broker Name Role Phone Birch OD, Turner Unavailable Unavailable Procedures Procedure Date Eye Exam & Treatment Refraction Advance Directives Directive Yes / No Effective Date File Name No Information Encounters Encounter Description Practice Location Reason(s) For Visit Diagnoses Date Provider Providers Copied on Encounter [facility], [id number] [place] [address] [address], [place], [place], [id number], [place] tel:[phone] [facility] No Information [phone] Birch OD Turner. [address] , [address], [place], [address], [place]. tel:[phone] Family History Family Member Type Diagnosis Age At Onset No Information Payers Payer name Insurance type Covered constitution party ID Authoriza tion(s) Medicare [facility] [id number] Social History Type Description Quantity Date Captured [...]
--- OUTSIDE RECORDS SUMMARY | 2024-06-18 17:55 | XMS_ITS | Clinical Summary ---
Author Organization [facility] Address [address], [place] [address] Phone Care Team Providers Care Back Joiner Name Role Phone Tito Hoyos MD Primary Care Provider [phone] Allergies Active Allergy Reactions Criticality Noted Date [...] on file Legal Sex Female 9:35 AM [facility] Gender Identity Not on file Sexual [...] Advance Directives For more information, please contact: [phone] (7AM - 4PM [facility], 7 days a week) Documents on File Type Date Recorded Patient Conduit Mechanic Expl anation Power of Rate Manager 06/16/2018 3:03 PM Ely [email or web address] Care Teams Back Joiner Relationship Specialty Start Date End Date Tito Hoyos MD [address] [place] [address] PCP - General Family Medicine 12/05/18
--- OUTSIDE RECORDS SUMMARY | 2024-06-18 17:55 | XMS_ITS | Encounter Summary ---
Author Organization [facility] Address [address] [address] Phone Care Team Providers Care Senior Stereo Compiler Team Lead Name Role Phone Tito Hoyos MD Primary Care Provider [phone] Reason for Visit * Reason Comments Med Refill Encounter Details Date Type Department Care Team (Late st Contact Info) Description 07/05/2021 Refill [facility] Nephrology and Hypertension [address] [place] [address], [address] [place], [place] [phone] Lisette Cao MD [facility], [address] [place] [address] Social History Tobacco Use Types Packs/Day Years [...] filedocumented in this encounter Care Teams Senior Stereo Compiler Team Lead Relationship Specialty Start Date End Date Tito Hoyos MD [address] [place] [address] PCP - General Family Medicine 12/05/18 documented as of this encounter
--- OUTSIDE RECORDS SUMMARY | 2024-06-18 17:55 | XMS_ITS | Encounter Summary ---
Author Organization [facility] Address [address], [place] [address] Phone Care Team Providers Care Karate Instructor Name Role Phone Tito Hoyos MD Primary Care Provider [phone] Reason for Visit * Reason Comments Med Refill Encounter Details Date Type Department Care Team (Late st Contact Info) Description 03/18/2021 Refill [facility] Nephrology and Hypertension [address] [place] [address], [address] [place], [place] [phone] Lisette Cao MD [facility]4 [facility], [address] [place] [address] Social History Tobacco Use Types Packs/Day Years [...] on filedocumented in this encounter Care Teams Karate Instructor Relationship Specialty Start Date End Date Tito Hoyos MD [address] [place] [address] PCP - General Family Medicine 12/05/18 documented as of this encounter
--- OUTSIDE RECORDS SUMMARY | 2024-06-18 17:55 | XMS_ITS | Encounter Summary ---
Author Organization [facility] Address [address], [place] [address] Phone Care Team Providers Care Extraction Supervisor Name Role Phone Tito Hoyos MD Primary Care Provider [phone] Reason for Visit * Reason Comments Med Refill Encounter Details Date Type Department Care Team (Late st Contact Info) Description 12/26/2020 Refill [facility] Nephrology and Hypertension [address] [place] [address], [address] [place], [place] [phone] Lisette Cao MD [facility], [address] [place] [address] Social History Tobacco Use Types Packs/Day Years [...] on filedocumented in this encounter Care Teams Extraction Supervisor Relationship Specialty Start Date End Date Tito Hoyos MD [address] [place] [address] PCP - General Family Medicine 12/05/18 documented as of this encounter
--- OUTSIDE RECORDS SUMMARY | 2024-06-18 17:55 | XMS_ITS | Encounter Summary ---
Author Organization [facility] Address [address], [place] [address] Phone Care Team Providers Care Strip Polisher Name Role Phone Tito Hoyos MD Primary Care Provider [phone] Reason for Visit * Reason Comments Med Refill Encounter Details Date Type Department Care Team (Late st Contact Info) Description 06/13/2018 Refill [facility] Nephrology and Hypertension [address] [place] [address], [address] [place], [place] [phone] Lisette Cao MD [address] [facility], [address] [place] [address] Social History Tobacco Use Types Packs/Day Years [...] on filedocumented in this encounter Care Teams Strip Polisher Relationship Specialty Start Date End Date Tito Hoyos MD [address] [place] [address] PCP - General Family Medicine 12/05/18 documented as of this encounter
--- OUTSIDE RECORDS SUMMARY | 2024-06-18 17:55 | XMS_ITS | Encounter Summary ---
Author Organization [facility] Address [address], [place] [address] Phone Care Team Providers Care Outside Property Agent Name Role Phone Tito Hoyos MD Primary Care Provider [phone] Reason for Visit * Reason Comments Med Refill Encounter Details Date Type Department Care Team (Late st Contact Info) Description 06/29/2018 Refill [facility] Nephrology and Hypertension [facility], [place] [address] Lisette Cao MD [facility], [address] [place] [address] Social History Tobacco Use Types Packs/Day Years [...] on filedocumented in this encounter Care Teams Outside Property Agent Relationship Specialty Start Date End Date Tito Hoyos MD [address] [place] [address] PCP - General Family Medicine 12/05/18 documented as of this encounter
--- OUTSIDE RECORDS SUMMARY | 2024-06-18 17:55 | XMS_ITS | Encounter Summary ---
Author Organization [facility] Address [address], [place] [address] Phone Care Team Providers Care Therapeutic Recreation Leader Name Role Phone Tito Hoyos MD Primary Care Provider [phone] Reason for Visit * Reason Comments Med Refill Encounter Details Date Type Department Care Team (Late st Contact Info) Description 03/18/2021 Refill [facility] Nephrology and Hypertension [address] [place] [address], [address] [place], [place] [address] Lisette Cao MD [facility]4 [facility], [address] [place] [address] Social History Tobacco Use Types Packs/Day Years [...] on filedocumented in this encounter Care Teams Therapeutic Recreation Leader Relationship Specialty Start Date End Date Tito Hoyos MD [address] [place] [address] PCP - General Family Medicine 12/05/18 documented as of this encounter
--- OUTSIDE RECORDS SUMMARY | 2024-06-18 17:56 | XMS_ITS | Clinical Summary ---
Author Organization [facility] Address [address] [place] [address] Care Team Providers Care Certified Nurse Practitioner Name Role Phone Farhad Marshall MD Primary Care Provider [phone] Allergies Active Allergy Reactions Criticality Noted Date [...] STL ABSTRACTION Provider, Abstract 04/17/2024 10:00 AM PLASTIC INSTALLER Telephone Check Up [facility] Oncology and Hematology [facility] [address] [place] [address] Eric Ricardo MD Leukocytosis, unspecified type (Primary Dx) 04/17/2024 External Device Data STL ABSTRACTION Provider, Abstract 04/16/2024 Abstract [facility] Oncology and Hematology - [place] [address] [place] [address] Eric Ricardo MD 04/16/2024 Orders Only [facility] Oncology and Hematology - [place] [address] [place] [address] Eric Ricardo MD 03/29/2024 Orders Only [facility] Oncology and Hematology - [place] [address] [place] [address] Eric Ricardo MD 03/28/2024 Abstract [facility] Oncology and Hematology - [place] [address] [place] [address] Eric Ricardo MD 03/27/2024 External Device Data STL ABSTRACTION Provider, Abstract 03/27/2024 Orders Only [facility] Oncology and Hematology - [place] [address] [place] [address] Eric Ricardo MD 03/26/2024 External Device Data STL ABSTRACTION Provider, Abstract 03/21/2024 External Device Data STL ABSTRACTION Provider, Abstract from Last 3 Months Family History Medical [...] on file Legal Sex Female 12:27 PM PLASTIC INSTALLER Gender Identity Not on file Sexual Orientation Not on file Last Filed Vital Signs Vital Sign Reading Time Taken Comments Blood Pressure 121/81 03/19/2024 1:59 PM PLASTIC INSTALLER Pulse 102 03/19/2024 1:59 PM PLASTIC INSTALLER Temperature 36.8 C (98.3 F) 03/19/2024 1:59 PM PLASTIC INSTALLER Respiratory Rate - - Oxygen Saturation 95% 03/19/2024 1:59 PM PLASTIC INSTALLER Inhaled Oxygen Concentration - - Weight 71.2 kg (157 lb) 03/19/2024 1:59 PM PLASTIC INSTALLER Height 154.9 cm (5' 1 ) 03/19/2024 1:59 PM PLASTIC INSTALLER Body Mass Index 29.66 03/19/2024 1:59 PM PLASTIC INSTALLER Plan of Treatment Upcoming Encounters Date Type Department Care Team (Late st Contact Info) Description 07/19/2024 9:30 AM CDT Office Visit [facility] Oncology and Hematology - [place] [address] [facility] [address] [place] [address] Eric Ricardo MD [address] [facility] [address] [place] [address] Health Maintenance Due Date Last [...] 05/19/2019 INFLUENZA VACCINE (#1) 2023 [place] Prev entative Visit/Annual Wellness Visit 02/28/2024 Procedures Procedure Name Priority Date/Time Associated Diagnosis Comments FLOW CYTOMETRY REPORT Routine 03/27/2024 10:43 AM PLASTIC INSTALLER COMPREHENSIVE METABOLIC PANEL Routine 03/27/2024 10:36 AM PLASTIC INSTALLER COMPREHENSIVE METABOLIC PANEL Routine 03/26/2024 1:20 PM PLASTIC INSTALLER CBC WITH DIFFERENTIAL Routine 03/26/2024 1:10 PM PLASTIC INSTALLER COMPREHENSIVE METABOLIC PANEL Routine 03/26/2024 12:38 PM PLASTIC INSTALLER from Last 3 Months Results * FLOW CYTOMETRY REPORT (03/27/2024 10:43 AM PLASTIC INSTALLER) us Eric Ricardo MD PATHOLOGY/CYTOLOGY ORDERABLES F inal Result * COMPREHENSIVE METABOLIC PANEL (03/27/2024 10:36 AM PLASTIC INSTALLER) Only the most recent of3 resultswithin the time period is included. Blood us Eric Ricardo MD CHEMISTRY ORDERABLES Final Resu lt * CBC WITH DIFFERENTIAL (03/26/2024 1:10 PM PLASTIC INSTALLER) Blood us Eric Ricardo MD HEMATOLOGY ORDERABLES Final Res ult from Last 3 Months Insurance [facility] MCR Care Teams Certified Nurse Practitioner Relationship Specialty Start Date End Date Farhad Marshall MD [address] [place] [phone] PCP - General Family Practice 01/19/24
== END 2024-06-18 15:54 | disposition home or self-care (01) ==
PROVIDERS: PCP Family Medicine; Visit Provider Nurse Practitioner Family
DX: R39.9 Unspecified symptoms and signs involving the genitourinary system (principal); R41.0 Disorientation, unspecified; R91.8 Other nonspecific abnormal finding of lung field
CPT/HCPCS: 36415; 80053; 81003; 85027; 87086

== ENCOUNTER 2024-07-11 11:23 | Outpatient (CLI) | payer MEDICARE, SELFPAY ==
--- OUTSIDE RECORDS SUMMARY | 2024-07-11 11:31 | XMS_ITS | Encounter Summary ---
Author Organization [facility] Address [address], [place] [address] Phone Care Team Providers Care Recruiting Manager Name Role Phone Tito Hoyos MD Primary Care Provider [phone] Reason for Visit * Reason Comments Med Refill Encounter Details Date Type Department Care Team (Late st Contact Info) Description 12/26/2020 Refill [facility] Nephrology and Hypertension [address] [place] [address], [address] [place], [place] [address] Lisette Cao MD [facility]4 [facility], [address] [place] [address] Social History Tobacco Use Types Packs/Day Years [...] on filedocumented in this encounter Care Teams Recruiting Manager Relationship Specialty Start Date End Date Tito Hoyos MD [address] [place] [address] PCP - General Family Medicine 12/05/18 documented as of this encounter
--- OUTSIDE RECORDS SUMMARY | 2024-07-11 11:31 | XMS_ITS | Encounter Summary ---
Author Organization [facility] Address [address], [place] [address] Phone Care Team Providers Care Relay Operator Name Role Phone Tito Hoyos MD Primary Care Provider [phone] Reason for Visit * Reason Comments Med Refill Encounter Details Date Type Department Care Team (Late st Contact Info) Description 03/18/2021 Refill [facility] Nephrology and Hypertension [address] [place] [address], [address] [place], [place] [phone] Lisette Cao MD [facility], [address] [place] [address] Social History Tobacco Use Types Packs/Day Years [...] on filedocumented in this encounter Care Teams Relay Operator Relationship Specialty Start Date End Date Tito Hoyos MD [address] [place] [address] PCP - General Family Medicine 12/05/18 documented as of this encounter
--- OUTSIDE RECORDS SUMMARY | 2024-07-11 11:31 | XMS_ITS | Encounter Summary ---
Author Organization [facility] Address [address], [place] [address] Phone Care Team Providers Care Keypunch Operators Supervisor Name Role Phone Tito Hoyos MD Primary Care Provider [phone] Reason for Visit * Reason Comments Med Refill Encounter Details Date Type Department Care Team (Late st Contact Info) Description 07/05/2021 Refill [facility] Nephrology and Hypertension [address] [place] [address], [address] [place], [place] [phone] Lisette Cao MD [facility], [address] [place] [address] Social History Tobacco Use Types Packs/Day Years [...] on filedocumented in this encounter Care Teams Keypunch Operators Supervisor Relationship Specialty Start Date End Date Tito Hoyos MD [address] [place] [address] PCP - General Family Medicine 12/05/18 documented as of this encounter
--- OUTSIDE RECORDS SUMMARY | 2024-07-11 11:31 | XMS_ITS | Encounter Summary ---
Author Organization [facility] Address [address], [place] [address] Phone Care Team Providers Care Veterinary Epidemiologist Name Role Phone Tito Hoyos MD Primary Care Provider [phone] Reason for Visit * Reason Comments Med Refill Encounter Details Date Type Department Care Team (Late st Contact Info) Description 03/18/2021 Refill [facility] Nephrology and Hypertension [address] [place] [address], [address] [place], [place] [address] Lisette Cao MD [facility]4 [facility], [address] [place] [address] Social History Tobacco Use Types Packs/Day Years [...] on filedocumented in this encounter Care Teams Veterinary Epidemiologist Relationship Specialty Start Date End Date Tito Hoyos MD [address] [place] [address] PCP - General Family Medicine 12/05/18 documented as of this encounter
--- OUTSIDE RECORDS SUMMARY | 2024-07-11 11:31 | XMS_ITS | Encounter Summary ---
Author Organization [facility] Address [address], [place] [address] Phone Care Team Providers Care Executive Assistant To General Counsel Name Role Phone Tito Hoyos MD Primary Care Provider [phone] Reason for Visit * Reason Comments Med Refill Encounter Details Date Type Department Care Team (Late st Contact Info) Description 11/29/2019 Refill [facility] Nephrology and Hypertension [address] [place] [address], [address] [place], [place] [address] Lisette Cao MD [address] [facility], [address] [place] [address] Social History Tobacco Use Types Packs/Day Years [...] filedocumented in this encounter Care Teams Executive Assistant To General Counsel Relationship Specialty Start Date End Date Tito Hoyos MD [address] [place] [address] PCP - General Family Medicine 12/05/18 documented as of this encounter
--- OUTSIDE RECORDS SUMMARY | 2024-07-11 11:32 | XMS_ITS | Encounter Summary ---
Author Organization [facility] Address [address] [address] Phone Care Team Providers Care Other Sales Support Worker Name Role Phone Tito Hoyos MD Primary Care Provider [phone] Reason for Visit * Reason Comments Med Refill Encounter Details Date Type Department Care Team (Late st Contact Info) Description 06/13/2018 Refill [facility] Nephrology and Hypertension [address] [place] [address], [address] [place], [place] [id number] Lisette Cao MD [address] [facility], [address] [place] [address] Social History Tobacco Use Types Packs/Day Years [...] on filedocumented in this encounter Care Teams Other Sales Support Worker Relationship Specialty Start Date End Date Tito Hoyos MD [address] [place] [address] PCP - General Family Medicine 12/05/18 documented as of this encounter
--- OUTSIDE RECORDS SUMMARY | 2024-07-11 11:32 | XMS_ITS | Clinical Summary ---
Author Organization [facility] Address [address] [address] Phone Care Team Providers Care Organic Preparation Technician Name Role Phone Tito Hoyos MD Primary Care Provider [phone] Allergies Active Allergy Reactions Criticality Noted Date [...] on file Legal Sex Female 9:35 AM [facility] Gender Identity Not on file Sexual [...] Advance Directives For more information, please contact: [phone] (7AM - 4PM [facility], 7 days a week) Documents on File Type Date Recorded Patient Boiler Fireman Expl anation Power of Environment Coordinator 06/16/2018 3:03 PM Ely [email or web address] Care Teams Organic Preparation Technician Relationship Specialty Start Date End Date Tito Hoyos MD [address] [place] [address] PCP - General Family Medicine 12/05/18
--- OUTSIDE RECORDS SUMMARY | 2024-07-11 11:32 | XMS_ITS | Encounter Summary ---
Author Organization [facility] Address [address], [place] [address] Phone Care Team Providers Care Grounds Manager Name Role Phone Tito Hoyos MD Primary Care Provider [phone] Reason for Visit * Reason Comments Med Refill Encounter Details Date Type Department Care Team (Late st Contact Info) Description 06/28/2018 Refill [facility] Nephrology and Hypertension [facility], [place] [address] Lisette Cao MD [facility], [address] [place] [address] Social History Tobacco Use Types Packs/Day Years [...] on filedocumented in this encounter Care Teams Grounds Manager Relationship Specialty Start Date End Date Tito Hoyos MD [address] [place] [address] PCP - General Family Medicine 12/05/18 documented as of this encounter
--- OUTSIDE RECORDS SUMMARY | 2024-07-11 11:32 | XMS_ITS | Encounter Summary ---
Author Organization [facility] Address [address] [address] Phone Care Team Providers Care Retail Experience Specialist Name Role Phone Tito Hoyos MD Primary Care Provider [phone] Reason for Visit * Reason Comments Med Refill Encounter Details Date Type Department Care Team (Late st Contact Info) Description 07/18/2018 Refill [facility] Nephrology and Hypertension [address] [place] [address], [address] [place], [place] [id number] Lisette Cao MD [address] [facility], [address] [place] [address] Social History Tobacco Use Types Packs/Day Years [...] on filedocumented in this encounter Care Teams Retail Experience Specialist Relationship Specialty Start Date End Date Tito Hoyos MD [address] [place] [address] PCP - General Family Medicine 12/05/18 documented as of this encounter
--- OUTSIDE RECORDS SUMMARY | 2024-07-11 11:32 | XMS_ITS | Clinical Summary ---
Author Organization [facility] Address [address] [place] [address] Care Team Providers Care Lead Injection Mold Technician Name Role Phone Farhad Marshall MD Primary Care Provider [phone] Allergies Active Allergy Reactions Criticality Noted Date [...] STL ABSTRACTION Provider, Abstract 04/17/2024 10:00 AM PULP MIXER Telephone Check Up [facility] Oncology and Hematology [facility] [address] [place] [address] Eric Ricardo MD Leukocytosis, unspecified type (Primary Dx) 04/17/2024 External Device Data STL ABSTRACTION Provider, Abstract 04/16/2024 Abstract [facility] Oncology and Hematology [facility] [address] [place] [address] Eric Ricardo MD 04/16/2024 Orders Only [facility] Oncology and Hematology [facility] [address] [place] [address] Eric Ricardo MD from Last 3 Months Family History Medical [...] on file Legal Sex Female 12:27 PM PULP MIXER Gender Identity Not on file Sexual Orientation Not on file Last Filed Vital Signs Vital Sign Reading Time Taken Comments Blood Pressure 121/81 03/19/2024 1:59 PM PULP MIXER Pulse 102 03/19/2024 1:59 PM PULP MIXER Temperature 36.8 C (98.3 F) 03/19/2024 1:59 PM PULP MIXER Respiratory Rate - - Oxygen Saturation 95% 03/19/2024 1:59 PM PULP MIXER Inhaled Oxygen Concentration - - Weight 71.2 kg (157 lb) 03/19/2024 1:59 PM PULP MIXER Height 154.9 cm (5' 1 ) 03/19/2024 1:59 PM PULP MIXER Body Mass Index 29.66 03/19/2024 1:59 PM PULP MIXER Plan of Treatment Upcoming Encounters Date Type Department Care Team (Late st Contact Info) Description 07/19/2024 9:30 AM CDT Office Visit [facility] Oncology and Hematology [facility] [address] [facility] [address] [place] [address] Eric Ricardo MD [address] [facility] [address] [place] [address] Health Maintenance Due Date Last [...] 05/19/2019 INFLUENZA VACCINE (#1) 2023 [place] Prev entative Visit/Annual Wellness Visit 02/28/2024 Insurance [facility] MCR Care Teams Lead Injection Mold Technician Relationship Specialty Start Date End Date Farhad Marshall MD [address] [place] [address] PCP - General Family Practice 01/19/24
--- OUTSIDE RECORDS SUMMARY | 2024-07-11 11:32 | XMS_ITS | Continuity of Care Document ---
Author Organization [facility] Address [address] [facility] [address] [place] [address] Phone Care Team Providers Care Medical Billing Representative Name Role Phone Birch OD, Turner Unavailable Unavailable Procedures Procedure Date Eye Exam & Treatment Refraction Advance Directives Directive Yes / No Effective Date File Name No Information Encounters Encounter Description Practice Location Reason(s) For Visit Diagnoses Date Provider Providers Copied on Encounter [facility], [address], [place], [place], [id number], [place] tel:[phone] [facility] No Information 0 4-201 0 Birch OD Turner. [address] , [address], [place], [address], [place]. tel:[phone] Family History Family Member Type Diagnosis Age At Onset No Information Payers Payer name Insurance type Covered democrat ID Authoriza tion(s) Medicare [facility] [id number] Social History Type Description Quantity Date Captured [...]
--- OUTSIDE RECORDS SUMMARY | 2024-07-11 11:32 | XMS_ITS | Encounter Summary ---
Author Organization [facility] Address [address] [address] Phone Care Team Providers Care Workcell Operator Name Role Phone Tito Hoyos MD Primary Care Provider [phone] Reason for Visit * Reason Comments Med Refill Encounter Details Date Type Department Care Team (Late st Contact Info) Description 06/29/2018 Refill [facility] Nephrology and Hypertension [facility], [place] [address] Lisette Cao MD [facility]4 [facility], [address] [place] [address] Social History Tobacco Use Types Packs/Day Years [...] on filedocumented in this encounter Care Teams Workcell Operator Relationship Specialty Start Date End Date Tito Hoyos MD [address] [place] [address] PCP - General Family Medicine 12/05/18 documented as of this encounter
[2024-07-11 12:15] LABS: Basophils Absolute Auto 0.1 K/mm3 (0.0-0.1); Basophils Percent Auto 0.5 % (0.2-1.2); Eosinophils Absolute Auto 0.3 K/mm3 (0-0.3); Eosinophils Percent Auto 2.4 % (0-4.4); Hematocrit 34.2 % (37.0-47.0); Hemoglobin 10.9 g/dL (12.0-15.0); Immature Granulocyte Absolute 0.05 K/mm3 (0.00-0.031); Immature Granulocyte Percent A 0.4 % (0-0.5); Lymphocytes Absolute Auto 4.27 K/mm3 (0.9-3.2); Lymphocytes Percent Auto 35.1 % (18.3-44.2); Mean Corpuscular HGB Conc 31.9 g/dl (32-36); Mean Corpuscular Hemoglobin 26.8 pg (26-34); Mean Corpuscular Volume 84.2 fl (80-100); Mean Platelet Volume 9.2 fl (7.4-10.4); Monocytes Absolute Auto 1.2 K/mm3 (0.1-0.6); Monocytes Percent Auto 9.9 % (2.6-8.5); Neutrophils Absolute Auto 6.3 K/mm3 (1.3-6.7); Neutrophils Percent Auto 51.7 % (45.5-73.1); Platelet Count Result 428 k/mm3 (150-375); Red Blood Count 4.06 M/mm3 (4.2-5.4); Red Cell Distribution Width 15.2 % (11.5-14.5); White Blood Count 12.2 K/mm3 (4.5-10.0)
[2024-07-11 12:25] LABS: Anion Gap 9 mmol/L (4-12); Blood Urea Nitrogen 17 mg/dL (7-17); Calcium 9.1 mg/dL (8.4-10.2); Carbon Dioxide 21 mmol/L (22-30); Chloride 103 mmol/L (98-107); Estimated Glomerular Filt Rate > 60; Glucose 96 mg/dL (65-110); Potassium 4.1 mmol/L (3.4-5.0); Sodium 133 mmol/L (137-145)
== END 2024-07-11 11:24 | disposition home or self-care (01) ==
PROVIDERS: PCP Family Medicine; Visit Provider Internal Medicine Hematology & Oncology
DX: D72.829 Elevated white blood cell count, unspecified (principal)
CPT/HCPCS: 36415; 80048; 85025

== ENCOUNTER 2024-07-19 09:53 | Outpatient (CLI) | payer MEDICARE, SELFPAY ==
--- OUTSIDE RECORDS SUMMARY | 2024-07-19 09:58 | XMS_ITS | Encounter Summary ---
Author Organization [facility] Address [address], [place] [address] Phone Care Team Providers Care Pocket Marker Name Role Phone Tito Hoyos MD Primary Care Provider [phone] Reason for Visit * Reason Comments Med Refill Encounter Details Date Type Department Care Team (Late st Contact Info) Description 03/18/2021 Refill [facility] Nephrology and Hypertension [address] [place] [address], [address] [place], [place] [id number] Lisette Cao MD [facility], [address] [place] [address] Social History Tobacco Use Types Packs/Day Years [...] on filedocumented in this encounter Care Teams Pocket Marker Relationship Specialty Start Date End Date Tito Hoyos MD [address] [place] [address] PCP - General Family Medicine 12/05/18 documented as of this encounter
--- OUTSIDE RECORDS SUMMARY | 2024-07-19 09:58 | XMS_ITS | Continuity of Care Document ---
Author Organization [facility] Address [address] [facility] [address] [place] [address] Phone Care Team Providers Care Admitting Interviewer Name Role Phone Birch OD, Turner Unavailable Unavailable Procedures Procedure Date Eye Exam & Treatment Refraction Advance Directives Directive Yes / No Effective Date File Name No Information Encounters Encounter Description Practice Location Reason(s) For Visit Diagnoses Date Provider Providers Copied on Encounter [facility], [address] [place] [address] [address], [place], [place], [id number], [place] tel:[phone] [facility] No Information 0 4-201 0 Birch OD Turner. [address] , [address], [place], [address], [place]. tel:[phone] Family History Family Member Type Diagnosis Age At Onset No Information Payers Payer name Insurance type Covered democrat ID Authoriza tion(s) [place] [id number] Social History Type Description Quantity Date Captured [...]
--- OUTSIDE RECORDS SUMMARY | 2024-07-19 09:58 | XMS_ITS | Encounter Summary ---
Author Organization [facility] Address [address] [address] Phone Care Team Providers Care Aquatic Performer Name Role Phone Tito Hoyos MD Primary Care Provider [phone] Reason for Visit * Reason Comments Med Refill Encounter Details Date Type Department Care Team (Late st Contact Info) Description 06/13/2018 Refill [facility] Nephrology and Hypertension [address] [place] [address], [address] [place], [place] [address] Lisette Cao MD [address] [facility], [address] [place] [address] Social History Tobacco Use Types Packs/Day Years [...] on filedocumented in this encounter Care Teams Aquatic Performer Relationship Specialty Start Date End Date Tito Hoyos MD [address] [place] [address] PCP - General Family Medicine 12/05/18 documented as of this encounter
--- OUTSIDE RECORDS SUMMARY | 2024-07-19 09:58 | XMS_ITS | Clinical Summary ---
Author Organization [facility] Address [address] [place] [address] Care Team Providers Care Tax Examiner Name Role Phone Farhad Marshall MD Primary Care Provider [phone] Allergies Active Allergy Reactions Criticality Noted Date [...] Encounters Date Type Department Care Team Description 07/19/2024 9:30 AM CDT Office Visit [facility] Oncology and Hematology [facility] [address] [place] [address] Eric Ricardo MD Chronic anemia (Primary Dx) 07/17/2024 External Device Data STL ABSTRACTION Provider, Abstract 07/12/2024 Orders Only [facility] Oncology and [facility] [address] [place] [address] Eric Ricardo MD 05/15/2024 External Device Data STL ABSTRACTION Provider, [...] Day Cigarettes 0.5 43 Smokeless Tobacco: Never Tobacco Cessation:Ready to Q uit: Not Asked; Counseling Given: Not Answered Comments:On and off have quit for years and months during the last 43 yrs of smoking Alcohol Use Standard Drinks/Week Comments Never 0 (1 standard drink = 0.6 oz pur e alcohol) Comments Unknown Sex and Gender Information Value Date Recorded Sex Assigned at Not on file Legal Sex Female 12:27 PM MOLD WASHER Gender Identity Not on file Sexual Orientation Not on file Last Filed Vital Signs Vital Sign Reading Time Taken Comments Blood Pressure 127/82 07/19/2024 9:25 AM CDT Pulse 114 07/19/2024 9:25 AM CDT Temperature 36.6 C (97.9 F) 07/19/2024 9:25 AM CDT Respiratory Rate 15 07/19/2024 9:25 AM CDT Oxygen Saturation 96% 07/19/2024 9:25 AM CDT Inhaled Oxygen Concentration - - Weight 68.8 kg (151 lb 9.6 oz) 07/19/2024 9:25 A M CDT Height 154.9 cm (5' 1 ) 03/19/2024 1:59 PM MOLD WASHER Body Mass Index 28.64 03/19/2024 1:59 PM MOLD WASHER Plan of Treatment Upcoming Encounters Date Type Department Care Team (Late st Contact Info) Description 07/29/2024 4:30 PM CDT Telephone Check Up [facility] Oncology and Hematology [facility] [address] [facility] [address] [place] [address] Eric Ricardo MD [address] [facility] [address] [place] [address] Health Maintenance Due Date Last [...] 05/19/2019 INFLUENZA VACCINE (#1) 2023 [place] Prev entative Visit/Annual Wellness Visit 02/28/2024 Procedures Procedure Name Priority Date/Time Associated Diagnosis Comments BASIC METABOLIC PANEL Routine 07/11/2024 3:36 PM CDT from Last 3 Months Results * BASIC METABOLIC PANEL (07/11/2024 3:36 PM CDT) Blood Eric Ricardo MD CHEMISTRY ORDERABLES Final Resu lt from Last 3 Months Insurance [facility] MCR Care Teams Tax Examiner Relationship Specialty Start Date End Date Farhad Marshall MD [address] [place] [address] PCP - General Family Practice 01/19/24
--- OUTSIDE RECORDS SUMMARY | 2024-07-19 09:58 | XMS_ITS | Clinical Summary ---
Author Organization [facility] Address [address] [place] [address] Phone Care Team Providers Care End Lathe Operator Name Role Phone Farhad Marshall MD Primary Care Provider [phone] Rupal Taveras APRN, MAILING SPECIALIST Unavailable [phone] Allergies Active Allergy Reactions Criticality Noted Date [...] Comments Blood Pressure 120/74 04/17/2023 9:28 AM RECOVERY UNIT OPERATOR Pulse 91 04/17/2023 9:28 AM RECOVERY UNIT OPERATOR Temperature 36.4 C (97.6 F) 04/17/2023 9:28 AM RECOVERY UNIT OPERATOR Respiratory Rate 18 04/17/2023 9:28 AM RECOVERY UNIT OPERATOR Oxygen Saturation 96% 04/17/2023 9:28 AM RECOVERY UNIT OPERATOR Inhaled Oxygen Concentration - - Weight 82.7 kg (182 lb 6.4 oz) 04/17/2023 9:28 A M RECOVERY UNIT OPERATOR Height 154.9 cm (5' 1 ) 04/17/2023 9:28 AM RECOVERY UNIT OPERATOR Body Mass Index 34.46 04/17/2023 9:28 AM RECOVERY UNIT OPERATOR Plan of Treatment Health Maintenance Due [...] topic Insurance MEDICARE C [employer] Care Teams End Lathe Operator Relationship Specialty Start Date End Date Farhad Marshall MD PCP - General Family Medicine 12/22/22 Rupal Taveras, BUSINESS INTELLIGENCE ANALYST, MAILING SPECIALIST [address] [place] [address] Nurse Practitioner Advanced Practice Nurse 12/22/22
--- OUTSIDE RECORDS SUMMARY | 2024-07-19 09:58 | XMS_ITS | Encounter Summary ---
Author Organization [facility] Address [address], [place] [address] Phone Care Team Providers Care Shackler Name Role Phone Tito Hoyos MD Primary Care Provider [phone] Reason for Visit * Reason Comments Med Refill Encounter Details Date Type Department Care Team (Late st Contact Info) Description 12/26/2020 [facility]ill [facility] Nephrology [facility] Hypert[facility] [address] [place] [address], [address] [place], [place] [phone] Lisette Cao MD [facility]4 [facility], [address] [place] [address] Social History Tobacco Use Types Packs/Day Years [...] on filedocumented in this encounter Care Teams Shackler Relationship Specialty Start Date End Date Tito Hoyos MD [address] [place] [address] PCP - General Family Medicine 12/05/18 documented as of this encounter
--- OUTSIDE RECORDS SUMMARY | 2024-07-19 09:58 | XMS_ITS | Encounter Summary ---
Author Organization [facility] Address [address] [place] [address] Care Team Providers Care Diabetic Educator Name Role Phone Farhad Marshall MD Primary Care Provider [phone] Encounter Details Date Type Department Care Team (Late st Contact Info) Description 07/19/2024 9:30 AM CDT Office Visit [facility] Oncology and Hematology - [address]m [address] [facility] [address] [place] [address] Eric Ricardo MD [address] [facility] [address] [place] [address] Chronic anemia (Primary Dx) Social History Tobacco Use Types Packs/Day Years [...] on file Legal Sex Female 12:27 PM DEFENSIVE FIRE CONTROL SYSTEMS OPERATOR Gender Identity Not on file Sexual Orientation Not on file documented as of this encounter Last Filed Vital Signs Vital Sign Reading [...] oz) 07/19/2024 9:25 A M CDT Height - - Body Mass Index 28.64 03/19/2024 1:59 PM DEFENSIVE FIRE CONTROL SYSTEMS OPERATOR documented in this encounter Plan of Treatment Upcoming Encounters Date Type Department Care Team (Late st Contact Info) Description 07/29/2024 4:30 PM CDT Telephone Check Up [facility] Oncology and Hematology - [address] [facility] [address] [place] [address] Eric Ricardo MD [address] [facility] [address] [place] [address] Scheduled Orders Name Type Priority Associated Diagnoses Orde r Schedule FERRITIN Lab Routine Chronic anemia Expected: 07/19/2024, Expires: 07/19/2025 IRON, TIBC, AND PERCENT SATURATION Lab Routine Chronic anemia Expected: 07/19/2024, Expires: 07/19/2025 VITAMIN B12 AND FOLATE Lab Routine Chronic anemia Expected: 07/19/2024, Expires: 07/19/2025 CBC WITH DIFFERENTIAL Lab Stat Chronic anemia Expected: 10/11/2024, Expires: 07/19/2025 documented as of this encounter Visit Diagnoses Diagnosis Chronic anemia- Primary Anemia, unspecified documented in this encounter Care Teams Diabetic Educator Relationship Specialty Start Date End Date Farhad Marshall MD [address] [place] [address] PCP - General Family Practice 01/19/24 documented as of this encounter
--- OUTSIDE RECORDS SUMMARY | 2024-07-19 09:58 | XMS_ITS | Encounter Summary ---
Author Organization [facility] Address [address] [place] [address] Care Team Providers Care Receiving Dock Checker Name Role Phone Farhad Marshall MD Primary Care Provider [phone] Encounter Details Date Type Department Care Team (Late st Contact Info) Description 07/17/2024 External Device Data STL ABSTRACTION Provider, [...] on file Legal Sex Female 12:27 PM BULK PALLET BUILDER Gender Identity Not on file Sexual Orientation Not on file documented as of this encounter Plan of Treatment Upcoming Encounters Date Type Department Care Team (Late st Contact Info) Description 07/29/2024 4:30 PM CDT Telephone Check Up [facility] Oncology and Hematology - [address] [facility] [address] [place] [address] Eric Ricardo MD [address] [facility] [address] [place] [address] documented as of this encounter Visit Diagnoses Not on filedocumented in this encounter Care Teams Receiving Dock Checker Relationship Specialty Start Date End Date Farhad Marshall MD [address] [place] [phone] PCP - General Family Practice 01/19/24 documented as of this encounter
--- OUTSIDE RECORDS SUMMARY | 2024-07-19 09:58 | XMS_ITS | Encounter Summary ---
Author Organization [facility] Address [address], [place] [address] Phone Care Team Providers Care Staying Machine Operator Name Role Phone Tito Hoyos MD Primary Care Provider [phone] Reason for Visit * Reason Comments Med Refill Encounter Details Date Type Department Care Team (Late st Contact Info) Description 06/28/2018 Refill [facility] Nephrology and Hypertension [facility], [place] [address] Lisette Cao MD [facility]4 [facility], [address] [place] [address] Social History Tobacco Use Types Packs/Day Years [...] on filedocumented in this encounter Care Teams Staying Machine Operator Relationship Specialty Start Date End Date Tito Hoyos MD [address] [place] [address] PCP - General Family Medicine 12/05/18 documented as of this encounter
--- OUTSIDE RECORDS SUMMARY | 2024-07-19 09:58 | XMS_ITS | Encounter Summary ---
Author Organization [facility] Address [address], [place] [address] Phone Care Team Providers Care Land Surveyor Name Role Phone Tito Hoyos MD Primary Care Provider [phone] Reason for Visit * Reason Comments Med Refill Encounter Details Date Type Department Care Team (Late st Contact Info) Description 07/05/2021 Refill [facility] Nephrology and Hypertension [address] [place] [address], [address] [place], [place] [address] Lisette Cao MD [facility]4 [facility], [address] [place] [address] Social History Tobacco Use Types Packs/Day Years [...] on filedocumented in this encounter Care Teams Land Surveyor Relationship Specialty Start Date End Date Tito Hoyos MD [address] [place] [address] PCP - General Family Medicine 12/05/18 documented as of this encounter
--- OUTSIDE RECORDS SUMMARY | 2024-07-19 09:58 | XMS_ITS | Encounter Summary ---
Author Organization [facility] Address [address], [place] [address] Phone Care Team Providers Care News Specialist Name Role Phone Tito Hoyos MD Primary Care Provider [phone] Reason for Visit * Reason Comments Med Refill Encounter Details Date Type Department Care Team (Late st Contact Info) Description 03/18/2021 Refill [facility] Nephrology and Hypertension [address] [place] [address], [address] [place], [place] [address] Lisette Cao MD [facility]4 [facility], [address] [place] [address] Social History Tobacco Use Types Packs/Day Years [...] on filedocumented in this encounter Care Teams News Specialist Relationship Specialty Start Date End Date Tito Hoyos MD [address] [place] [address] PCP - General Family Medicine 12/05/18 documented as of this encounter
--- OUTSIDE RECORDS SUMMARY | 2024-07-19 09:58 | XMS_ITS | Encounter Summary ---
Author Organization [facility] Address [address] [place] [address] Phone Care Team Providers Care Aquatics Coordinator Name Role Phone Tito Hoyos MD Primary Care Provider [phone] Reason for Visit * Reason Comments Med Refill Encounter Details Date Type Department Care Team (Late st Contact Info) Description 07/18/2018 Refill [facility] Nephrology and Hypertension [address] [place] [address], [address] [place], [place] [id number] Lisette Cao MD [address] [facility], [address] [place] [address] Social History Tobacco Use Types Packs/Day Years [...] on filedocumented in this encounter Care Teams Aquatics Coordinator Relationship Specialty Start Date End Date Tito Hoyos MD [address] [place] [address] PCP - General Family Medicine 12/05/18 documented as of this encounter
--- OUTSIDE RECORDS SUMMARY | 2024-07-19 09:58 | XMS_ITS | Encounter Summary ---
Author Organization [facility] Address [address], [place] [address] Phone Care Team Providers Care Rural Route Mail Carrier Name Role Phone Tito Hoyos MD Primary Care Provider [phone] Reason for Visit * Reason Comments Med Refill Encounter Details Date Type Department Care Team (Late st Contact Info) Description 11/29/2019 Refill [facility] Nephrology and Hypertension [address] [place] [address], [address] [place], [place] [address] Lisette Cao MD [address] [facility], [address] [place] [address] Social History Tobacco Use Types Packs/Day Years [...] on filedocumented in this encounter Care Teams Rural Route Mail Carrier Relationship Specialty Start Date End Date Tito Hoyos MD [address] [place] [address] PCP - General Family Medicine 12/05/18 documented as of this encounter
--- OUTSIDE RECORDS SUMMARY | 2024-07-19 09:58 | XMS_ITS | Clinical Summary ---
Author Organization [facility] Address [address], [place] [address] Phone Care Team Providers Care University Counselor Name Role Phone Tito Hoyos MD Primary [...] on file Legal Sex Female 9:35 AM [facility] Gender Identity Not on file Sexual [...] Advance Directives For more information, please contact: [phone] (7AM - 4PM [facility]/[place], 7 days a week) Documents on File Type Date Recorded Patient Automotive Parts Manager Expl anation Power of Veneer Taping Machine Offbearer 06/16/2018 3:03 PM Ely [id number] Care Teams University Counselor Relationship Specialty Start Date End Date Tito Hoyos MD [address] [place] [address] PCP - General Family Medicine 12/05/18
--- OUTSIDE RECORDS SUMMARY | 2024-07-19 09:58 | XMS_ITS | Encounter Summary ---
Author Organization [facility] Address [address] [address] Phone Care Team Providers Care Color Drum Worker Name Role Phone Tito Hoyos MD Primary Care Provider [phone] Reason for Visit * Reason Comments Med Refill Encounter Details Date Type Department Care Team (Late st Contact Info) Description 06/29/2018 Refill [facility] Nephrology and Hypertension [facility]4 [facility], [place] [address] Lisette Cao MD [facility]4 [facility], [address] [place] [address] Social History Tobacco Use Types Packs/Day Years [...] on filedocumented in this encounter Care Teams Color Drum Worker Relationship Specialty Start Date End Date Tito Hoyos MD [address] [place] [address] PCP - General Family Medicine 12/05/18 documented as of this encounter
[2024-07-19 10:19] LABS: Basophils Absolute Auto 0.1 K/mm3 (0.0-0.1); Basophils Percent Auto 0.5 % (0.2-1.2); Eosinophils Absolute Auto 0.2 K/mm3 (0-0.3); Eosinophils Percent Auto 1.4 % (0-4.4); Hemoglobin 12.2 g/dL (12.0-15.0); Immature Granulocyte Absolute 0.06 K/mm3 (0.00-0.031); Immature Granulocyte Percent A 0.5 % (0-0.5); Lymphocytes Absolute Auto 3.25 K/mm3 (0.9-3.2); Lymphocytes Percent Auto 25.3 % (18.3-44.2); Mean Corpuscular HGB Conc 32.1 g/dl (32-36); Mean Corpuscular Hemoglobin 27.5 pg (26-34); Mean Corpuscular Volume 85.6 fl (80-100); Mean Platelet Volume 9.3 fl (7.4-10.4); Monocytes Absolute Auto 0.8 K/mm3 (0.1-0.6); Monocytes Percent Auto 6.4 % (2.6-8.5); Neutrophils Absolute Auto 8.5 K/mm3 (1.3-6.7); Neutrophils Percent Auto 65.9 % (45.5-73.1); Platelet Count Result 533 k/mm3 (150-375); Red Blood Count 4.44 M/mm3 (4.2-5.4); Red Cell Distribution Width 15.2 % (11.5-14.5); White Blood Count 12.8 K/mm3 (4.5-10.0)
[2024-07-19 12:01] LABS: Iron 44 ug/dL (37-170)
[2024-07-19 12:12] LABS: Percent Iron Saturation 9 % (20-50)
[2024-07-19 12:39] LABS: Ferritin 7.41 ng/mL (11.1-264)
[2024-07-19 19:06] LABS: Folic Acid 13.2 ng/mL (2.76->20)
== END 2024-07-19 09:54 | disposition home or self-care (01) ==
LOC: ANHLAB 09:55
PROVIDERS: PCP Family Medicine; Visit Provider Internal Medicine Hematology & Oncology
DX: D64.9 Anemia, unspecified (principal)
CPT/HCPCS: 36415; 82607; 82728; 82746; 83540; 83550; 85025

== ENCOUNTER 2024-11-26 08:33 | Outpatient (CLI) | payer MEDICARE, SELFPAY ==
--- OUTSIDE RECORDS SUMMARY | 2024-11-26 08:46 | XMS_ITS | Encounter Summary ---
Author Organization [facility] Address [address] [address] Phone Care Team Providers Care Account Representative Name Role Phone Tito Hoyos MD Primary Care Provider [phone] Reason for Visit * Reason Comments Med Refill Encounter Details Date Type Department Care Team (Late st Contact Info) Description 06/28/2018 Refill [facility] Nephrology and Hypertension [facility]4 [facility], [place] [address] Lisette Cao MD [facility]4 [facility], [address] [place] [address] Social History Tobacco Use Types Packs/Day Years [...] on filedocumented in this encounter Care Teams Account Representative Relationship Specialty Start Date End Date Tito Hoyos MD [address] [place] [address] PCP - General Family Medicine 12/05/18 documented as of this encounter
--- OUTSIDE RECORDS SUMMARY | 2024-11-26 08:46 | XMS_ITS | Clinical Summary ---
Author Organization [facility] Address [address] [place] [address] Phone Care Team Providers Care Mortgage Loan Coordinator Name Role Phone Farhad Marshall MD Primary Care Provider [phone] Rupal Taveras APRN, HONING MACHINE SET UP OPERATOR TOOL Unavailable [phone] Allergies Active Allergy Reactions Criticality Noted Date [...] Comments Blood Pressure 120/74 04/17/2023 9:28 AM BOX LINER Pulse 91 04/17/2023 9:28 AM BOX LINER Temperature 36.4 C (97.6 F) 04/17/2023 9:28 AM BOX LINER Respiratory Rate 18 04/17/2023 9:28 AM BOX LINER Oxygen Saturation 96% 04/17/2023 9:28 AM BOX LINER Inhaled Oxygen Concentration - - Weight 82.7 kg (182 lb 6.4 oz) 04/17/2023 9:28 A M BOX LINER Height 154.9 cm (5' 1) 04/17/2023 9:28 AM BOX LINER Body Mass Index 34.46 04/17/2023 9:28 AM BOX LINER Plan of Treatment Health Maintenance Due Date Last Done Comments DEXA Bone Density 1955 Hepatitis C Virus (HCV) Screening 1955 Mammogram 1955 Cologuard 05/19/1999 Colonoscopy 05/19/1999 Colorectal Cancer Screening 05/19/1999 Immunochemical Fecal Occult Blood 05/19/1999 Respiratory Syncytial Virus (RSV) Immunization (Adult) (1 - Risk 60-74 years 1-dose series) 2014 Pneumococcal Immunization (50+ years) (2 of 2 - PPSV23, PCV20, or PCV21) 01/04/2016 11/09/2015 Zoster Immunization (2 of 2) 12/22/2022 10/27/2022 Influenza Immunization (#1) 2024 SARS-COV-2 Immunization ( season) 2024 11/20/2021, 06/11/2021, 12/07/2020, Additional history exists DTaP/Tdap/Td Immunization Discontinued 09/01/2022, 02/2010 TdaP Immunization Completed 09/01/2022 Hepatitis B Immunization Aged Out No longer eligible based on patient's age to complete this topic Human Papillomavirus (HPV) Immunization Aged Out No longer eligible based on patient's age to complete this topic Meningococcal Immunization (ACWY) Aged Out No longer eligible based on patient's age to complete this topic Rotavirus Immunization Aged Out No lo nger eligible based on patient's age to complete this topic Insurance MEDICARE C [facility] Care Teams Mortgage Loan Coordinator Relationship Specialty Start Date End Date Farhad Marsahll MD PCP - General Family Medicine 12/22/22 Rupal Taveras, HOME OFFICE REPRESENTATIVE, HONING MACHINE SET UP OPERATOR TOOL [address] [place] [address] Nurse Practitioner Advanced Practice Nurse 12/22/22
--- OUTSIDE RECORDS SUMMARY | 2024-11-26 08:46 | XMS_ITS | Encounter Summary ---
Author Organization [facility] Address [address], [place] [address] Phone Care Team Providers Care Windows Architect Name Role Phone Tito Hoyos MD Primary Care Provider [phone] Reason for Visit * Reason Comments Med Refill Encounter Details Date Type Department Care Team (Late st Contact Info) Description 06/29/2018 Refill [facility] Nephrology and Hypertension [facility]4 [facility], [place] [address] Lisette Cao MD [facility]4 [facility], [address] [place] [address] Social History Tobacco Use Types Packs/Day Years [...] on filedocumented in this encounter Care Teams Windows Architect Relationship Specialty Start Date End Date Tito Hoyos MD [address] [place] [address] PCP - General Family Medicine 12/05/18 documented as of this encounter
--- OUTSIDE RECORDS SUMMARY | 2024-11-26 08:46 | XMS_ITS | Encounter Summary ---
Author Organization [facility] Address [address] [address] Phone Care Team Providers Care Binder Technician Name Role Phone Tito Hoyos MD Primary Care Provider [phone] Reason for Visit * Reason Comments Med Refill Encounter Details Date Type Department Care Team (Late st Contact Info) Description 07/05/2021 Refill [facility] Nephrology and Hypertension [address] [place] [address], [address] [place], [place] [address] Lisette Cao MD [facility]4 [facility], [address] [place] [address] Social History Tobacco Use Types Packs/Day Years [...] on filedocumented in this encounter Care Teams Binder Technician Relationship Specialty Start Date End Date Tito Hoyos MD [address] [place] [address] PCP - General Family Medicine 12/05/18 documented as of this encounter
--- OUTSIDE RECORDS SUMMARY | 2024-11-26 08:46 | XMS_ITS | Encounter Summary ---
Author Organization [facility] Address [address], [place] [address] Phone Care Team Providers Care Director Of Public Health Name Role Phone Tito Hoyos MD Primary Care Provider [phone] Reason for Visit * Reason Comments Med Refill Encounter Details Date Type Department Care Team (Late st Contact Info) Description 11/29/2019 Refill [facility] Nephrology and Hypertension [address] [place] [address], [address] [place], [place] [address] Lisette Cao MD [address] [facility], [address] [place] [address] Social History Tobacco Use Types Packs/Day Years [...] filedocumented in this encounter Care Teams Director Of Public Health Relationship Specialty Start Date End Date Tito Hoyos MD [address] [place] [address] PCP - General Family Medicine 12/05/18 documented as of this encounter
--- OUTSIDE RECORDS SUMMARY | 2024-11-26 08:46 | XMS_ITS | Encounter Summary ---
Author Organization [facility] Address [address] [address] Phone Care Team Providers Care Barrel Cleaner Name Role Phone Tito Hoyos MD Primary Care Provider [phone] Reason for Visit * Reason Comments Med Refill Encounter Details Date Type Department Care Team (Late st Contact Info) Description 12/26/2020 Refill [facility] Nephrology and Hypertension [address] [place] [address], [address] [place], [place] [address] Lisette Cao MD [facility], [address] [place] [address] Social History Tobacco Use Types Packs/Day Years [...] on filedocumented in this encounter Care Teams Barrel Cleaner Relationship Specialty Start Date End Date Tito Hoyos MD [address] [place] [address] PCP - General Family Medicine 12/05/18 documented as of this encounter
--- OUTSIDE RECORDS SUMMARY | 2024-11-26 08:46 | XMS_ITS | Encounter Summary ---
Author Organization [facility] Address [address], [place] [address] Phone Care Team Providers Care Assembly Hand Name Role Phone Tito Hoyos MD Primary Care Provider [phone] Reason for Visit * Reason Comments Med Refill Encounter Details Date Type Department Care Team (Late st Contact Info) Description 07/18/2018 Refill [facility] Nephrology and Hypertension [address] [place] [address], [address] [place], [place] [address] Lisette Cao MD [address] [facility], [address] [place] [address] Social History Tobacco Use Types Packs/Day Years [...] on filedocumented in this encounter Care Teams Assembly Hand Relationship Specialty Start Date End Date Tito Hoyos MD [address] [place] [address] PCP - General Family Medicine 12/05/18 documented as of this encounter
--- OUTSIDE RECORDS SUMMARY | 2024-11-26 08:46 | XMS_ITS | Encounter Summary ---
Author Organization [facility] Address [address], [place] [address] Phone Care Team Providers Care Loom Operator Apprentice Name Role Phone Tito Hoyos MD Primary Care Provider [phone] Reason for Visit * Reason Comments Med Refill Encounter Details Date Type Department Care Team (Late st Contact Info) Description 03/18/2021 Refill [facility] Nephrology and Hypertension [address] [place] [address], [address] [place], [place] [address] Lisette Cao MD [facility]4 [facility], [address] [place] [address] Social History Tobacco Use Types Packs/Day Years [...] on filedocumented in this encounter Care Teams Loom Operator Apprentice Relationship Specialty Start Date End Date Tito Hoyos MD [address] [place] [address] PCP - General Family Medicine 12/05/18 documented as of this encounter
--- OUTSIDE RECORDS SUMMARY | 2024-11-26 08:46 | XMS_ITS | Clinical Summary ---
Author Organization [facility] Address [address], [place] [address] Phone Care Team Providers Care Control Specialist Name Role Phone Tito Hoyos MD Primary Care Provider [phone] Allergies Active Allergy Reactions Criticality Noted Date [...] on file Legal Sex Female 9:35 AM [facility] Gender Identity Not on file Sexual [...] 11:28 AM CDT Height 157.5 cm (5' 2) 08/26/2019 11:28 AM CDT Body Mass Index 32.74 08/26/2019 11:28 AM CDT Plan of Treatment Health Maintenance Due Date Last Done Comments Pneumococcal PPSV23/PCV13 65 + Years / Low and Medium Risk (2 of 3 - PCV20 or PCV21) 11/08/2016 11/09/2015 Influenza Vaccine (#1) 2024 Insurance MEDICARE Advance Directives For more information, please contact: [phone] (7AM - 4PM [facility]/[place], 7 days a week) Documents on File Type Date Recorded Patient Cdl Company Driver Expl anation Power of Reinforcing Iron Worker Helper 06/16/2018 3:03 PM Ely [id number] Care Teams Control Specialist Relationship Specialty Start Date End Date Tito Hoyos MD [address] [place] [address] PCP - General Family Medicine 12/05/18
--- OUTSIDE RECORDS SUMMARY | 2024-11-26 08:46 | XMS_ITS | Encounter Summary ---
Author Organization [facility] Address [address], [place] [address] Phone Care Team Providers Care Ab Initio Etl Developer Name Role Phone Tito Hoyos MD Primary Care Provider [phone] Reason for Visit * Reason Comments Med Refill Encounter Details Date Type Department Care Team (Late st Contact Info) Description 03/18/2021 Refill [facility] Nephrology and Hypertension [address] [place] [address], [address] [place], [place] [address] Lisette Cao MD [facility]4 [facility], [address] [place] [address] Social History Tobacco Use Types Packs/Day Years [...] on filedocumented in this encounter Care Teams Ab Initio Etl Developer Relationship Specialty Start Date End Date Tito Hoyos MD [address] [place] [address] PCP - General Family Medicine 12/05/18 documented as of this encounter
--- OUTSIDE RECORDS SUMMARY | 2024-11-26 08:46 | XMS_ITS | Encounter Summary ---
Author Organization [facility] Address [address] [address] Phone Care Team Providers Care Security Infrastructure Engineer Name Role Phone Tito Hoyos MD Primary Care Provider [phone] Reason for Visit * Reason Comments Med Refill Encounter Details Date Type Department Care Team (Late st Contact Info) Description 06/13/2018 Refill [facility] Nephrology and Hypertension [address] [place] [address], [address] [place], [place] [address] Lisette Cao MD [address] [facility], [address] [place] [address] Social History Tobacco Use Types Packs/Day Years [...] on filedocumented in this encounter Care Teams Security Infrastructure Engineer Relationship Specialty Start Date End Date Tito Hoyos MD [address] [place] [address] PCP - General Family Medicine 12/05/18 documented as of this encounter
--- OUTSIDE RECORDS SUMMARY | 2024-11-26 08:47 | XMS_ITS | Clinical Summary ---
Author Organization [facility] Address [address] [place] [address] Care Team Providers Care Heat And Frost Insulator Name Role Phone Farhad Marshall MD Primary Care Provider [phone] Allergies Active Allergy Reactions Criticality Noted Date [...] Encounters Date Type Department Care Team Description 11/19/2024 External Device Data STL ABSTRACTION Provider, Abstract 11/12/2024 External Device Data STL ABSTRACTION Provider, Abstract 11/05/2024 External Device Data STL ABSTRACTION Provider, Abstract 10/24/2024 Telephone [facility] Oncology and Hematology - [address] [place] [address] Eric Ricardo MD labs for appt 10/16/2024 External Device Data STL ABSTRACTION Provider, Abstract 10/01/2024 External Device Data STL ABSTRACTION Provider, Abstract 09/11/2024 External Device Data STL ABSTRACTION Provider, Abstract 09/11/2024 External Device Data STL ABSTRACTION Provider, Abstract [...] on file Legal Sex Female 12:27 PM CHIEF BUSINESS DEVELOPMENT OFFICER Gender Identity Not on file Sexual Orientation [...] A M CDT Height 154.9 cm (5' 1) 03/19/2024 1:59 PM CHIEF BUSINESS DEVELOPMENT OFFICER Body Mass Index 28.64 03/19/2024 1:59 PM CHIEF BUSINESS DEVELOPMENT OFFICER Plan of Treatment Upcoming Encounters Date Type Department Care Team (Late st Contact Info) Description 01/03/2025 11:30 AM CHIEF BUSINESS DEVELOPMENT OFFICER Office Visit [facility] Oncology and Hematology - [place] [address] [facility] [address] [place] [address] Eric Ricardo MD [address] [facility] [address] [place] [address] Health Maintenance Due Date Last [...] years 1-dose series) 2014 PNEUMOCOCCAL VACCINE 50+ YEA RS (2 of 2 - PPSV23, PCV20, or PCV21) 01/04/2016 11/09/2015 OSTEOPOROSIS SCREENING 05/19/2019 INFLUENZA VACCINE (#1) [address] [facility] M[facility] Care Teams Heat And Frost Insulator Relationship Specialty Start Date End Date Fahrad Marshall MD [address] [place] [address] PCP - General Family Practice 01/19/24
[2024-11-26 09:17] LABS: Hematocrit 36.0 % (37.0-47.0); Hemoglobin 11.8 g/dL (12.0-15.0); Immature Granulocyte Percent A 0.4 % (0-0.5); Lymphocytes Absolute Auto 1.66 K/mm3 (0.9-3.2); Mean Corpuscular HGB Conc 32.8 g/dl (32-36); Mean Corpuscular Hemoglobin 28.4 pg (26-34); Mean Corpuscular Volume 86.7 fl (80-100); Nucleated Red Blood Cells Absolute Auto 0.000 K/mm3 (0.0-0.012); Nucleated Red Blood Cells Perc 0.0 % (0.0-0.2); Platelet Count Result 405 k/mm3 (150-375); Red Blood Count 4.15 M/mm3 (4.2-5.4); White Blood Count 10.3 K/mm3 (4.5-10.0)
[2024-11-26 09:43] LABS: Alanine Aminotransferase 14 U/L (6-35); Albumin Level 3.8 g/dL (3.5-5.1); Alkaline Phosphatase 80 U/L (38-126); Anion Gap 10 mmol/L (4-12); Aspartate Amino Transferase 25 U/L (14-36); Bilirubin,Total 0.3 mg/dL (0.2-1.3); Blood Urea Nitrogen 12 mg/dL (7-17); Calcium 8.9 mg/dL (8.4-10.2); Carbon Dioxide 21 mmol/L (22-30); Chloride 96 mmol/L (98-107); Estimated Glomerular Filt Rate > 60; Glucose 98 mg/dL (65-110); Hemoglobin A1C 6.0 % (<5.7); Potassium 3.9 mmol/L (3.4-5.0); Sodium 127 mmol/L (137-145); Total Protein 6.8 g/dL (6.3-8.2)
[2024-11-26 10:38] LABS: Vitamin B12 885.0 pg/mL (239-931)
== END 2024-11-26 08:34 | disposition home or self-care (01) ==
PROVIDERS: PCP Family Medicine; Visit Provider Family Medicine
DX: I10 Essential (primary) hypertension (principal); R73.03 Prediabetes; K21.9 Gastro-esophageal reflux disease without esophagitis; M79.7 Fibromyalgia; J44.9 Chronic obstructive pulmonary disease, unspecified; R91.8 Other nonspecific abnormal finding of lung field; E66.9 Obesity, unspecified; Z68.27 Body mass index [BMI] 27.0-27.9, adult; Z79.899 Other long term (current) drug therapy
CPT/HCPCS: 36415; 80053; 82306; 82607; 83036; 85025

== ENCOUNTER 2024-11-29 12:55 | Outpatient (CLI) | payer MEDICARE, SELFPAY ==
--- OUTSIDE RECORDS SUMMARY | 2009-04-02 07:30 | XMS_ITS | Continuity of Care Document ---
Author Organization [facility] Address [address] [place] [address] Phone Care Team Providers Care Diesel Engine Operator Name Role Phone Birch OD, Turner Unavailable Unavailable Procedures Procedure Date Eye Exam & Treatment Refraction Advance Directives Directive Yes / No Effective Date File Name No Information Encounters Encounter Description Practice Location Reason(s) For Visit Diagnoses Date Provider Providers Copied on Encounter Formerly [facility], [address], [place], [place], [id number], [place] tel:[phone] [facility] No Information [phone] Birch OD Turner. [address] , [address], [place], [address], [place]. tel:[phone] Family History Family Member Type Diagnosis Age At Onset No Information Payers Payer name Insurance type Covered green party ID Authoriza tion(s) Medicare [facility] [id number] Social History Type Description Quantity Date Captured [...]
--- NOTE | ~2024-11-29 | US_ITS ---
EXAMINATION: US soft tissue UE RT, 11/29/2024 13:15 CDT HISTORY: M79.89 - Other specified soft tissue disorders Comparison: None Technique: Adamson-scale and color Doppler images were obtained FINDINGS: Correlating with the palpable area there is a solid-appearing subcutaneous focus measuring 4.8 x 1 x 5.3 cm without abnormal flow. IMPRESSION: Probable large subcutaneous lipoma. If there is pain in this location or there remains clinical concern CT or MRI is recommended to assess Reviewed, dictated and finalized at location P. IMPRESSION: Probable large subcutaneous lipoma. If there is pain in this locati on or there remains clinical concern CT or MRI is recommended to assess
--- OUTSIDE RECORDS SUMMARY | 2024-11-29 13:01 | XMS_ITS | Encounter Summary ---
Author Organization [facility] Address [address] [address] Phone Care Team Providers Care Mica Washer Gluer Name Role Phone Tito Hoyos MD Primary Care Provider [phone] Reason for Visit * Reason Comments Med Refill Encounter Details Date Type Department Care Team (Late st Contact Info) Description 06/13/2018 Refill [facility] Nephrology and Hypertension [address] [place] [address], [address] [place], [place] [address] Lisette Cao MD [address] [facility], [address] [place] [address] Social History Tobacco Use Types Packs/Day Years [...] on filedocumented in this encounter Care Teams Mica Washer Gluer Relationship Specialty Start Date End Date Tito Hoyos MD [address] [place] [address] PCP - General Family Medicine 12/05/18 documented as of this encounter
--- OUTSIDE RECORDS SUMMARY | 2024-11-29 13:01 | XMS_ITS | Encounter Summary ---
Author Organization [facility] Address [address] [address] Phone Care Team Providers Care Sales And Service Agent Name Role Phone Tito Hoyos MD Primary Care Provider [phone] Reason for Visit * Reason Comments Med Refill Encounter Details Date Type Department Care Team (Late st Contact Info) Description 03/18/2021 Refill [facility] Nephrology and Hypertension [address] [place] [address], [address] [place], [place] [address] Lisette Cao MD [facility]4 [facility], [address] [place] [address] Social History Tobacco Use Types Packs/Day Years [...] on filedocumented in this encounter Care Teams Sales And Service Agent Relationship Specialty Start Date End Date Tito Hoyos MD [address] [place] [address] PCP - General Family Medicine 12/05/18 documented as of this encounter
--- OUTSIDE RECORDS SUMMARY | 2024-11-29 13:01 | XMS_ITS | Encounter Summary ---
Author Organization [facility] Address [address] [address] Phone Care Team Providers Care Radio Repair Teacher Name Role Phone Tito Hoyos MD Primary Care Provider [phone] Reason for Visit * Reason Comments Med Refill Encounter Details Date Type Department Care Team (Late st Contact Info) Description 06/29/2018 Refill [facility] Nephrology and Hypertension [facility]4 [facility], [place] [address] Lisette Cao MD [facility]4 [facility], [address] [place] [address] Social History Tobacco Use Types Packs/Day Years [...] on filedocumented in this encounter Care Teams Radio Repair Teacher Relationship Specialty Start Date End Date Tito Hoyos MD [address] [place] [address] PCP - General Family Medicine 12/05/18 documented as of this encounter
--- OUTSIDE RECORDS SUMMARY | 2024-11-29 13:01 | XMS_ITS | Clinical Summary ---
Author Organization [facility] Address [address], [place] [address] Phone Care Team Providers Care Systems Integration Engineer Name Role Phone Tito Hoyos MD Primary Care Provider [phone] Allergies Active Allergy Reactions Criticality Noted Date [...] on file Legal Sex Female 9:35 AM [facility] Gender Identity Not on file Sexual Orientation [...] Advance Directives For more information, please contact: [phone] (7AM - 4PM [facility]/[place], 7 days a week) Documents on File Type Date Recorded Patient Wash Rack Operator Expl anation Power of Branch Banker 06/16/2018 3:03 PM Ely [email or web address] Care Teams Systems Integration Engineer Relationship Specialty Start Date End Date Tito Hoyos MD [address] [place] [address] PCP - General Family Medicine 12/05/18
--- OUTSIDE RECORDS SUMMARY | 2024-11-29 13:01 | XMS_ITS | Encounter Summary ---
Author Organization [facility] Address [address], [place] [address] Phone Care Team Providers Care Oracle Reports Developer Name Role Phone Tito Hoyos MD Primary Care Provider [phone] Reason for Visit * Reason Comments Med Refill Encounter Details Date Type Department Care Team (Late st Contact Info) Description 11/29/2019 Refill [facility] Nephrology and Hypertension [address] [place] [address], [address] [place], [place] [address] Lisette Cao MD [address] [facility], [address] [place] [address] Social History Tobacco Use Types Packs/Day Years [...] on filedocumented in this encounter Care Teams Oracle Reports Developer Relationship Specialty Start Date End Date Tito Hoyos MD [address] [place] [address] PCP - General Family Medicine 12/05/18 documented as of this encounter
--- OUTSIDE RECORDS SUMMARY | 2024-11-29 13:01 | XMS_ITS | Encounter Summary ---
Author Organization [facility] Address [address], [place] [address] Phone Care Team Providers Care Solar Energy System Installer Helper Name Role Phone Tito Hoyos MD Primary Care Provider [phone] Reason for Visit * Reason Comments Med Refill Encounter Details Date Type Department Care Team (Late st Contact Info) Description 06/28/2018 Refill [facility] Nephrology and Hypertension [facility], [place] [address] Lisette Cao MD [facility]4 [facility], [address] [place] [address] Social History Tobacco Use Types Packs/Day Years [...] on filedocumented in this encounter Care Teams Solar Energy System Installer Helper Relationship Specialty Start Date End Date Tito Hoyos MD [address] [place] [address] PCP - General Family Medicine 12/05/18 documented as of this encounter
--- OUTSIDE RECORDS SUMMARY | 2024-11-29 13:01 | XMS_ITS | Encounter Summary ---
Author Organization [facility] Address [address] [address] Phone Care Team Providers Care Artificial Limb Fitter Name Role Phone Tito Hoyos MD Primary Care Provider [phone] Reason for Visit * Reason Comments Med Refill Encounter Details Date Type Department Care Team (Late st Contact Info) Description 07/18/2018 Refill [facility] Nephrology and Hypertension [address] [place] [address], [address] [place], [place] [id number] Lisette Cao MD [address] [facility], [address] [place] [address] Social History Tobacco Use Types Packs/Day Years [...] on filedocumented in this encounter Care Teams Artificial Limb Fitter Relationship Specialty Start Date End Date Tito Hoyos MD [address] [place] [address] PCP - General Family Medicine 12/05/18 documented as of this encounter
--- OUTSIDE RECORDS SUMMARY | 2024-11-29 13:01 | XMS_ITS | Encounter Summary ---
Author Organization [facility] Address [address], [place] [address] Phone Care Team Providers Care Water Resources Engineer Name Role Phone Tito Hoyos MD Primary Care Provider [phone] Reason for Visit * Reason Comments Med Refill Encounter Details Date Type Department Care Team (Late st Contact Info) Description 07/05/2021 Refill [facility] Nephrology and Hypertension [address] [place] [address], [address] [place], [place] [address] Lisette Cao MD [facility], [address] [place] [address] Social History Tobacco Use Types Packs/Day Years [...] on filedocumented in this encounter Care Teams Water Resources Engineer Relationship Specialty Start Date End Date Tito Hoyos MD [address] [place] [address] PCP - General Family Medicine 12/05/18 documented as of this encounter
--- OUTSIDE RECORDS SUMMARY | 2024-11-29 13:01 | XMS_ITS | Encounter Summary ---
Author Organization [facility] Address [address], [place] [address] Phone Care Team Providers Care Pavilion Cutter Name Role Phone Tito Hoyos MD Primary Care Provider [phone] Reason for Visit * Reason Comments Med Refill Encounter Details Date Type Department Care Team (Late st Contact Info) Description 03/18/2021 Refill [facility] Nephrology and Hypertension [address] [place] [address], [address] [place], [place] [id number] Lisette Cao MD [facility]4 [facility], [address] [place] [address] Social History Tobacco Use Types Packs/Day Years [...] on filedocumented in this encounter Care Teams Pavilion Cutter Relationship Specialty Start Date End Date Tito Hoyos MD [address] [place] [address] PCP - General Family Medicine 12/05/18 documented as of this encounter
--- OUTSIDE RECORDS SUMMARY | 2024-11-29 13:01 | XMS_ITS | Clinical Summary ---
Author Organization [facility] - [facility]UROLOGY [facility] Address [address] [place] [address] Phone Care Team Providers Care Salad Counter Attendant Name Role Phone Farhad Marshall MD Primary Care Provider [phone] Rupal Taveras APRN, CABLE SPLICER HELPER Unavailable [phone] Allergies Active Allergy Reactions Criticality Noted Date [...] Comments Blood Pressure 120/74 04/17/2023 9:28 AM BUTADIENE CONVERTOR OPERATOR Pulse 91 04/17/2023 9:28 AM BUTADIENE CONVERTOR OPERATOR Temperature 36.4 C (97.6 F) 04/17/2023 9:28 AM BUTADIENE CONVERTOR OPERATOR Respiratory Rate 18 04/17/2023 9:28 AM BUTADIENE CONVERTOR OPERATOR Oxygen Saturation 96% 04/17/2023 9:28 AM BUTADIENE CONVERTOR OPERATOR Inhaled Oxygen Concentration - - Weight 82.7 kg (182 lb 6.4 oz) 04/17/2023 9:28 A M BUTADIENE CONVERTOR OPERATOR Height 154.9 cm (5' 1) 04/17/2023 9:28 AM BUTADIENE CONVERTOR OPERATOR Body Mass Index 34.46 04/17/2023 9:28 AM BUTADIENE CONVERTOR OPERATOR Plan of Treatment Health Maintenance Due [...] to complete this topic Insurance MEDICARE C [employer] - [facility] [address] Care Teams Salad Counter Attendant Relationship Specialty Start Date End Date Farhad Marshall MD PCP - General Family Medicine 12/22/22 Rupal Taveras, LITIGATION SPECIALIST, CABLE SPLICER HELPER [address] [place] [address] Nurse Practitioner Advanced Practice Nurse 12/22/22
--- OUTSIDE RECORDS SUMMARY | 2024-11-29 13:01 | XMS_ITS | Clinical Summary ---
Author Organization [facility] Address [address] [place] [address] Care Team Providers Care Brim Flexer Name Role Phone Farhad Marshall MD Primary Care Provider [phone] Allergies Active Allergy Reactions Criticality Noted Date [...] Data STL ABSTRACTION Provider, Abstract 10/24/2024 Telephone [facility] Oncology and Hematology - [place] [address] [place] [address] Eric Ricardo MD labs for appt [...] on file Legal Sex Female 12:27 PM OTORHINOLARYNGOLOGIST Gender Identity Not on file Sexual Orientation [...] 154.9 cm (5' 1) 03/19/2024 1:59 PM OTORHINOLARYNGOLOGIST Body Mass Index 28.64 03/19/2024 1:59 PM OTORHINOLARYNGOLOGIST Plan of Treatment Upcoming Encounters Date Type Department Care Team (Late st Contact Info) Description 01/03/2025 11:30 AM OTORHINOLARYNGOLOGIST Office Visit [facility] Oncology and Hematology - [place] [address] [facility] [address] [place] [address] Eric Ricardo MD [address] [facility] [address] [place] [address] Health Maintenance Due Date Last [...] SCREENING 05/19/2019 INFLUENZA VACCINE (#1) 2024 Insurance [facility] Care Teams Brim Flexer Relationship Specialty Start Date End Date Farhad Marshall MD [address] [place] [address] PCP - General Family Practice 01/19/24
--- OUTSIDE RECORDS SUMMARY | 2024-11-29 13:01 | XMS_ITS | Encounter Summary ---
Author Organization [facility] Address [address], [place] [address] Phone Care Team Providers Care Housekeeper Cleaning Cooking Name Role Phone Tito Hoyos MD Primary Care Provider [phone] Reason for Visit * Reason Comments Med Refill Encounter Details Date Type Department Care Team (Late st Contact Info) Description 12/26/2020 Refill [facility] Nephrology and Hypertension [address] [place] [address], [address] [place], [place] [phone] Lisette Cao MD [facility]4 [facility], [address] [place] [address] Social History Tobacco Use Types Packs/Day Years [...] on filedocumented in this encounter Care Teams Housekeeper Cleaning Cooking Relationship Specialty Start Date End Date Tito Hoyos MD [address] [place] [address] PCP - General Family Medicine 12/05/18 documented as of this encounter
== END 2024-11-29 12:56 | disposition home or self-care (01) ==
PROVIDERS: PCP Family Medicine; Visit Provider Family Medicine
DX: M79.89 Other specified soft tissue disorders (principal); R29.898 Other symptoms and signs involving the musculoskeletal system
CPT/HCPCS: 76882

== ENCOUNTER 2025-01-01 10:57 | Outpatient (CLI) | payer MEDICARE, SELFPAY ==
--- OUTSIDE RECORDS SUMMARY | 2009-04-02 06:30 | XMS_ITS | Continuity of Care Document ---
Author Organization [facility] Address [address] [place] [address] Phone Care Team Providers Care Rail Washer Name Role Phone Birch OD, Turner Unavailable Unavailable Procedures Procedure Date Eye Exam & Treatment Refraction Advance Directives Directive Yes / No Effective Date File Name No Information Encounters Encounter Description Practice Location Reason(s) For Visit Diagnoses Date Provider Providers Copied on Encounter Located within [facility], [address], [place], [place], [id number], [place] tel:[phone] [facility] No Information [phone] Birch OD Turner. [address] , [address], [place], [address], [place]. tel:[phone] Family History Family Member Type Diagnosis Age At Onset No Information Payers Payer name Insurance type Covered green party ID Authoriza tion(s) Medicare [facility] [id number] Social History Type Description Quantity Date Captured Comments Sex Female Smoking Status No Information Chief Complaint And Reason For Visit No Information Reason For Referral Reason For Referral No Information History Of Present Illness Encounter Date Complaint History Of Prese nt Illness No Information Functional Status Date Functional Assessmen t No Information Instructions Date Instruction Additional Infor mation No Information Assessments Type Assessment Date No Information Patient Care Teams Name Effective Dates (start - stop) Status Members No Information
[2025-01-01 11:30] LABS: Hematocrit 41.2 % (37.0-47.0); Hemoglobin 13.2 g/dL (12.0-15.0); Mean Corpuscular HGB Conc 32.0 g/dl (32-36); Mean Corpuscular Hemoglobin 29.1 pg (26-34); Mean Corpuscular Volume 90.9 fl (80-100); Platelet Count Result 384 k/mm3 (150-375); Red Blood Count 4.53 M/mm3 (4.2-5.4); White Blood Count 14.7 K/mm3 (4.5-10.0)
[2025-01-01 17:20] LABS: Iron 164 ug/dL (37-170)
[2025-01-01 17:30] LABS: Percent Iron Saturation 45 % (20-50)
[2025-01-01 17:58] LABS: Ferritin 15.40 ng/mL (11.1-264)
[2025-01-01 18:21] LABS: Vitamin B12 > 1000.0 pg/mL (239-931)
--- OUTSIDE RECORDS SUMMARY | 2025-01-02 10:38 | XMS_ITS | Clinical Summary ---
Author Organization [facility] - [facility] Address [address] [place] [address] Phone Care Team Providers Care Monorail Car Operator Name Role Phone Farhad Marshall MD Primary Care Provider [phone] Rupal Taveras APRN, DEPARTMENT CLERK Unavailable [phone] Allergies Active Allergy Reactions Criticality Noted Date [...] Comments Blood Pressure 120/74 04/17/2023 9:28 AM WINDOWS SECURITY ANALYST Pulse 91 04/17/2023 9:28 AM WINDOWS SECURITY ANALYST Temperature 36.4 C (97.6 F) 04/17/2023 9:28 AM WINDOWS SECURITY ANALYST Respiratory Rate 18 04/17/2023 9:28 AM WINDOWS SECURITY ANALYST Oxygen Saturation 96% 04/17/2023 9:28 AM WINDOWS SECURITY ANALYST Inhaled Oxygen Concentration - - Weight 82.7 kg (182 lb 6.4 oz) 04/17/2023 9:28 A M WINDOWS SECURITY ANALYST Height 154.9 cm (5' 1) 04/17/2023 9:28 AM WINDOWS SECURITY ANALYST Body Mass Index 34.46 04/17/2023 9:28 AM WINDOWS SECURITY ANALYST Plan of Treatment Health Maintenance Due Date [...] Zoster Immunization (2 of 2) 12/22/2022 10/27/2022 Medicare Initial AWV [id number] 03/30/2023 Influenza Immunization (#1) 2024 SARS-COV-2 Immunization ( [...] to complete this topic Insurance [id number] Care Teams Monorail Car Operator Relationship Specialty Start Date End Date Farhad Marshall MD PCP - General Family Medicine 12/22/22 Rupal Taveras, INSPECTOR AND MENDER, DEPARTMENT CLERK [address] [place] [address] Nurse Practitioner Advanced Practice Nurse 12/22/22
--- OUTSIDE RECORDS SUMMARY | 2025-01-02 10:39 | XMS_ITS | Clinical Summary ---
Author Organization [facility] Address [address] [place] [address] Care Team Providers Care Furniture Dipper Name Role Phone Farhad Marshall MD Primary Care Provider [phone] Allergies Active Allergy Reactions Criticality Noted Date [...] Encounters Date Type Department Care Team Description 12/18/2024 External Device Data STL ABSTRACTION Provider, Abstract 12/18/2024 External Device Data STL ABSTRACTION Provider, Abstract 11/19/2024 External Device Data STL ABSTRACTION Provider, Abstract 11/12/2024 External Device Data STL ABSTRACTION Provider, Abstract 11/05/2024 External Device Data STL ABSTRACTION Provider, Abstract 10/24/2024 Telephone [facility] Oncology and Hematology - [address] [address] Eric Ricardo MD labs for appt 10/16/2024 [...] on file Legal Sex Female 12:27 PM FOOD BROKER Gender Identity Not on file Sexual Orientation [...] 154.9 cm (5' 1) 03/19/2024 1:59 PM FOOD BROKER Body Mass Index 28.64 03/19/2024 1:59 PM FOOD BROKER Plan of Treatment Upcoming Encounters Date Type Department Care Team (Late st Contact Info) Description 01/03/2025 11:30 AM FOOD BROKER Office Visit [facility] Oncology and Hematology - [place] [address] [facility] [address] [place] [address] Eric Ricardo MD [address] [facility] [address] [place] [address] Health Maintenance Due Date Last [...] 5 years 05/19/1999 Lung Cancer Screening 2004 RSV VACCINE (60+ or ) (1 - Risk 50-74 years 1-dose series) 2004 ZOSTER VACCINE (1 of 2) 2004 DTAP/TDAP/TD VACCINES (1 - Tdap) 02/28/2010 02/27/19 11 PNEUMOCOCCAL VACCINE 50+ YEA RS (2 of 2 - PPSV23, PCV20, or PCV21) 01/04/2016 11/09/2015 OSTEOPOROSIS SCREENING 05/19/2019 INFLUENZA VACCINE (#1) [address] [place] [address] [place] [address] Care Teams Furniture Dipper Relationship Specialty Start Date End Date Farhad Marshall MD [address] [place] [address] PCP - General Family Practice 01/19/24
== END 2025-01-01 10:58 | disposition home or self-care (01) ==
LOC: ANHLAB 10:58
PROVIDERS: PCP Family Medicine; Visit Provider Internal Medicine Hematology & Oncology
DX: D64.9 Anemia, unspecified (principal)
CPT/HCPCS: 36415; 82607; 82728; 82746; 83540; 83550; 85027

== ENCOUNTER 2025-02-10 16:02 | Outpatient (CLI) | payer MEDICARE, SELFPAY ==
--- NOTE | ~2025-02-10 | XR_ITS ---
XR thoracic spine 3V Indication: chronic pain and limited range of motion Comparison: None Findings: Moderate loss of vertebral height throughout, remote appearing superior endplate fracture of T12, no acute fracture or subluxation. Moderate loss of disc height throughout. Soft tissues unremarkable Impression: No acute abnormality. Reviewed, dictated and finalized at location P. P BLOWER Impression: No acute abnormality.
--- NOTE | ~2025-02-10 | XR_ITS ---
XR lumbar spine 2-3V Indication: chronic pain and limited range of motion Comparison: None Findings: Remote appearing superior endplate fractures of T12-L1, no acute fracture or subluxation Moderate loss of disc at L5-S1, T12-L1 and L1-L2. Soft tissues unremarkable Impression: No acute abnormality. Reviewed, dictated and finalized at location P. ER Impression: No acute abnormality.
--- NOTE | ~2025-02-10 | XR_ITS ---
XR_CERV2-3V_CR Indication: chronic pain and limited range of motion Comparison: None Findings: The vertebral heights are intact. No fracture or subluxation. Moderate loss of disc height at C5-C6 and C6-7. Soft tissues unremarkable Impression: No acute abnormality. Reviewed, dictated and finalized at location P. ITORY REPRESENTATIVE Impression: No acute abnormality.
--- NOTE | ~2025-02-10 | XR_ITS ---
XR shoulder RT min 2V HISTORY: chronic pain and limited range of motion . COMPARISON: None. FINDINGS: 3 views of the right shoulder demonstrate no acute fracture or dislocation. Acromioclavicular joint and glenohumeral joint are unremarkable. IMPRESSION: No acute fracture or dislocation. Reviewed, dictated and finalized at location S. L MAKER
--- NOTE | ~2025-02-10 | XR_ITS ---
EXAMINATION: XR shoulder LT min 2V, 02/10/2025 16:25 SLURRY BLENDER HISTORY: chronic pain and limited range of motion COMPARISON: No comparisons available. Findings: No acute fracture or malalignment. Moderate degenerative changes Soft tissues unremarkable. Impression: No acute fracture or malalignment. Reviewed, dictated and finalized at location P. RY BLENDER Impression: No acute fracture or malalignment.
--- OUTSIDE RECORDS SUMMARY | 2025-02-10 18:09 | XMS_ITS | Clinical Summary ---
Author Organization [facility] Address [address], [place] [address] Phone Care Team Providers Care Emt B Name Role Phone Tito Hoyos MD Primary Care Provider [phone] Allergies Active Allergy Reactions Criticality Noted Date [...] on file Legal Sex Female 9:35 AM [facility] Gender Identity Not on file [...] Advance Directives For more information, please contact: [phone] (7AM - 4PM [facility], 7 days a week) Documents on File Type Date Recorded Patient Lean Manager Expl anation Power of Heating And Cooling Technician 06/16/2018 3:03 PM Ely [email or web address] Care Teams Emt B Relationship Specialty Start Date End Date Tito Hoyos MD [address] [place] [address] PCP - General Family Medicine 12/05/18
--- OUTSIDE RECORDS SUMMARY | 2025-02-10 18:09 | XMS_ITS | Encounter Summary ---
Author Organization [facility] Address [address], [place] [address] Phone Care Team Providers Care Reception Specialist Name Role Phone Tito Hoyos MD Primary Care Provider [phone] Reason for Visit * Reason Comments Med Refill Encounter Details Date Type Department Care Team (Late st Contact Info) Description 07/18/2018 Refill [facility] Nephrology and Hypertension [address] [place] [address], [address] [place], [place] [address] Lisette Cao MD [address] [facility], [address] [place] [address] Social History Tobacco Use Types Packs/Day Years [...] on filedocumented in this encounter Care Teams Reception Specialist Relationship Specialty Start Date End Date Tito Hoyos MD [address] [place] [address] PCP - General Family Medicine 12/05/18 documented as of this encounter
--- OUTSIDE RECORDS SUMMARY | 2025-02-10 18:09 | XMS_ITS | Encounter Summary ---
Author Organization [facility] Address [address], [place] [address] Phone Care Team Providers Care Cargo Vessel Stewardess Name Role Phone Tito Hoyos MD Primary Care Provider [phone] Reason for Visit * Reason Comments Med Refill Encounter Details Date Type Department Care Team (Late st Contact Info) Description 06/28/[address] [facility] Nephrology and Hypertension [facility]4 [facility], [place] [address] Lisette Cao MD [facility]4 [facility], [address] [place] [address] Social History Tobacco Use Types Packs/Day Years [...] on filedocumented in this encounter Care Teams Cargo Vessel Stewardess Relationship Specialty Start Date End Date Tito Hoyos MD [address] [place] [address] PCP - General Family Medicine 12/05/18 documented as of this encounter
--- OUTSIDE RECORDS SUMMARY | 2025-02-10 18:09 | XMS_ITS | Encounter Summary ---
Author Organization [facility] Address [address] [address] Phone Care Team Providers Care Registered Dietitian Name Role Phone Tito Hoyos MD Primary Care Provider [phone] Reason for Visit * Reason Comments Med Refill Encounter Details Date Type Department Care Team (Late st Contact Info) Description 03/18/2021 Refill [facility] Nephrology and Hypertension [address] [place] [address], [address] [place], [place] [phone] Lisette Cao MD [facility]4 [facility], [address] [place] [address] Social History Tobacco Use Types Packs/Day Years [...] on filedocumented in this encounter Care Teams Registered Dietitian Relationship Specialty Start Date End Date Tito Hoyos MD [address] [place] [address] PCP - General Family Medicine 12/05/18 documented as of this encounter
--- OUTSIDE RECORDS SUMMARY | 2025-02-10 18:09 | XMS_ITS | Encounter Summary ---
Author Organization [facility] Address [address], [place] [address] Phone Care Team Providers Care Transit Mixer Operator Name Role Phone Tito Hoyos MD Primary Care Provider [phone] Reason for Visit * Reason Comments Med Refill Encounter Details Date Type Department Care Team (Late st Contact Info) Description 11/29/2019 Refill [facility] Nephrology and Hypertension [address] [place] [address], [address] [place], [place] [address] Lisette Cao MD [address] [facility], [address] [place] [address] Social History Tobacco Use Types Packs/Day Years [...] on filedocumented in this encounter Care Teams Transit Mixer Operator Relationship Specialty Start Date End Date Tito Hoyos MD [address] [place] [address] PCP - General Family Medicine 12/05/18 documented as of this encounter
--- OUTSIDE RECORDS SUMMARY | 2025-02-10 18:09 | XMS_ITS | Encounter Summary ---
Author Organization [facility] Address [address], [place] [address] Phone Care Team Providers Care Toll Testboard Worker Name Role Phone Tito Hoyos MD Primary Care Provider [phone] Reason for Visit * Reason Comments Med Refill Encounter Details Date Type Department Care Team (Late st Contact Info) Description 03/18/2021 Refill [facility] Nephrology and Hypertension [address] [place] [address], [address] [place], [place] [address] Lisette Cao MD [facility], [address] [place] [address] Social History Tobacco Use Types Packs/Day Years [...] on filedocumented in this encounter Care Teams Toll Testboard Worker Relationship Specialty Start Date End Date Tito Hoyos MD [address] [place] [address] PCP - General Family Medicine 12/05/18 documented as of this encounter
--- OUTSIDE RECORDS SUMMARY | 2025-02-10 18:09 | XMS_ITS | Data Portability ---
Author Organization [facility] Jesika Suresh Address [address] [place] [address] Care Team Providers Care Yarn Polishing Machine Operator Name Role Phone KOREY SMITH Airplane Electrician EV WADSWORTH Precision Machine Operator [facility] FABI MARSHALL Primary Care Provider [phone] Assessment No assessment recorded. Plan of Treatment Reminders Order Date Submit Date Provider Last Modified By Organization Details Last Modified Time Details Appointments None recorded. Lab carcinoembr yonic Ag, quant, serum or plasma 2024 025 IPXI [facility], [address] [facility], [address], [place], [address], 5 04:36:12 vaginal pathogens panel, HIPOLITO+probe, vaginal fluid 2024 025 IPXI [facility], [address] [facility], [address], [place], [address], 5 03:35:58 surgical pathology study - 69 yo F, smoker, with pelvic US showing fibroid with central hypoechoic area concerning for necrotic changes as well as a cystic area in the endometrium measuring 14 mm (endometriu m w/o cyst measures 9.2 mm). EMB performed to rule out endometrial cancer. 2024 025 JOSE A [facility], [address] [facility], [facility] [address], [place], [address], 5 14:47:14 cytology report, thin prep, smear or scraping, cervical or vaginal 2022 023 JOSE A [facility], [address] [facility], [facility] [address], [place], [address], 4 14:38:05 biopsy, colposcopy - 6:00, ECC 2021 022 [email or web address] [facility], [address] [facility], [address], [place], [address], 2 11:32:09 Referral gynecologis t referral - Pelvic US performed 06/17/24 showed 1.6 cm fibroid with central hypoechoic area concerning for necrotic changes as well as a cystic area in the endometrium measuring 14 mm (endometriu m w/o cyst measures 9.2 mm). No vaginal bleeding. EMB with atrophic endometrium and without atypia. History of +hr-HPV but negative HPV with most recent co-test in 2022. 2024 025 [email or web address] [facility], [address] [place] [address], [address], 5 10:52:36 Procedures None recorded. Surgeries None recorded. Imaging None recorded. Medication Orders None recorded. Patient TargetsNo targets recorded. 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 No vaginal bleeding. EMB with atrophic endometrium and without atypia. History of +hr-HPV but negative HPV with most recent co-test in 2022. Referring Physician: Ev Wadsworth, Family Medicine, Encounter Date: 08/14/2024 Results Created Date Observation Date Name Description Value Unit Range Abnormal Flag Note LastModifiedBy Organization Detail LastModifiedTime 11/05/19 22 11/08/2021 PATHO LOGY EMERSON mckeon Mater ial submi tted: . PART A: cervi x - CERVI INOCENCIO BIOPS Y 6:00. Modif iers: 6:00 PART B: endoc ervix - ENDOC ERVIC AL CURET TAGE Not Available [facility] ([facility]) [address] [facility], [place], [address], 11/08/2021 16:36:14 11/05/19 22 11/08/2021 PATHO LOGY REPOR Woodrow Moya t Diagn osis: Part A: CERVI INOCENCIO BIOPS Y 6:00: KOILO CYTOS IS CONSI STENT WITH HUMAN PAPIL LOMAV IRUS (HPV) EFFEC T. Part B: ENDOC ERVIC AL CURET TAGE: MINUT E FRAGM ENTS OF BENIG N ENDOC ERVIC AL GLAND S, MUCUS AND INFLA MMATI ON. CDE 11/08 1507 Local Not Available [facility] ([facility]) [address] [facility], [place], [address], 11/08/2021 16:36:14 11/05/19 22 11/08/2021 PATHO LOGY REPOR T Wellington Moya t Kirk ontiveros d: . Imani chatterjee MD, Patho logis t Not Available [facility] ([facility]) [address] [facility], [place], [address], 11/08/2021 16:36:14 11/05/19 22 11/08/2021 PATHO LOGY REPOR T . Commen t Gross descr iptio n: . 2 Conta iners , forma [place]-f illed , label ed with patie nt ident ifica tion. Part A: CERVI INOCENCIO BIOPS Y 6:00: MINUT E FRAGM ENT(S ) OF HERNANDES MUCOI D TISSU E MEASU RING 0.4 X 0.2 X 0.2 CM IN AGGRE GATE. SUBMI TTED RECEI ARCENIO IN CASSE TTE(S ) A1. Part B: ENDOC ERVIC AL CURET TAGE: MINUT E FRAGM ENT(S ) OF MUCUS AND HEMOR RHAGI C MATER IAL MEASU RING 1.0 X 0.5 X 0.2 CM IN AGGRE GATE. FILTE RED AND SUBMI TTED IN CASSE TTE(S ) B1. MCL/M CL 11/05 1057 Local Not Available [facility] ([facility]) [address] [facility], [place], [address], 11/08/2021 16:36:14 11/05/19 22 11/08/2021 PATHO LOGY REPOR T . Commen t Patho logis t provi ded ICD-1 0: B97.7 Not Available [facility] ([facility]) [address] [facility], [place], [address], 11/08/2021 16:36:14 11/05/19 22 11/08/2021 PATHO LOGY REPOR T . Commen t CPT . 04541 1, 47148 2 Not Available [facility] ([facility]) [address] [facility], [place], [address], 11/08/2021 16:36:14 02/25/20 23 03/01/2023 IGP, APTIM A HPV, RFX 16/18 ,45 diagnosis: Commen t NEGAT DAVID FOR INTRA EPITH ELIAL LESIO N OR MALIG JAMES . Not Available [facility] ([facility]) [address] [place], [address], 03/01/2023 14:38:05 02/25/20 23 03/01/2023 IGP, APTIM A HPV, RFX 16/18 ,45 specimen adequacy: Nita mckeon Satis facto ry for evalu ation . Endoc ervic al and/o r squam ous metap lasti c cells (endo cervi inocencio compo nent) are prese nt. Not Available [facility] ([facility]) [address] [place], [address], 03/01/2023 14:38:05 02/25/20 23 03/01/2023 IGP, APTIM A HPV, RFX 16/18 ,45 clinician provided ICD10: Nita mckeon R87.8 10 Not Available [facility] ([facility]) [address] [place], [address], 03/01/2023 14:38:05 02/25/20 23 03/01/2023 IGP, APTIM A HPV, RFX 16/18 ,45 performed by: Nita Combs ams, Estela mckeon (ASCP ) Not Available [facility] ([facility]) [address] [place], [address], 03/01/2023 14:38:05 02/25/20 23 03/01/2023 IGP, APTIM A HPV, RFX 16/18 ,45 . . Not Available [facility] ([facility]) [address] [place], [address], 03/01/2023 14:38:05 02/25/20 23 03/01/2023 IGP, APTIM A HPV, RFX 16/18 ,45 note: Nita mckeon The Pap smear is a scree taran test desian pablo to aid in the detec tion of maty ligna nt and malian hernandez condi tions of the uteri ne cervi x. It is not a diagn ostic proce dure and shoul d not be used as the sole means of detec ting cervi inocencio cance r. Both false -posi tive and false -nega tive repor ts do occur . Not Available [facility] ([facility]) [address] [place], [address], 03/01/2023 14:38:05 02/25/20 23 03/01/2023 IGP, APTIM A HPV, RFX 16/18 ,45 test methodology: Commen t This liqui d based ThinP rep(R ) pap test was odilon pablo with the use of an image guide bhargav villela. Not Available [facility] ([facility]) [address] [place], [address], 03/01/2023 14:38:05 02/25/20 23 03/01/2023 IGP, APTIM A HPV, RFX 16/18 ,45 HPV aptima Negati ve negati ve This nucle ic acid ampli ficat ion test detec ts fourt een high- risk HPV types (16,1 8,31, 33,35 ,39,4 5,51, 52,56 ,58,5 9,66, 68) witho ut diffe renti ation . Not Available [facility] ([facility]) [address] [place], [address], 03/01/2023 14:38:05 02/25/20 23 03/01/2023 IGP, APTIM A HPV, RFX 16/18 ,45 HPV genotype reflex Commen t Crite nancy not met, HPV Genot ype not perfo rmed. Not Available [facility] ([facility]) [address] [place], [address], 03/01/2023 14:38:05 08/09/19 25 08/09/2024 NUSWA B VAGIN ITIS PLUS (VG+) atopobium vaginae LOW - 0 score Not Available [facility] ([facility]) [address] [facility], [place], [address], 08/10/2024 03:35:58 08/09/19 25 08/09/2024 NUSWA B VAGIN ITIS PLUS (VG+) bvab 2 LOW - 0 score Not Available [facility] ([facility]) [address] [facility], [place], [address], 08/10/2024 03:35:58 08/09/19 25 08/09/2024 NUA B VAGIN ITIS PLUS (VG+) megasphaera 1 LOW - 0 score Calcu late total score by shayleein g the 3 indiv idual bacte rial vagin osis (BV) marke r score s toget her. Total score is inter prete d as follo ws: Total score 0-1: Indic ates the absen ce of BV. Total score 2: Indet ermin ate for BV. Addit ional clini inocencio data shoul d be evalu ated to estab gennaro a diagn osis. Total score 3-6: Indic ates the prese nce of BV. Not Available [facility] ([facility]) [address] [facility], [place], [address], 08/10/2024 03:35:58 08/09/19 25 08/09/2024 NUA B VAGIN ITIS PLUS (VG+) cristiana albicans, HIPOLITO NEGATI VE negati ve Not Available [facility] ([facility]) [address] [facility], [place], [address], 08/10/2024 03:35:58 08/09/19 25 08/09/2024 NUSWA B VAGIN ITIS PLUS (VG+) cristiana glabrata, HIPOLITO NEGATI VE negati ve Not Available [facility] ([facility]) [address] [facility], [place], [address], 08/10/2024 03:35:58 08/09/19 25 08/09/2024 NUA B VAGIN ITIS PLUS (VG+) trich vag by HIPOLITO NEGATI VE negati ve Not Available [facility] ([facility]) [address] [facility], [place], [address], 08/10/2024 03:35:58 08/09/19 25 08/09/2024 NUA B VAGIN ITIS PLUS (VG+) chlamydia trachomatis, HIPOLITO NEGATI VE negati ve Not Available [facility] ([facility]) [address] [facility], [place], [address], 08/10/2024 03:35:58 08/09/19 25 08/09/2024 NUA B VAGIN ITIS PLUS (VG+) neisseria gonorrhoeae, HIPOLITO NEGATI VE negati ve Not Available [facility] ([facility]) [address] [facility], [place], [address], 08/10/2024 03:35:58 08/09/19 25 08/13/2024 PATHO LOGY REPOR T . COMMEN T Mater ial submi tted: . endom etriu m - EMB Not Available [facility] ([facility]) [address] [facility], [place], [address], 08/13/2024 14:47:14 08/09/1908/13/2024 PATHO LOGY REPOR T . COMMEN T Clini mayi provi ded ICD-1 0: N85.8 Not Available [facility] ([facility]) [address] [facility], [place], [address], 08/13/2024 14:47:14 08/09/1908/13/2024 PATHO LOGY REPOR T . COMMEN T Diagn osis: EMB: STRIP S OF ATROP HIC ENDOM ETRIU M. NO ATYPI A. GXA 08/13 1057 Local Not Available [facility] ([facility]) [address] [facility], [place], [address], 08/13/2024 14:47:14 08/09/19 25 08/13/2024 PATHO LOGY REPOR T . COMMEN T Kirk ontiveros d: . Curt bowman MD, Patho logis t Not Available [facility] ([facility]) [address] [facility], [place], [address], 08/13/2024 14:47:14 08/09/1908/13/2024 PATHO LOGY REPOR T . COMMEN T Gross descr iptio n: . 1 Conta iner, forma [place]-f illed , label ed with patie nt ident ifica tion. EMB: SCANT FRAGM ENT(S ) OF MUCUS AND HEMOR RHAGI C MATER IAL MEASU RING 1.0 X 0.3 X 0.1 CM IN AGGRE GATE. FILTE RED AND SUBMI TTED IN CASSE TTE(S ) A1. /Bhargav QUIÑONES 08/12 0139 Local Not Available [facility] ([facility]) [address] [facility], [place], [address], 08/13/2024 14:47:14 08/09/19 25 08/13/2024 PATHO LOGY REPOR T . COMMEN T Patho logis t provi ded ICD-1 0: N95.0 Not Available [facility] ([facility]) [address] [facility], [place], [address], 08/13/2024 14:47:14 08/09/19 25 08/13/2024 PATHO LOGY REPOR T . COMMEN T CPT . 84623 1 Not Available [facility] ([facility]) [address] [facility], [place], [address], 08/13/2024 14:47:14 08/15/19 25 08/17/2024 CEA cea 1.1 NG/mL 0.0-4. 7 Nonsm okers <3.9 Smoke rs <5.6 Tiffanie Diagn ostic s Elect tiffanie milum inesc ence Immun oassa y (ECLI A) Value s obtai bev with diffe rent assay metho ds or kits canno t be used inter ortiz eably . Resul ts canno t be inter prete d as absol isabel evide nce of the prese nce or absen ce of fox mendez se. Not Available [facility] ([facility]) [address] [facility], [place], [address], 08/17/2024 04:36:12 03/05/19 23 03/04/2022 MAMMO , scree taran, digit al, bilat eral No observ ation record ed. [address], [place], [address], 03/07/2022 11:17:13 04/06/19 24 04/06/2023 MAMMO , scree taran, digit al, bilat eral No observ ation record ed. [address], [place], [address], 04/07/2023 11:38:58 08/08/19 25 06/17/2024 US, trans vagin al No observ ation record ed. BARCODE Not Available 2024 15:00:01 Result Notes None recorded. Problems Name Problem SNOMED Code Status Onset Date Resolution Date Notes Provider Name and Address Organization Details Recorded Time Abnormal cervical Papanicol aou smear 839236467 Active LGSIL Yanira Coello MD Attn: Edwige g,[address] [facility], [place], [address], [facility] 6 11:06:03 Obesity 869844655 Active Yanira Coello MD Attn: Accountin g,[address] [facility], [place], [address], [place] - [facility] 6 11:06:03 Cervicova ginal cytology: Low grade squamous intraepit helial lesion 142208143 Active Yanira Coello MD Attn: Accountin g,[address] [facility], [place], [address], [place] - [facility] 6 11:06:03 On examinati on - pain Active Yanira Coello MD Attn: Accountin g,[address] [place], [address], [facility] - [facility] 6 11:06:03 Low grade squamous intraepit helial lesion on cervical Papanicol aou smear 088246218922 05 Active Yanira Coello MD Attn: Accountin g,[address] [place], [address], [place] [facility] 6 11:06:03 Endometri um thickened 971061376 Active Yanira Coello MD Attn: Accountin g,[address] [place], [address], [facility] - [facility] 6 11:06:03 Essential hypertens ion 40708135 Active Yanira Coello MD Attn: Accountin g,[address] [place], [address], [place] [facility] 6 15:45:51 Diabetes mellitus 45817014 Active off of metformin e Yanira Coello MD Attn: Accountin g,[address] [place], [address], [place] - [facility] 8 12:30:03 Hyperlipi demia 10034880 Active Yanira Coello MD Attn: Accountin g,[address] [place], [address], [place] [facility] 6 15:45:51 Chronic obstructi ve pulmonary disease 31591415 Active with pulmonary nodule -stable -CT chest 06/14-Dr.H tasha Coello MD Attn: Edwige young,[address] [place], [address], [place] [facility] 8 14:41:06 Chronic back pain 434665985 Active seeing who prescribe d Xanax /vicodin/ soma Yanira Coello MD Attn: Edwige young,[address] [place], [address], [place] [facility] 7 10:04:04 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 /Dr.Sriha Nash Coello MD Attn: Edwige young,[address] [place], [address], [place] [facility] 7 17:18:46 Thyroid nodule 187837496 Active s/p partial thyroidec ryne Coello MD Attn: Edwige young,[address] [place], [address], [place] [facility] 7 17:08:30 Mixed anxiety and depressiv e disorder 762655343 Active 2016 Yanira Coello MD Attn: Edwige young,[address] [place], [address], [place] [facility] 7 17:09:20 Smoker 01056327 Active 2016 Yanira Coello MD Attn: Edwige hannah,[address] [place], [address], [place] [facility] 7 14:56:57 Human papilloma virus infection 506515258 Active 2021 EV WADSWORTH MD Attn: Edwige hannah,[address] [place], [address], [place] - [facility] 2 10:25:44 Problem Notes None recorded. Procedures Surgical History Date Name Laterality Status Provider Name and Address Organization Details Recorded Time 08/09/19 25 Endometrial Biopsy completed EV WADSWORTH MD Attn: Accounting,[address] [facility], [place], [address], [facility] 08/08/2024 09:48:45 04/06/19 24 Date of Last Mammogram completed Sunitha Isidro [place] [facility] 08/07/2024 15:28:46 02/25/20 23 Date of Last Pap Smear completed Sunitha Isidro [place] [facility] 08/07/2024 15:28:14 11/05/19 22 Colposcopy completed EV WADSWORTH MD Attn: Accounting,[address] [facility], [place], [address], [facility] - [facility] 11/04/2021 10:28:13 11/05/19 22 colposcopy completed Sunitha Isidro [place] 11/04/2021 09:07:42 02/27/19 21 Other completed Sunitha Isidro [place] 10/28/2021 10:00:51 01/03/20 17 Colposcopy completed Sunitha Isidro [place] 01/02/2017 14:10:43 12/17/19 16 Colposcopy completed Jhoana Vuews [place] 12/17/2015 13:27:27 12/17/19 16 Endometrial Biopsy completed Jhoana Dorsey [place] 12/17/2015 13:27:52 10/29/19 15 Colposcopy completed Jhoana Dorsey [place] 10/28/2014 10:13:15 Hernia Repair completed Sunitha [place]offe[place]ford [place] 11/29/2017 11:09:50 Other completed Sunitha [place]ford [place] 11/29/2017 11:10:07 Other completed Sunitha [place]ford [place] 11/29/2017 11:10:25 Other completed Sunitha Isidro [place] 11/29/2017 11:11:00 Tubal Ligation completed Sunitha [place] 11/11/2015 12:06:35 Tonsillectomy completed Sunitha [place] 10/28/2014 08:57:08 Back Surgery completed Sunitha [place]ford [place] 10/29/2014 15:33:36 Imaging Results None recorded. Procedure Notes None recorded. Medical Equipment None Reported. Allergies Allergen ID Allergen Name Allergen Category Reaction Reaction Severity Criticality Documentation Date Start Date Code Code System Note Provider Name and Address Organization Details Recorded Time 24445 Product containin g penicilli n (product) medicatio n Not available Not available Not available 10/07/2014 90355 8001 SNOMED Joya Parada LPN null, [place] [facility] 5 17:07:08 91082 ibuprofen medicatio n Not available Not available Not available 10/07/2014 5640 RxNorm Joya Parada GENERATION TECHNOLOGIST null, [place] [facility] 5 17:07:08 11422 Chantix medicatio n Not available Not available Not available 10/07/2014 38687 0 RxNorm Joya Parada GENERATION TECHNOLOGIST [place], [place] [facility] 5 17:07:08 09434 Lyrica medicatio n Not available Not available Not available 10/07/2014 25151 1 RxNorm Joya Parada GENERATION TECHNOLOGIST null, [place] [facility] 5 17:07:08 Medications Name Sig Start Date Stop Date Status Note LastModified by Organization Details LastModified Time carisopro dol 350 mg tablet TAKE 1 TABLET BY MOUTH THREE TIMES DAILY 02/24 completed pt was taking off of this medicati on she is going to see a new neurolog ist Not Available Not Available Not Available silver sulfadiaz ine 1 % topical cream APPLY 1 APPLICAT ION TOPICALL Y TO THE AFFECTED AREA TWICE DAILY FOR 10 DAYS 08/07 completed Not Available Not Available Not Available metformin 500 mg tablet Take 1 tablet twice a day by oral route. 05/03 completed does not take Not Available Not Available Not Available atorvasta tin 20 mg tablet TAKE 1 TABLET BY MOUTH DAILY active Not Available Not Available No t Available nicotine 14 mg/24 hr daily transderm al patch Apply 1 patch every day by transder mal route. 02/24 completed no longer taking Not Available Not Available Not Available citalopra m 40 mg tablet active Not Available Not Available Not Available azithromy lissette 250 mg tablet TAKE 2 TABLETS (500 MG) BY ORAL ROUTE ONCE DAILY FOR 1 DAY THEN 1 TABLET (250 MG) BY ORAL ROUTE ONCE DAILY FOR 4 DAYS 05/03 completed Not Available Not Available Not Available aspirin 325 mg tablet Take 1 tablet 3 times a day by oral route. active Not Available Not Available No t Available alprazola m 1 mg tablet TAKE 1 TABLET BY MOUTH THREE TIMES DAILY NEEDED FOR ANXIETY active Not Available Not Available No t Available ofloxacin 0.3 % eye drops 10/28 completed Not Available Not Available Not Available hydrocodo ne 5 mg-acetam inophen 325 mg tablet 05/10 completed Not Available Not Available Not Available Nystop 100,000 unit/gram topical powder APPLY TOPICALL Y TWICE DAILY 10/15 completed Not Available Not Available Not Available Nicoderm CQ 21 mg/24 hr daily transderm al patch Apply 1 patch every day by transder mal route for 42 days. 09/07 completed Not Available Not Available Not Available lisinopri l 20 mg tablet TAKE 2 TABLETS BY MOUTH DAILY active Not Available Not Available No t Available famotidin e 40 mg tablet TAKE 1 TABLET BY MOUTH DAILY 02/24 completed Not Available Not Available Not Available permethri n 5 % topical cream active Not Available Not Available Not Available topiramat e 25 mg tablet 08/07 completed Not Available Not Available Not Available ciproflox acin 250 mg tablet TAKE 1 TABLET BY MOUTH EVERY 12 HOURS active Not Available Not Available No t Available hydrocodo ne 10 mg-acetam inophen 325 mg tablet TAKE 1 TABLET BY MOUTH EVERY 6 HOURS NEEDED FOR PAIN active Not Available Not Available No t Available omeprazol e 40 mg capsule,d elayed release Take by oral route for 90 days. 12/29 completed Not Available Not Available Not Available ketorolac 0.5 % eye drops 10/28 completed Not Available Not Available Not Available alprazola m 0.5 mg tablet TAKE 1 TABLET BY MOUTH THREE TIMES DAILY 10/28 completed Not Available Not Available Not Available prednisol one acetate 1 % eye drops,gabino pension 10/28 completed Not Available Not Available Not Available pantopraz ole 40 mg tablet,de layed release TAKE 1 TABLET BY MOUTH EVERY MORNING active Not Available Not Available No t Available lisinopri l 10 mg tablet TAKE 2 TABLETS BY MOUTH DAILY 02/24 completed pt is taking 20 mg Not Available Not Available Not Available metoprolo l tartrate 50 mg tablet TAKE 1 TABLET BY MOUTH EVERY 12 HOURS active Not Available Not Available No t Available monteluka st 10 mg tablet TAKE 1 TABLET BY MOUTH DAILY active Not Available Not Available No t Available ranitidin e 150 mg capsule TAKE ONE CAPSULE BY MOUTH TWICE DAILY 10/15 completed Not Available Not Available Not Available hydrochlo rothiazid e 25 mg tablet active Not Available Not Available Not Available furosemid e 20 mg tablet TAKE 1 TABLET BY MOUTH EVERY MORNING active Not Available Not Available No t Available levofloxa lissette 500 mg tablet TAKE 1 TABLET BY MOUTH DAILY FOR 3 DAYS 02/24 completed Not Available Not Available Not Available levofloxa lissette 750 mg tablet 11/29 completed Not Available Not Available Not Available albuterol sulfate HFA 90 mcg/actua tion aerosol inhaler INHALE 1 TO 2 PUFFS BY MOUTH EVERY 4 TO 6 HOURS NEEDED FOR SHORTNES S OF BREATH OR WHEEZING 02/24 completed pt states no longer using Not Available Not Available Not Available morphine 15 mg immediate release tablet active Not Available Not Available Not Available cefdinir 300 mg capsule TAKE 1 CAPSULE BY MOUTH EVERY 12 HOURS active Not Available Not Available No t Available topiramat e 100 mg tablet TAKE 1 TABLET BY MOUTH DAILY active Not Available Not Available No t Available fluoxetin e 20 mg capsule TAKE 1 CAPSULE BY MOUTH EVERY DAY 10/15 completed Not Available Not Available Not Available metformin ER 500 mg tablet,ex tended release 24 hr active Not Available Not Available Not Available doxycycli ne hyclate 100 mg tablet TAKE 1 TABLET BY MOUTH TWICE DAILY 08/07 completed Not Available Not Available Not Available mometason e 0.1 % topical cream active Not Available Not Available Not Available topiramat e 50 mg tablet TAKE 1 TABLET BY MOUTH DAILY 08/07 completed Not Available Not Available Not Available Spiriva with [employer] r 18 mcg and inhalatio n capsules active Not Available Not Available Not Available nitrofura ntoin monohydra te/macroc rystals 100 mg capsule TAKE 1 CAPSULE BY MOUTH EVERY 12 HOURS FOR 5 DAYS 08/07 completed Not Available Not Available Not Available fenofibra te 160 mg tablet active Not Available Not Available Not Available iron active Not Available Not Availa ble Not Available B12 active Not Available Not Availa ble Not Available Accu-Chek Candy Plus test strips USE TO TEST BLOOD SUGAR DAILY 10/28 completed Not Available Not Available Not Available potassium gluconate 550 mg (90 mg) tablet Take 1 tablet twice a week by oral route. 10/15 completed Not Available Not Available Not Available Spiriva Respimat 2.5 mcg/actua tion solution for inhalatio n Inhale 2 puffs every day by inhalati on route. active as needed Not Available Not Available Not Available BinaxNOW COVID-19 Ag Self Test kit TEST DIRECTED TODAY 10/28 completed Not Available Not Available Not Available Vitals Date Recorded Body height Body mass index (BMI) Body weight Oxygen saturation Heart rate Body temperature Systolic And Diastolic Provider Name and Address Organization Details Last Updated DateTime 5 157.48 cm 28.4 kg/m2 69378.5 7 g 97 % 91 /min 97.6 [degF] 114/77 mm[Hg] [facility] 5 15:22:02 Date Recorded Body height Body mass index (BMI) Body weight Oxygen saturation Heart rate Body temperature Systolic And Diastolic Provider Name and Address Organization Details Last Updated DateTime 5 157.48 cm 28.4 kg/m2 61436.5 7 g 97 % 88 /min 97.5 [degF] 140/84 mm[Hg] [facility] 5 09:07:45 Date Recorded Body height Body mass index (BMI) Body weight Oxygen saturation Heart rate Body temperature Systolic And Diastolic Provider Name and Address Organization Details Last Updated DateTime 5 157.48 cm 28 kg/m2 95328.9 8 g 96 % 83 /min 97.5 [degF] 109/72 mm[Hg] [facility] 5 15:36:12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 [address] 08/14/2024 15:15:12 09/03/2024 13:13:57 Mass of uterus [id number] 31256 N85.8 093306 - Pelvic US, 06/17/24 showed 1.6 cm fibroid with central hypoechoic area concerning for necrotic changes as well as a cystic area in the endometriu m measuring 14 mm (endometri um w/o cyst measures 9.2 mm).- EMB, 08/08/24: Path report shows strips of atrophic endometriu m without atypica.- 08/14/24: f/u CEA. Referred to [facility] for further evaluation and treatment of endometria l mass. Health Concerns Section Related Observation LastModified by Organization Detai ls LastModified Time None Recorded Concern Status LastModified by Organization Details LastModified Time None Recorded Advance Directives Directive Y: pt states she wants to be DNR and has filled out ppwk Payers Insurance Date Sequence Insurance Name Policy Number Policy Johnson Covered Member ID Johnson Member ID Guarantor Name 08/07/2024 MEDICARE [place]: [facility] [place] [id number] [place] 08/07/2024 1 [place] [id number] [place] 08/07/2024 1 [place] [id number] [place] 08/07/2024 [place] [facility] [place] [id number] [place] 09/03/2024 1 [employer] (MEDICARE REPLACEMENT/ ADVANTAGE - HMO) [place] [id number] [place] 08/07/2024 2 *SELF PAY* Malave soriano I Manners 08/07/2024 1 [employer] (MEDICARE REPLACEMENT/ ADVANTAGE - [place]PO) [id number] [place] [id number] [place] 10/17/2017 PAYMENT PLAN [place] Notes Date Note Type Note Provider Name and Address Organization Details Recorded Time 11/04/2021 text/html ROS as noted in the HPI Procedure only: colposcopy Cervical cancer screening historyPatient reports previous cervical procedure -- unsure if LEEP or cone [id number] - LSIL with +[id number] - NILM with +[id number] - NILM with +hrHPV - Current smoker- Menopausal with history of tubal ligation EV WADSWORTH MD Attn: Accounting[address] [facility], [place], [address], [place] 11/04/2021 11:11:47 02/24/2023 text/html ROS as noted in the HPI Annual wellness- PCP: Susie Marshall MD Concerns today- None Infection risk- Prior testing for HIV? Not sure- Prior testing for HepC? Not sure- History of STIs? HPV- Currently having unprotected sex? Not sexually active Plans for - Menopause or tubal ligation? Menopause Cancer screenings- Breast cancer: Negative or benign mammograms in 2015, 2017, 2020, and 2022.- Cervical cancer: History of abnormal Pap and HPV [id number] - LSIL with +[id number] - NILM with +[id number] - NILM with +[id number] - colposcopy with biopsy showed HPV effect and inflammation; plan to follow up with repeat HPV testing in 1 year- Colon cancer: Had normal colonoscopy years ago. Continuing stool-based testing with PCP.- Lung cancer: Reports history of CT chest. Managed by pharmacovigilance scientist. EV AWDSWORTH MD Attn: [address] [place], [address], [place] 02/24/2023 14:32:14 08/07/2024 text/html ROS as noted in the HPI Uterine mass- Sent for evaluation by PCP's office for uterine mass seen on CT. PCP's HIRE CAR DRIVER ordered pelvic US to follow up.- Pelvic US performed 06/17/24 showed 1.6 cm fibroid with central hypoechoic area concerning for necrotic changes as well as a cystic area in the endometrium measuring 14 mm (endometrium w/o cyst measures 9.2 mm). Radiology report recommends excluding endometrial carcinoma.- Uterine bleeding? No. Went through menopause at age 51 or 52.- Pelvic pain/pressure? Yes, occasionally- History of 5+ years of tamoxifen use? No- HIstory of pelvic radiation? No- FHx of endometrial, uterine cancer? No but has strong FHx of cancers in 1st degree relatives (father, brother)- Has history of left partial thyroidectomy for thyroid nodule. Has a small spot on her right parathyroid.- Reports history of borderline stage 2 or stage 3 cervical cancer. Had what sounds like cryotherapy and LEEP for treatment. - Has had multiple problems pop up in the past few months- Had dysuria and malodorous urine for a couple of months. Thought it might be a UTI. Had WBC of 19k. Every time she came off of the Abx, her WBC count shot right back up.- Then 4th toe of left foot became necrotic a couple of months ago. Was told this is a vascular issue. Lost tip of toe and follows with wound care now.- Following with heme/onc specialist for leukocytosis EV WADSWORTH MD Attn: Accounting[address] [facility], [place], [address], [place] 08/31/2024 19:44:14 08/08/2024 text/html ROS as noted in the HPI Uterine mass- Here for EMB Additional imaging review-Patient provided imaging and results from recent workups; per patient at last visit, multiple problems have popped up in the past few months and wasn't sure if any of it was related to her current [facility] concerns- Sees Dr. Ricardo at [facility] (heme/onc) - sent for leukocytosis; normal flow cytometry (03/26/2024)- COLTON 05/20/24: right - 0.93, left 0.41- Arterial duplex, left 05/20/24: atherosclerotic plaque in left common femoral and proximal left superficial femoral arteries- CTA left LE 05/24/24: left femoral common femoral stenosis 50-70%, <50% of left profunda femoral- LDCT 05/22/24: lung-RADS 2, benign EV WADSWORTH MD Attn: Accounting[address] [place], [address], [facility] - [place] 08/31/2024 19:48:09 08/14/2024 text/html ROS as noted in the HPI EMB results- Patient walked into office to discuss results of recent EMB EV WADSWORTH MD Attn: Accounting[address] [place], [address], [facility] - [place] 08/31/2024 19:50:40 OBGyn Episode Ob Episode Information Episode Created Date Number of Fetuses Patient Bloodtype Patient rh Status Prepregnancy Weight lbs Domestic Partner Domestic Partner Phone Father Name Stock Clerk Self Service Store Status 10/18/19 15 1 CLOSED Fetus Data First Name Last Name Admitted to NICU Weight (g) Sex Living Outcome Pediatric Complications Fetus ID Race Codes Race Delivery Type 3742.13 4 M Full Term [id number] Vaginal Devin Calculation Initial Devin Date Initial Exam Date Initial Exam Provider Initial Ultrasound Date Last Menstrual Period Date Ultra Sound Weeks Gestation 0 Eighteen To Twenty Week Devin Update Ultra Sound Date Fundal Height At Umbil Quickening Date Ultra Sound Latest Weeks Gestation Final Devin Confirmed By Final Devin Confirmed Date Final Devin Date Ultra Sound Latest Days Gestation 0 0 Menstrual History Last Menstrual Date Menses Monthly On Bcp Conception Prior Menses Frequency Hcg Plus Date Menarche Onset Age Delivery Information Delivery Date Delivery Type Labor Anesthesia Weeks Gestation Incision Type Labor Labor Length Hrs Delivered By Post Complications Tubal Sterilization Discharge Date Comments 4 Discharge Information Feeding Method Contraceptive Method Maternal HG B and HCT Levels
--- OUTSIDE RECORDS SUMMARY | 2025-02-10 18:09 | XMS_ITS | Encounter Summary ---
Author Organization [facility] Address [address], [place] [address] Phone Care Team Providers Care Vice President Digital Strategist Name Role Phone Tito Hoyos MD Primary Care Provider [phone] Reason for Visit * Reason Comments Med Refill Encounter Details Date Type Department Care Team (Late st Contact Info) Description 12/26/2020 Refill [facility] Nephrology and Hypertension [address] [place] [address], [address] [place], [place] [id number] Lisette Cao MD [facility], [address] [place] [address] Social History Tobacco Use Types Packs/Day Years [...] on filedocumented in this encounter Care Teams Vice President Digital Strategist Relationship Specialty Start Date End Date Tito Hoyos MD [address] [place] [address] PCP - General Family Medicine 12/05/18 documented as of this encounter
--- OUTSIDE RECORDS SUMMARY | 2025-02-10 18:09 | XMS_ITS | Encounter Summary ---
Author Organization [facility] Address [address], [place] [address] Phone Care Team Providers Care Certified Adaptive Physical Educator Name Role Phone Tito Hoyos MD Primary Care Provider [phone] Reason for Visit * Reason Comments Med Refill Encounter Details Date Type Department Care Team (Late st Contact Info) Description 06/29/2018 Refill [facility] Nephrology and Hypertension [facility] [facility], [place] [address] Lisette Cao MD [facility], [address] [place] [address] Social History Tobacco Use Types Packs/Day Years [...] on filedocumented in this encounter Care Teams Certified Adaptive Physical Educator Relationship Specialty Start Date End Date Tito Hoyos MD [address] [place] [address] PCP - General Family Medicine 12/05/18 documented as of this encounter
--- OUTSIDE RECORDS SUMMARY | 2025-02-10 18:09 | XMS_ITS | Encounter Summary ---
Author Organization [facility] Address [address], [place] [address] Phone Care Team Providers Care Hand Kiss Setter Name Role Phone Tito Hoyos MD Primary Care Provider [phone] Reason for Visit * Reason Comments Med Refill Encounter Details Date Type Department Care Team (Late st Contact Info) Description 06/13/2018 Refill [facility] Nephrology and Hypertension [address] [place] [address], [address] [place], [place] [phone] Lisette Cao MD [address] [facility], [address] [place] [address] Social History Tobacco Use Types Packs/Day Years [...] on filedocumented in this encounter Care Teams Hand Kiss Setter Relationship Specialty Start Date End Date Tito Hoyos MD [address] [place] [address] PCP - General Family Medicine 12/05/18 documented as of this encounter
--- OUTSIDE RECORDS SUMMARY | 2025-02-10 18:09 | XMS_ITS | Encounter Summary ---
Author Organization [facility] Address [address], [place] [address] Phone Care Team Providers Care Crutching Contractor Name Role Phone Tito Hoyos MD Primary Care Provider [phone] Reason for Visit * Reason Comments Med Refill Encounter Details Date Type Department Care Team (Late st Contact Info) Description 07/05/2021 Refill [facility] Nephrology and Hypertension [address] [place] [address], [address] [place], [place] [id number] Lisette Cao MD [facility], [address] [place] [address] Social History Tobacco Use Types Packs/Day Years [...] on filedocumented in this encounter Care Teams Crutching Contractor Relationship Specialty Start Date End Date Tito Hoyos MD [address] [address] PCP - General Family Medicine 12/05/18 documented as of this encounter
--- OUTSIDE RECORDS SUMMARY | 2025-02-10 18:09 | XMS_ITS | Clinical Summary ---
Author Organization [facility] Address [address] [place] [address] Phone Care Team Providers Care Leadership Program Intern Name Role Phone Farhad Marshall MD Primary Care Provider [phone] Rupal Taveras APRN, MANAGER ICU Unavailable [phone] Allergies Active Allergy Reactions Criticality Noted Date [...] Comments Blood Pressure 120/74 04/17/2023 9:28 AM ORGAN TUNER ELECTRONIC Pulse 91 04/17/2023 9:28 AM ORGAN TUNER ELECTRONIC Temperature 36.4 C (97.6 F) 04/17/2023 9:28 AM ORGAN TUNER ELECTRONIC Respiratory Rate 18 04/17/2023 9:28 AM ORGAN TUNER ELECTRONIC Oxygen Saturation 96% 04/17/2023 9:28 AM ORGAN TUNER ELECTRONIC Inhaled Oxygen Concentration - - Weight 82.7 kg (182 lb 6.4 oz) 04/17/2023 9:28 A M ORGAN TUNER ELECTRONIC Height 154.9 cm (5' 1) 04/17/2023 9:28 AM ORGAN TUNER ELECTRONIC Body Mass Index 34.46 04/17/2023 9:28 AM ORGAN TUNER ELECTRONIC Plan of Treatment Health Maintenance Due Date Last Done Comments DEXA Bone Density 1955 Hepatitis C Virus (HCV) Screening 1955 Mammogram 1955 Cologuard 05/19/1999 Colonoscopy 05/19/1999 Colorectal Cancer Screening 05/19/1999 Immunochemical Fecal Occult Blood 05/19/1999 Respiratory Syncytial Virus (RSV) Immunization (Adult) (1 - Risk 50-74 years 1-dose series) 2004 Pneumococcal Immunization (50+ years) (2 of [...] complete this topic Human Papillomavirus (HPV) Immunization (No Doses Required) Completed Meningococcal Immunization (ACWY) Aged Out No longer eligible based on patient's age to complete this topic Rotavirus Immunization Aged Out No lo nger eligible based on patient's age to complete this topic Insurance MEDICARE C [employer] [facility] Care Teams Leadership Program Intern Relationship Specialty Start Date End Date Farhad Marshall MD PCP - General Family Medicine 12/22/22 Rupal Taveras, CONFIDENTIAL INVESTIGATOR, MANAGER ICU [address] [place] [address] Nurse Practitioner Advanced Practice Nurse 12/22/22
--- OUTSIDE RECORDS SUMMARY | 2025-02-10 18:09 | XMS_ITS | Clinical Summary ---
Author Organization [facility] Address [address] [place] [address] Care Team Providers Care Tool Pusher Name Role Phone Farhad Marshall MD Primary Care Provider [phone] Allergies Active Allergy Reactions Criticality Noted Date [...] Encounters Date Type Department Care Team Description 01/03/2025 11:30 AM MACHINE STAMPER Office Visit [facility] Oncology and Hematology [facility] [address] [place] [address] Eric Ricardo MD Chronic anemia (Primary Dx) 01/03/2025 Orders Only [facility] Oncology and Hematology [facility] [address] [place] [address] Eric Ricardo MD 12/18/2024 External Device Data STL ABSTRACTION Provider, [...] on file Legal Sex Female 12:27 PM MACHINE STAMPER Gender Identity Not on file Sexual Orientation Not on file Last Filed Vital Signs Vital Sign Reading Time Taken Comments Blood Pressure 137/67 01/03/2025 11:18 AM MACHINE STAMPER Pulse 63 01/03/2025 11:18 AM MACHINE STAMPER Temperature 36.6 C (97.8 F) 01/03/2025 11:18 AM MACHINE STAMPER Respiratory Rate 15 07/19/2024 9:25 AM CDT Oxygen Saturation 97% 01/03/2025 11:18 AM MACHINE STAMPER Inhaled Oxygen Concentration - - Weight 65.3 kg (144 lb) 01/03/2025 11:18 AM MACHINE STAMPER Height 154.9 cm (5' 1) 03/19/2024 1:59 PM MACHINE STAMPER Body Mass Index 27.21 03/19/2024 1:59 PM MACHINE STAMPER Plan of Treatment Upcoming Encounters Date Type Department Care Team (Late st Contact Info) Description 05/07/2025 2:15 PM CDT Office Visit [facility] Oncology and Hematology - D[address] [facility] [address] [place] [address] Eric Ricardo MD [address] [facility] [address] [place] [address] Health Maintenance Due Date Last [...] - Risk 50-74 years 1-dose series) 2004 PNEUMOCOCCAL VACCINE 50+ YEA RS (2 of 2 - PPSV23, PCV20, or PCV21) 01/04/2016 11/09/2015 OSTEOPOROSIS SCREENING 05/19/2019 INFLUENZA VACCINE (#1) 2024 COVID-19 Vaccine (2024-2 6 season) 2024 03/14/2024, 11/20/2021, 06/11/2021, Additional history exists DTAP/TDAP/TD VACCINES (2 - T d or Tdap) 09/01/2032 09/01/2022, 02/27/2010 ZOSTER VACCINE Completed 05/17/2023, 10/27/2022 Procedures Procedure Name Priority Date/Time Associated Diagnosis Comments IRON, TIBC, AND PERCENT SATURATION Routine 01/01/2025 1:28 PM MACHINE STAMPER CBC WITH AUTODIFFERENTIAL Routine 2024 12:08 PM MACHINE STAMPER from Last 3 Months Results * IRON, TIBC, AND PERCENT SATURATION (01/01/2025 1:28 PM MACHINE STAMPER) Blood us Eric Ricardo MD CHEMISTRY ORDERABLES Final Resu lt * CBC WITH AUTODIFFERENTIAL (01/01/2025 12:08 PM MACHINE STAMPER) Blood us Eric Ricardo MD HEMATOLOGY ORDERABLES Final Res ult from Last 3 Months Insurance Care Teams Tool Pusher Relationship Specialty Start Date End Date Farhad Marshall MD [address] [place] [address] PCP - General Family Practice 01/19/24
== END 2025-02-10 16:03 | disposition home or self-care (01) ==
PROVIDERS: PCP Family Medicine; Visit Provider Family Medicine
DX: M54.12 Radiculopathy, cervical region (principal); M25.511 Pain in right shoulder; M25.512 Pain in left shoulder
CPT/HCPCS: 72040; 72072; 72100; 73030